=== PATIENT | female | born 1950 | race Caucasian/White ===

== ENCOUNTER 2017-12-08 15:33 | Inpatient (IN) | payer MEDICARE, OTHER ==
[~2017-12-08] VITALS: Ht 157.5 cm; Wt 90.0 kg
[~2017-12-08 15:33] MED LIST: ESTR1.25; FLUTI220I; SYNT25TA; TRAZ300T2; TRIA3AER
[2017-12-08 15:37] VITALS: BP 127/74; PULSE 73; RESP 18; TEMP 98.3; O2SAT 96
[2017-12-08] MEDS ORDERED: IVIG10P4 IMPLANT (16:13)
[2017-12-08] MEDS ORDERED: SYNT112T PO (16:13)
[2017-12-08] MEDS ORDERED: TRIA1SPR6 EACH NARE (16:13)
[2017-12-08] MEDS ORDERED: ACTO5TAB PO (16:13)
[2017-12-08] MEDS ORDERED: GUAI1TAB18 PO (16:13)
[2017-12-08] MEDS ORDERED: TRAZ100T10 PO (16:13)
[2017-12-08] MEDS ORDERED: ESTR0.5T PO (16:13)
[2017-12-08] MEDS ORDERED: CLAR10CA3 PO (16:13)
--- NOTE | 2017-12-08 16:27 | PD ---
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 She is actually in town from [place] visiting her grandson who was hospitalized. She states she called her regular physician in [place] who follows her for these immune compromise and told her to come to the emergency department to get checked out. She is also has several other complaints including a dry sore throat, some chest discomfort which is very vague as well as some suprapubic discomfort. The patient states she has a history of urinary tract infections and is just completed a course of antibiotics and is scheduled to have a cystoscopy in the near future. She states mild nausea no diarrhea. Also states she has a history of chronic colitis. She states this feels somewhat different however. States symptoms are moderate, left side of her abdomen, so she was some mild nausea, not relieved with prehospital Zofran, context as above. PFSH Past Medical History Asthma: Yes Autoimmune Disease: Yes (GENERALIZED IMMUNE DIFFICIENCY, leukemia) Anxiety: Yes Cardiovascular Problems: Yes (HTN) Diminished Hearing: No Thyroid Disease: Yes ?: Not Past Surgical History Abdominal Surgery: Yes (lypoma and cyst removed) Hysterectomy: Yes Social History Alcohol Use: No Tobacco Use: No Substance Use: No Allergies-Medications (Allergen,Severity, Reaction): Coded Allergies: morphine (Unverified Allergy, Mild, NAUSEA, 02/21/17) Uncoded Allergies: NOVACAINE (Allergy, Severe, 08/05/06) Reported Meds & Prescriptions Reported Meds & Active Scripts Active Reported Trazodone (Trazodone HCl) 100 Mg Tablet 100 Mg PO HS Actonel (Risedronate) 5 Mg Tab 25 Mg PO DAILY Mucinex (Guaifenesin) 1,200 Mg Tab.er.12h 1 Tab PO DAILY Nasacort Allergy 24Hr Nasal (Triamcinolone Nasal) 55 Mcg Spr 1 [place] EACH NARE DAILY Claritin (Loratadine) 10 Mg Cap 10 Mg PO DAILY Estradiol 0.5 Mg Tab 0.5 Mg PO DAILY Synthroid (Levothyroxine Sodium) 112 Mcg Tab 112 Mcg PO DAILY Privigen Inj (Immune Globulin) 10 % Inj 30 % IMPLANT DIRECTED Review of Systems Except as stated in HPI: all other systems reviewed are Neg Physical Exam Narrative GENERAL: Well-developed well-nourished nontoxic and appears in minimal discomfort. SKIN: Focused skin assessment warm/dry. HEAD: Atraumatic. Normocephalic. EYES: Pupils equal and round. No scleral icterus. No injection or drainage. ENT: No nasal bleeding or discharge. Mucous membranes pink and moist. Oropharynx clear moist, TMs clear bilaterally NECK: Trachea midline. No JVD. CARDIOVASCULAR: Regular rate and rhythm. No murmur appreciated. RESPIRATORY: No accessory muscle use. Clear to auscultation. Breath sounds equal bilaterally. GASTROINTESTINAL: Abdomen soft, trivially tender in all 4 quadrants, there is a left-sided well-healed abdominal scar which she states is from superficial lipoma removal. There is no CVA tenderness, no rebound no percussive tenderness , normal active bowel sounds, nondistended. Hepatic and splenic margins not palpable. MUSCULOSKELETAL: No obvious deformities. No clubbing. No cyanosis. No edema. NEUROLOGICAL: Awake and alert. No obvious cranial nerve deficits. Motor grossly within normal limits. Normal speech. PSYCHIATRIC: Appropriate mood and affect; insight and judgment normal. Data Data Last Documented VS Vital Signs Date Time Temp Pulse Resp B/P (MAP) Pulse Ox O2 Delivery O2 Flow Rate FiO2 12/08/17 19:51 70 20 126/70 (88) 94 Room Air 12/08/17 15:37 98.3 Orders Orders Electrocardiogram (12/08/17 16:21) Ckmb (Isoenzyme) Profile (12/08/17 16:21) Complete Blood Count With Diff (12/08/17 16:21) Comprehensive Metabolic Panel (12/08/17 16:21) Magnesium (Mg) (12/08/17 16:21) Troponin I (12/08/17 16:21) Lipase (12/08/17 16:21) Chest, Single Ap (12/08/17 16:21) Ecg Monitoring (12/08/17 16:21) Bilateral Bp Monitoring (12/08/17 16:21) Iv Access Insert/Monitor (12/08/17 16:21) Oximetry (12/08/17 16:21) Oxygen Administration (12/08/17 16:21) Sodium Chloride 0.9% Flush (Ns Flush) (12/08/17 16:30) Sodium Chlorid 0.9% 500 Ml Inj (Ns 500 M (12/08/17 16:30) Promethazine Inj (Phenergan Inj) (12/08/17 16:30) Ct Abd/Pel W Iv Contrast(Rout) (12/08/17 ) CKMB (12/08/17 16:50) CKMB% (12/08/17 16:50) Lorazepam Inj (Ativan Inj) (12/08/17 17:45) Iohexol 350 Inj (Omnipaque 350 Inj) (12/08/17 18:11) Ketorolac Inj (Toradol Inj) (12/08/17 19:45) Admit Order (Ed Use Only) (12/08/17 ) Consult General Surgery (12/08/17 ) Admit To Inpatient (12/08/17 ) Vital Signs (Adult) Q4H (12/08/17 20:12) Activity Oob Ad Sneha (12/08/17 20:12) Intake + Output SWEETIE.QSHIFT (12/08/17 20:12) Diet Npo (12/09/17 Breakfast) Sodium Chlor 0.9% 1000 Ml Inj (Ns 1000 M (12/08/17 20:12) Sodium Chloride 0.9% Flush (Ns Flush) (12/08/17 20:15) Sodium Chloride 0.9% Flush (Ns Flush) (12/08/17 21:00) Basic Metabolic Panel (Bmp) (12/09/17 06:00) Complete Blood Count With Diff (12/09/17 06:00) Case Management Consult (12/08/17 20:12) Scd Bilateral/Knee High SWEETIE.BID (12/08/17 20:12) Naloxone Inj (Narcan Inj) (12/08/17 20:15) Inpatient Certification (12/08/17 ) Metoclopramide Inj (Reglan Inj) (12/08/17 20:15) Patient Transfer (12/08/17 ) Labs Laboratory Tests Test 12/08/17 16:50 White Blood Count 11.5 TH/MM3 Red Blood Count 5.41 MIL/MM3 Hemoglobin 15.1 GM/DL Hematocrit 46.1 % Mean Corpuscular Volume 85.3 FL Mean Corpuscular Hemoglobin 28.0 PG Mean Corpuscular Hemoglobin Concent 32.8 % Red Cell Distribution Width 12.9 % Platelet Count 255 TH/MM3 Mean Platelet Volume 9.5 FL Neutrophils (%) (Auto) 63.8 % Lymphocytes (%) (Auto) 28.0 % Monocytes (%) (Auto) 6.3 % Eosinophils (%) (Auto) 0.3 % Basophils (%) (Auto) 1.6 % Neutrophils # (Auto) 7.4 TH/MM3 Lymphocytes # (Auto) 3.2 TH/MM3 Monocytes # (Auto) 0.7 TH/MM3 Eosinophils # (Auto) 0.0 TH/MM3 Basophils # (Auto) 0.2 TH/MM3 CBC Comment DIFF FINAL Differential Comment Blood Urea Nitrogen 15 MG/DL Creatinine 0.84 MG/DL Random Glucose 105 MG/DL Total Protein 7.5 GM/DL Albumin 3.8 GM/DL Calcium Level 8.6 MG/DL Magnesium Level 2.2 MG/DL Alkaline Phosphatase 79 U/L Aspartate Amino Transf (AST/SGOT) 25 U/L Alanine Aminotransferase (ALT/SGPT) 28 U/L Total Bilirubin 0.6 MG/DL Sodium Level 139 MEQ/L Potassium Level 4.2 MEQ/L Chloride Level 105 MEQ/L Carbon Dioxide Level 25.7 MEQ/L Anion Gap 8 MEQ/L Estimat Glomerular Filtration Rate 68 ML/MIN Total Creatine Kinase 165 U/L Creatine Kinase MB 1.4 NG/ML Lipase 116 U/L MDM Medical Decision Making Medical Screen Exam Complete: Yes Emergency Medical Condition: Yes Differential Diagnosis Gastritis, gastroenteritis, pancreatitis, colitis, acute abdomen seems unlikely , dehydration, ACS unlikely peer Narrative Course Patient room to the emergency department, has multiple complaints but her chief complaint is abdominal discomfort and nausea and vomiting. Also complains of neck pain as well as some chest discomfort which very vague and some dysuria. Patient's abdomen is fairly benign, has normoactive bowel sounds. On further history the patient states that she has had a small bowel obstruction in the past 2, she has had a hysterectomy in certainly could consider abdominal adhesions. CT of her abdomen was performed showing: Last 24 hours Impressions Chest X-Ray 6/1/18 1621 Signed Impressions: CONCLUSION: No acute cardiopulmonary disease. Abdomen/Pelvis CT 12/08/17 0000 Signed Impressions: CONCLUSION: 1. Abnormal bowel gas pattern with multiple loops of borderline dilated small bowel with air-fluid levels as well as a transition zone in the anterior lower abdomen. The small bowel past this point is decompressed as is the colon. This is of concern for early or partial small bowel obstruction. There is mild infla mmatory change and there is ascitic fluid in the pelvis. 2. 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 3. Hepatic steatosis with subtle low-attenuation lesion right lobe of the live r which is nonspecific. 4. Small hiatal hernia. I reviewed the images and certainly this appears that is more likely a closed loop segment small bowel obstruction. The patient was discussed through OR tech with Dr. Perez who recommends admission to the hospital n.p.o. status and transfer to [facility]. Patient was discussed with Livia FLAHERTY for Dr. Hartmann who is agreeable for admission. NG tube decompression was deferred to the stomach does not appear to have any significant gastric distention, the patient and vomiting. Diagnosis Primary Impression: Small bowel obstruction Admitting Information Admitting Physician Requests: Admit Condition: Stable [place]let Peng MD Dec 08, 2017 16:27
[2017-12-08] MEDS ORDERED: SODIUM CHLORID 0.9% 500 ML INJ 500 ML IV ONE (16:30)
[2017-12-08] MEDS ORDERED: PROMETHAZINE INJ 25 MG/ML VIAL IM ONE (16:30)
--- NOTE | 2017-12-08 16:58 | RADRPT ---
EXAM DATE: 12/08/2017 4:47 PM EDT AGE/SEX: 67 years / Female INDICATIONS: Chest pain. CLINICAL DATA: This is the patient's initial encounter. Patient reports that signs and symptoms have been present for 1 day and indicates a pain score of 7/10. MEDICAL/SURGICAL HISTORY: . Thyroid disease, Thyroid cyst, HTN, Asthma, Anxiety, Leukemia Hyst erectomy. Cyst removal, Infusaport COMPARISON: No prior [place] exams available for comparison. FINDINGS: A single AP view of the chest demonstrates the lungs to be symmetrically aerated without evidence of mass, infiltrate or effusion. The cardiomediastinal contours are unremarkable. Osseous structures a re intact. There is a right-sided implantable port catheter in place. There are overlying electrocar diogram leads. CONCLUSION: No acute cardiopulmonary disease. Electronically signed by: Ihsan Segal MD 12/08/2017 4:57 PM EDT
[2017-12-08 17:13] LABS: CHLORIDE 105 MEQ/L (98-107); SODIUM (NA) 139 MEQ/L (136-145)
[2017-12-08 17:15] LABS: AUTOMATED NEUTROPHIL # 7.4 TH/MM3 (1.8-7.7); BASOPHIL # 0.2 TH/MM3 (0-0.2); BASOPHIL % 1.6 % (0.0-2.0); EOSINOPHIL % 0.3 % (0.0-4.0); HEMATOCRIT 46.1 % (35.0-46.0); HEMOGLOBIN 15.1 GM/DL (11.6-15.3); LYMPHOCYTE # 3.2 TH/MM3 (1.0-4.8); MEAN CELL VOLUME 85.3 FL (80.0-100.0); MEAN CORPUSCULAR HGB CONC 32.8 % (32.0-36.0); MEAN PLATELET VOLUME 9.5 FL (7.0-11.0); MONO % 6.3 % (0.0-8.0); MONOCYTE # 0.7 TH/MM3 (0-0.9); NEUT % 63.8 % (16.0-70.0); PLATELET COUNT 255 TH/MM3 (150-450); RED BLOOD COUNT 5.41 MIL/MM3 (4.00-5.30); RED CELL DISTRIBUTION WIDTH 12.9 % (11.6-17.2); WHITE BLOOD COUNT 11.5 TH/MM3 (4.0-11.0)
[2017-12-08 17:17] LABS: ALBUMIN 3.8 GM/DL (3.4-5.0); BICARBONATE 25.7 MEQ/L (21.0-32.0); BLOOD UREA NITROGEN 15 MG/DL (7-18); CALCIUM 8.6 MG/DL (8.5-10.1); GLUCOSE,RANDOM 105 MG/DL (74-106); MAGNESIUM 2.2 MG/DL (1.5-2.5)
[2017-12-08 17:20] LABS: ALT (GPT) 28 U/L (10-53); AST (GOT) 25 U/L (15-37); CREATININE 0.84 MG/DL (0.50-1.00); GLOMERULAR FILTRATION RATE 68 ML/MIN (>89)
[2017-12-08 17:22] LABS: TOTAL BILIRUBIN ADULT 0.6 MG/DL (0.2-1.0); TOTAL PROTEIN 7.5 GM/DL (6.4-8.2)
[2017-12-08 17:23] LABS: ALKALINE PHOSPHATASE 79 U/L (45-117)
[2017-12-08 17:25] LABS: TROPONIN I LESS THAN 0.02 NG/ML (0.02-0.05)
[2017-12-08] MEDS ORDERED: LORazepam 2 MG/ML VIAL IV PUSH ONE (17:45)
[2017-12-08] MEDS: SODIUM CHLORIDE 0.9% FLUSH 10 ML FLUSH IVF PRN ×2 (17:50→19:48)
[2017-12-08] MEDS ORDERED: IOHEXOL 350 MG/ML 10 ML VIAL (for RAD DIAG) IVCONTRAST ONE (18:11)
[2017-12-08 18:23] VITALS: O2SAT 97
--- NOTE | 2017-12-08 18:39 | RADRPT ---
EXAM DATE: 12/08/2017 6:11 PM EDT AGE/SEX: 67 years / Female INDICATIONS: Left abdominal pain and nausea. CLINICAL DATA: This is the patient's initial encounter. Patient reports that signs and symptoms have been present for 1 day and indicates a pain score of 5/10. MEDICAL/SURGICAL HISTORY: Leukemia. Hypertension. Asthma. Colitis. Hysterectomy. ORAL CONTRAST: No oral contrast ingested. RADIATION DOSE: 18.72 CTDI (mGy) COMPARISON: No prior [place] exams available for comparison. TECHNIQUE: Multiple contiguous axial images were obtained through the abdomen and pelvis following b olus infusion of 90 ml Omnipaque 350 (iohexol) nonionic water-soluble contrast as a single exam dos e. No oral contrast ingested. Using automated exposure control and adjustment of the mA and/or kV ac cording to patient size, the radiation dose was kept as low as reasonably achievable to obtain optima l diagnostic quality images. FINDINGS: Lower Lungs: The visualized lower lungs are clear. Liver: The liver has a homogeneous density with a subtle low-attenuation area noted in the right lobe on axial image #18. There is no dilation of the biliary tree. There is mild hepatic steatosis. The g allbladder is unremarkable. Spleen: Homogeneous density without enlargement. Pancreas: Unremarkable without mass or calcification. Kidneys: Normal in size and shape. No evidence of mass or hydronephrosis. Adrenal Glands: The right adrenal gland is unremarkable. Left adrenal gland contains a low-attenuat ion mass measuring 1.9 x 1.4 cm and 24 Hounsfield units in density. Aorta: The aorta and proximal iliac vessels are grossly unremarkable without aneurysmal dilation. Bowel/Mesentery: No oral contrast was given limiting the sensitivity. There is a small hiatal hernia. There are several loops of borderline dilated small bowel in the midabdomen measuring up to 3 cm in diameter fluid and small air-fluid levels. There is mild surrounding inflammatory change. The distal small bowel is decompressed as is the colon. There is no focal mass. There is a transition zone in th e anterior lower abdomen. There is a [id number] amount of ascitic the pelvis. There are multip le calcified phleboliths. Abdominal Wall: Intact. Retroperitoneum: No evidence of adenopathy in the retrocrural, para-aortic, or deep pelvic regions. Bladder: Contours are smooth. Reproductive Organs: No abnormal masses or calcifications seen. Inguinal: The inguinal region is unremarkable without evidence of adenopathy. Bony Structures: Unremarkable. CONCLUSION: 1. Abnormal bowel gas pattern with multiple loops of borderline dilated small bowel with air-fluid l evels as well as a transition zone in the anterior lower abdomen. The small bowel past this point is decompressed as is the colon. This is of concern for early or partial small bowel obstruction. There is mild inflammatory change and there is ascitic fluid in the pelvis. 2. Low-attenuation lesion in the left adrenal gland most consistent with an adenoma. 3. Hepatic steatosis with subtle low-attenuation lesion right lobe of the liver which is nonspecific . 4. Small hiatal hernia. Electronically signed by: Ihsan Segal MD 12/08/2017 6:38 PM EDT
[2017-12-08] MEDS ORDERED: KETOROLAC TROMETHAMINE 30 MG/ML (IVP) VIAL IV PUSH ONE (19:45)
[2017-12-08 19:51] VITALS: BP 126/70; PULSE 70; RESP 20; O2SAT 94
[2017-12-08] MEDS ORDERED: SODIUM CHLORIDE 0.9% FLUSH 10 ML FLUSH IV FLUSH PRN (20:15)
[2017-12-08] MEDS ORDERED: NALOXONE HCL 0.4 MG/ML AMP IV PUSH PRN (20:15)
[2017-12-08 20:56] VITALS: BP 98/48; PULSE 66; RESP 16; O2SAT 93
[2017-12-08] MEDS: SODIUM CHLORIDE 0.9% FLUSH 10 ML FLUSH IV FLUSH SCH (21:06)
[2017-12-08] MEDS: SODIUM CHLOR 0.9% 1000 ML INJ 1,000 ML IV SCH (21:06)
[2017-12-08 22:38] VITALS: BP_SYST 111; BP_SYST 124; BP_DIAS 57; BP_DIAS 68; PULSE 63; RESP 16; O2SAT 96
[2017-12-08 22:47] VITALS: BP 124/63
[2017-12-09] VITALS: BP 130/73; PULSE 64; RESP 20; TEMP 97.3; O2SAT 96
--- NOTE | 2017-12-09 02:21 | HHI.HP ---
[facility] Service [facility] Primary Care Physician Unknown Admission Diagnosis Small Bowel Obstruction. 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 Patient states on she began to have sharp, abdominal pain, 9/10 throughout with no radiation and with nausea and vomiting. She did have a liquid BM this morning. Denies any chest pain or sob. 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 htn Hypothyroid Past Surgical History lypoma cyst removed Hysterectomy Reported Medications Reported Meds & Active Scripts Active Reported Trazodone (Trazodone HCl) 100 Mg Tablet 100 Mg PO HS Actonel (Risedronate) 5 Mg Tab 25 Mg PO DAILY Mucinex (Guaifenesin) 1,200 Mg Tab.er.12h 1 Tab PO DAILY Nasacort Allergy 24Hr Nasal (Triamcinolone Nasal) 55 Mcg Spr 1 [place] EACH NARE DAILY Claritin (Loratadine) 10 Mg Cap 10 Mg PO DAILY Estradiol 0.5 Mg Tab 0.5 Mg PO DAILY Synthroid (Levothyroxine Sodium) 112 Mcg Tab 112 Mcg PO DAILY Privigen Inj (Immune Globulin) 10 % Inj 30 % IMPLANT DIRECTED Allergies: Coded Allergies: morphine (Unverified Allergy, Mild, NAUSEA, 02/21/17) Uncoded Allergies: NOVACAINE (Allergy, Severe, 08/05/06) Active Ordered Medications Current Medications Medications (Trade) Dose Ordered Sig/Junito Route Start Time Stop Time Status Last Admin (NS Flush) 2 ml UNSCH PRN IVF 12/08/17 16:30 12/08/17 19:48 Sodium Chloride 1,000 ml @ 100 mls/hr Q10H IV 12/08/17 20:12 6/1/18 21:06 (NS Flush) 2 ml UNSCH PRN IV FLUSH 12/08/17 20:15 (NS Flush) 2 ml BID IV FLUSH 12/08/17 21:00 12/08/17 21:06 (Narcan Inj) 0.4 mg UNSCH PRN IV PUSH 12/08/17 20:15 (Reglan Inj) 5 mg Q8H PRN IV PUSH 12/08/17 20:15 (Estradiol) 0.5 mg DAILY PO 12/09/17 09:00 (Synthroid) 112 mcg DAILY@0600 PO 12/09/17 06:00 (Claritin) 10 mg DAILY PO 12/09/17 09:00 (Desyrel) 100 mg HS PO 12/09/17 21:00 Family History patient denies any family history Social History Patient denies any tobacco, alcohol or illicit drug use Physical Exam Vital Signs Vital Signs Date Time Temp Pulse Resp B/P (MAP) Pulse Ox O2 Delivery O2 Flow Rate FiO2 12/09/17 00:00 97.3 64 20 130/73 (92) 96 12/08/17 22:47 68 6 124/63 (83) 96 12/08/17 22:38 63 16 124/68 (86) 96 Room Air 111/57 (75) 12/08/17 20:56 66 16 98/48 (65) 93 Room Air 12/08/17 19:51 70 20 126/70 (88) 94 Room Air 12/08/17 18:23 97 12/08/17 18:23 97 12/08/17 16:06 18 12/08/17 15:37 98.3 73 18 127/74 (91) 96 Physical Exam GENERAL: This is a well-nourished, well-developed patient, in no apparent distress. SKIN: No rashes, ecchymoses or lesions. Cool and dry. HEAD: Atraumatic. Normocephalic. No temporal or scalp tenderness. EYES: Pupils equal round and reactive. Extraocular motions intact. No scleral icterus. No injection or drainage. ENT: Nose without bleeding, purulent drainage or septal hematoma. Throat without erythema, tonsillar hypertrophy or exudate. Uvula midline. Airway patent. NECK: Trachea midline. No JVD or lymphadenopathy. Supple, nontender, no meningeal signs. CARDIOVASCULAR: Regular rate and rhythm without murmurs, gallops, or rubs. RESPIRATORY: Clear to auscultation. Breath sounds equal bilaterally. No wheezes , rales, or rhonchi. GASTROINTESTINAL: Abdomen soft, non-tender, nondistended. No hepato-splenomegaly , or palpable masses. No guarding. MUSCULOSKELETAL: Extremities without clubbing, cyanosis, or edema. No joint tenderness, effusion, or edema noted. No calf tenderness. Negative Homans sign bilaterally. NEUROLOGICAL: Awake and alert. Cranial nerves II through XII intact. Motor and sensory grossly within normal limits. Five out of 5 muscle strength in all muscle groups. Normal speech. Laboratory Laboratory Tests Test 12/08/17 16:50 White Blood Count 11.5 Red Blood Count 5.41 Hemoglobin 15.1 Hematocrit 46.1 Mean Corpuscular Volume 85.3 Mean Corpuscular Hemoglobin 28.0 Mean Corpuscular Hemoglobin Concent 32.8 Red Cell Distribution Width 12.9 Platelet Count 255 Mean Platelet Volume 9.5 Neutrophils (%) (Auto) 63.8 Lymphocytes (%) (Auto) 28.0 Monocytes (%) (Auto) 6.3 Eosinophils (%) (Auto) 0.3 Basophils (%) (Auto) 1.6 Neutrophils # (Auto) 7.4 Lymphocytes # (Auto) 3.2 Monocytes # (Auto) 0.7 Eosinophils # (Auto) 0.0 Basophils # (Auto) 0.2 CBC Comment DIFF FINAL Differential Comment Blood Urea Nitrogen 15 Creatinine 0.84 Random Glucose 105 Total Protein 7.5 Albumin 3.8 Calcium Level 8.6 Magnesium Level 2.2 Alkaline Phosphatase 79 Aspartate Amino Transf (AST/SGOT) 25 Alanine Aminotransferase (ALT/SGPT) 28 Total Bilirubin 0.6 Sodium Level 139 Potassium Level 4.2 Chloride Level 105 Carbon Dioxide Level 25.7 Anion Gap 8 Estimat Glomerular Filtration Rate 68 Total Creatine Kinase 165 Creatine Kinase MB 1.4 Lipase 116 Result Diagram: 12/08/17 1650 12/08/17 1650 Imaging Last Impressions Chest X-Ray 12/08/17 1621 Signed Impressions: CONCLUSION: No acute cardiopulmonary disease. Abdomen/Pelvis CT 12/08/17 0000 Signed Impressions: CONCLUSION: 1. Abnormal bowel gas pattern with multiple loops of borderline dilated small bowel with air-fluid levels as well as a transition zone in the anterior lower abdomen. The small bowel past this point is decompressed as is the colon. This is of concern for early or partial small bowel obstruction. There is mild infla mmatory change and there is ascitic fluid in the pelvis. 2. 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 3. Hepatic steatosis with subtle low-attenuation lesion right lobe of the live r which is nonspecific. 4. Small hiatal hernia. Caprini VTE Risk Assessment Caprini VTE Risk Assessment: No/Low Risk (score <= 1) Caprini Risk Assessment Model Point Value = 1 Point Value = 2 Point Value = 3 Point Value = 5 Age 41-60 Minor surgery BMI > 25 kg/m2 Swollen legs Varicose veins or History of unexplained or recurrent spontaneous Oral contraceptives or hormone replacement Sepsis (< 1 month) Serious lung disease, including pneumonia (< 1 month) Abnormal pulmonary function Acute myocardial infarction Congestive heart failure (< 1 month) History of inflammatory bowel disease Medical patient at bed rest Age 61-74 Arthroscopic surgery Major open surgery (> 45 min) Laparoscopic surgery (> 45 min) Malignancy Confined to bed (> 72 hours) Immobilizing plaster cast Central venous access Age >= 75 History of VTE Family history of VTE Factor V Leiden Prothrombin [id number] Lupus anticoagulant Anticardiolipin antibodies Elevated serum homocysteine Heparin-induced thrombocytopenia Other congenital or acquired thrombophilia Stroke (< 1 month) Elective arthroplasty Hip, pelvis, or leg fracture Acute spinal cord injury (< 1 month) Prophylaxis Regimen Total Risk Factor Score Risk Level Prophylaxis Regimen 0-1 Low Early ambulation 2 Moderate Order ONE of the following: *Sequential Compression Device (SCD) *Heparin 5000 units SQ BID 3-4 Higher Order ONE of the following medications: *Heparin 5000 units SQ TID *Enoxaparin/Lovenox 40 mg SQ daily (WT < 150 kg, CrCl > 30 mL/min) *Enoxaparin/Lovenox 30 mg SQ daily (WT < 150 kg, CrCl > 10-29 mL/min) *Enoxaparin/Lovenox 30 mg SQ BID (WT < 150 kg, CrCl > 30 mL/min) AND/OR *Sequential Compression Device (SCD) 5 or more Highest Order ONE of the following medications: *Heparin 5000 units SQ TID (Preferred with Epidurals) *Enoxaparin/Lovenox 40 mg SQ daily (WT < 150 kg, CrCl > 30 mL/min) *Enoxaparin/Lovenox 30 mg SQ daily (WT < 150 kg, CrCl > 10-29 mL/min) *Enoxaparin/Lovenox 30 mg SQ BID (WT < 150 kg, CrCl > 30 mL/min) AND *Sequential Compression Device (SCD) Assessment and Plan Assessment and Plan 67 y/o female with a history of immunocompromise, 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 SBO Abdominal CT reviewed and shows Abnormal bowel gas pattern with multiple loops of borderline dilated small bowel with air-fluid levels as well as a transition zone in the anterior lower abdomen. The small bowel past this point is decompressed as is the colon. This is of concern for early or partial small bowel obstruction. There is mild inflammatory change and there is ascitic fluid in the pelvis. -Consult general surgery -IVF -Pain management with IV morphine -NPO Hypothyroid, chronic -Resume home medications DVT prophylaxis: SCDs Discussed Condition With Patient and RN Physician Certification 2 Midnight Certification Type: Admission for Inpatient Services Order for Inpatient Services The services are ordered in accordance with Medicare regulations or non- Medicare payer requirements, as applicable. In the case of services not specified as inpatient-only, they are appropriately provided as inpatient services in accordance with the 2-midnight benchmark. Estimated LOS (days): 2 days is the estimated time the patient will need to remain in the hospital, assuming treatment plan goals are met and no additional complications. Post-Hospital Plan: Home Livia Swartz Dec 09, 2017 02:21
[2017-12-09] MEDS: MORPHINE SULFATE 4 MG/ML INJ IV PRN ×2 (02:42→08:05)
[2017-12-09] MEDS: METOCLOPRAMIDE HCL 10 MG/2 ML VIAL IV PUSH PRN ×3 (02:42→19:34)
[2017-12-09] MEDS ORDERED: traZODone HCL 100 MG TAB PO ONE (03:00)
[2017-12-09] MEDS: LEVOTHYROXINE SODIUM 112 MCG TAB PO SCH (05:45)
[2017-12-09] MEDS: SODIUM CHLOR 0.9% 1000 ML INJ 1,000 ML IV SCH ×2 (05:48→15:47)
[2017-12-09 06:03] LABS: BICARBONATE 24.3 MEQ/L (21.0-32.0); CALCIUM 7.7 MG/DL (8.5-10.1); CREATININE 0.74 MG/DL (0.50-1.00)
[2017-12-09 08:00] VITALS: BP 123/63; PULSE 65; RESP 17; TEMP 98.4; O2SAT 93
[2017-12-09] MEDS: LORATADINE 10 MG TAB PO SCH (08:05)
[2017-12-09] MEDS: ESTRADIOL 1 MG TAB PO SCH (08:05)
[2017-12-09] MEDS: SODIUM CHLORIDE 0.9% FLUSH 10 ML FLUSH IV FLUSH SCH ×2 (08:06→19:36)
--- NOTE | 2017-12-09 08:57 | RADRPT ---
EXAM DATE: 12/09/2017 8:46 AM EDT AGE/SEX: 67 years / Female INDICATIONS: Abdominal pain and vomiting. CLINICAL DATA: This is the patient's initial encounter. Patient reports that signs and symptoms have been present for 3 days and indicates a pain score of 5/10. MEDICAL/SURGICAL HISTORY: . Leukemia. Hypertension. Asthma. Colitis. . Hysterectomy. COMPARISON: [facility], CT ABDOMEN & PELVIS W CONTRAST, 12/08/2017. . FINDINGS: Persistent abnormal prominence of a small bowel loop identified within the mid abdomen with the diam eter measuring 3.4 cm. There is air identified within the colon. IV contrast material identified with in the bladder. No free air is identified on this exam. CONCLUSION: Persistent appearance of incomplete small bowel obstruction. No evidence of free air. Electronically signed by: Latanya Diaz MD 12/09/2017 8:55 AM EDT
[2017-12-09] MEDS ORDERED: RISEDRONATE PO SCH (09:00)
[2017-12-09 09:10] LABS: AUTOMATED NEUTROPHIL # 7.3 TH/MM3 (1.8-7.7); BASOPHIL % 0.2 % (0.0-2.0); EOSINOPHIL # 0.1 TH/MM3 (0-0.4); EOSINOPHIL % 0.6 % (0.0-4.0); HEMATOCRIT 40.7 % (35.0-46.0); LYMPH % 25.9 % (9.0-44.0); LYMPHOCYTE # 2.9 TH/MM3 (1.0-4.8); MEAN CELL VOLUME 86.3 FL (80.0-100.0); MEAN CORPUSCULAR HEMOGLOBIN 29.8 PG (27.0-34.0); MEAN CORPUSCULAR HGB CONC 34.5 % (32.0-36.0); MEAN PLATELET VOLUME 9.5 FL (7.0-11.0); MONO % 8.3 % (0.0-8.0); MONOCYTE # 0.9 TH/MM3 (0-0.9); PLATELET COUNT 223 TH/MM3 (150-450); RED BLOOD COUNT 4.72 MIL/MM3 (4.00-5.30); RED CELL DISTRIBUTION WIDTH 13.9 % (11.6-17.2); WHITE BLOOD COUNT 11.2 TH/MM3 (4.0-11.0)
[2017-12-09] MEDS: HYDROmorphone HCL PF 0.5 MG/0.5 ML SYRINGE IV PRN ×4 (11:33→23:26)
[2017-12-09 12:00] VITALS: BP 103/54; PULSE 75; RESP 17; TEMP 98.2; O2SAT 90
[2017-12-09 16:00] VITALS: BP 137/61; PULSE 65; RESP 17; TEMP 97.8; O2SAT 93
--- NOTE | 2017-12-09 16:28 | MB ---
cc: Yuan Perez MD DATE: 12/09/2017 CHIEF COMPLAINT: Abdominal pain, small-bowel obstruction. HISTORY OF PRESENT ILLNESS: The patient is a 67-year-old female with several medical issues including B cell lymphoma, currently on immunotherapy. The patient has a history of previous bowel obstruction 2 years ago, presents with acute onset of abdominal pain. She states the pain started gradually, continued to get worse on night and increase in pain. She noted the pain was somewhat dull and intensity was 7/10 with episodes of 10/10 pain, radiation diffusely throughout the abdomen. She also had associated nausea and vomiting and 1 liquid bowel movement. She denied any shortness of breath or chest pain. She had further workup including CT scan showing small bowel obstruction. The patient is noted to have several surgeries including a large abdominal lipoma removed, hysterectomy. 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 She states a history of a bowel obstruction 2 years ago for which she was treated medically without surgery and resolved with conservative management. PAST MEDICAL HISTORY: B-cell lymphoma, leukemia, hypertension, hypothyroid, history of bowel obstruction. PAST SURGICAL HISTORY: Lymphoma removal, cyst removal, hysterectomy, teratoma excision. MEDICATIONS: See EMR. ALLERGIES: NOVOCAIN AND MORPHINE. SOCIAL HISTORY: Denies smoking, ETOH or IVDA. FAMILY HISTORY: Denies diabetes or hypertension. REVIEW OF SYSTEMS: GENERAL: Denies fevers or chills. HEENT: Denies eye pain or ear pain. NECK: Denies swelling or pain. LUNGS: Denies cough or wheeze. HEART: Denies palpitations or chest pain. ABDOMEN: Complains of nausea, vomiting, and abdominal pain. GENITOURINARY: Denies dysuria or hematuria. ENDOCRINE: Denies polyuria or polydipsia. INTEGUMENT: Denies new masses or lesions. PSYCHIATRIC: Denies change in mood or sensorium. NEUROLOGIC: Denies numbness or tingling. PHYSICAL EXAMINATION: GENERAL: The patient in no acute distress. VITAL SIGNS: Temperature 97.3, pulse 64, respirations 20, blood pressure 130/73, saturation 96%. HEENT: Pupils equal, round, and reactive. NECK: Supple. Trachea midline. LUNGS: Clear to auscultation, bilateral expansion. HEART: S1, S2. Regular rate and rhythm. ABDOMEN: Soft. Positive tenderness to palpation. No rebound, no guarding. Healed surgical incisions. Mildly obese abdomen. EXTREMITIES: Warm and well perfused. NEUROLOGIC: GCS of 15. A 5/5 motor in all extremities. INTEGUMENT: No obvious masses or lesions. NEUROLOGIC: Appropriate insight, appropriate mood and judgment. LABORATORY AND DIAGNOSTIC DATA: WBC 11.5, hemoglobin 15.1, hematocrit 46.1, platelets 255. Sodium 139, potassium 4.2, chloride 105, BUN 15, creatinine 0.8, AST 25, ALT 28, bilirubin 0.6, protein is 7.5, lipase 116. CT reviewed by myself showing dilated small bowel loops, decompressed distal small bowel loops, concern for bowel obstruction. No evidence of free air, no other masses or lesions noted. ASSESSMENT: Patient with a history of small-bowel obstruction treated conservatively, now presents with a recurrence of her bowel obstruction. Immunocompromise, hx of sbo, Hx of previous abdominal surgery. PLAN: After full workup, the patient with the above noted issues, at this point, the patient will attempt initial conservative management including IV fluids, pain control, bowel rest. The patient can have ice chips only. Discussed with the patient, there is a possibility of operative intervention given the findings on the CT scan, possible transition point and patient's continued persistent pain. We will initially check an abdominal x-ray and follow the patient very closely. Discussed with the patient in detail. MD LESLIE Ken/JESÚS , 01:00 PM , 04:27 PM [facility] CENTERDolly
--- NOTE | 2017-12-09 19:06 | HHI.PR ---
Subjective Subjective Notes Still painful in lower abdomen; retching but no further emesis. No real change, according to patient. Objective Vitals/I&O Vital Signs Date Time Temp Pulse Resp B/P (MAP) Pulse Ox O2 Delivery O2 Flow Rate FiO2 12/09/17 16:00 97.8 65 17 137/61 (86) 93 12/08/17 22:38 Room Air Labs Laboratory Tests Test 12/09/17 05:10 White Blood Count 11.2 Red Blood Count 4.72 Hemoglobin 14.0 Hematocrit 40.7 Mean Corpuscular Volume 86.3 Mean Corpuscular Hemoglobin 29.8 Mean Corpuscular Hemoglobin Concent 34.5 Red Cell Distribution Width 13.9 Platelet Count 223 Mean Platelet Volume 9.5 Neutrophils (%) (Auto) 65.0 Lymphocytes (%) (Auto) 25.9 Monocytes (%) (Auto) 8.3 Eosinophils (%) (Auto) 0.6 Basophils (%) (Auto) 0.2 Neutrophils # (Auto) 7.3 Lymphocytes # (Auto) 2.9 Monocytes # (Auto) 0.9 Eosinophils # (Auto) 0.1 Basophils # (Auto) 0.0 CBC Comment DIFF FINAL Differential Comment Blood Urea Nitrogen 14 Creatinine 0.74 Random Glucose 97 Calcium Level 7.7 Sodium Level 143 Potassium Level 3.6 Chloride Level 108 Carbon Dioxide Level 24.3 Anion Gap 11 Estimat Glomerular Filtration Rate 78 Abdomen: Other (Minimally distended; tender to palpation in lower abdomen; no peritoneal signs; some guarding.) A/P Assessment and Plan SBO, unchanged Patient reports no flatus or BM yet. Will recheck labs and KUB in AM, if no change, then anticipate laparoscopy/ laparotomy. Patient is agreeable to proceed. Discussed with patient and medical team - nurse and [facility] doctor (Gregory). Ihsan Talbot MD Dec 09, 2017 19:06
[2017-12-09 20:00] VITALS: BP 105/62; PULSE 78; RESP 17; TEMP 97.9; O2SAT 92
[2017-12-09] MEDS: traZODone HCL 100 MG TAB PO SCH (23:27)
[2017-12-10] VITALS: BP 158/82; PULSE 75; RESP 17; TEMP 97.7; O2SAT 92
[2017-12-10] MEDS ORDERED: SODIUM CHLORID 0.9% 500 ML IV PRN (00:15)
[2017-12-10] MEDS: SODIUM CHLOR 0.9% 1000 ML INJ 1,000 ML IV SCH ×3 (02:05→21:30)
[2017-12-10] MEDS: LEVOTHYROXINE SODIUM 112 MCG TAB PO SCH (05:28)
[2017-12-10 06:10] LABS: AUTOMATED NEUTROPHIL # 6.1 TH/MM3 (1.8-7.7); BASOPHIL # 0.1 TH/MM3 (0-0.2); BASOPHIL % 0.6 % (0.0-2.0); EOSINOPHIL % 0.1 % (0.0-4.0); HEMATOCRIT 39.5 % (35.0-46.0); HEMOGLOBIN 13.1 GM/DL (11.6-15.3); LYMPH % 23.3 % (9.0-44.0); MEAN CELL VOLUME 87.2 FL (80.0-100.0); MEAN CORPUSCULAR HGB CONC 33.2 % (32.0-36.0); MEAN PLATELET VOLUME 9.4 FL (7.0-11.0); MONO % 5.4 % (0.0-8.0); MONOCYTE # 0.5 TH/MM3 (0-0.9); NEUT % 70.6 % (16.0-70.0); PLATELET COUNT 217 TH/MM3 (150-450); RED BLOOD COUNT 4.53 MIL/MM3 (4.00-5.30); WHITE BLOOD COUNT 8.7 TH/MM3 (4.0-11.0)
[2017-12-10 06:34] LABS: BICARBONATE 26.1 MEQ/L (21.0-32.0); CALCIUM 7.7 MG/DL (8.5-10.1); CREATININE 0.71 MG/DL (0.50-1.00)
--- NOTE | 2017-12-10 06:47 | RADRPT ---
EXAM DATE: 12/10/2017 6:40 AM EDT AGE/SEX: 67 years / Female INDICATIONS: Abdominal pain. CLINICAL DATA: This is the patient's subsequent encounter. Patient reports that signs and symptoms h ave been present for 3 days and indicates a pain score of 4/10. MEDICAL/SURGICAL HISTORY: . Leukemia. Hypertension. Asthma. Colitis . Hysterectomy COMPARISON: [facility], CT ABDOMEN & PELVIS W CONTRAST, 12/08/2017. . FINDINGS: There is persistently distended small bowel in the right abdomen. The segments measure up to 3.7 cm. (Bowel dilatation on the left side of the abdomen is not seen. There is air within a nondistended co vasile. Free air is not seen. CONCLUSION: Persistently dilated small bowel in the right abdomen. Electronically signed by: Bert Khalil MD 12/10/2017 6:46 AM EDT
[2017-12-10] MEDS: METOCLOPRAMIDE HCL 10 MG/2 ML VIAL IV PUSH PRN (06:54)
[2017-12-10 08:00] VITALS: BP 126/58; PULSE 71; RESP 18; TEMP 99.5; O2SAT 92
[2017-12-10] MEDS: LORATADINE 10 MG TAB PO SCH (08:29)
[2017-12-10] MEDS: SODIUM CHLORIDE 0.9% FLUSH 10 ML FLUSH IV FLUSH SCH ×2 (08:30→23:22)
[2017-12-10] MEDS: ESTRADIOL 1 MG TAB PO SCH (08:30)
[2017-12-10] MEDS: HYDROmorphone HCL PF 0.5 MG/0.5 ML SYRINGE IV PRN (08:31)
--- NOTE | 2017-12-10 08:45 | EKG ---
Date Performed: 12/08/2017 Time Performed: 16:36:03 PTAGE: 67 years EKG: Sinus rhythm LOW QRS VOLTAGE IN PRECORDIAL LEADS NONSPECIFIC T-WAVE ABNORMALITY BORDERLINE ECG PREVIOUS TRACING : 11/02/1999 23.42 Since previous tracing, PVC(s) are no longer present. Nonsp ecific T-wave changes are new. QRS voltage is somewhat less in the precordial leads. DOCTOR: Yobani Nascimento Interpretating Date/Time 12/10/2017 08:44:34
--- NOTE | 2017-12-10 11:46 | HHI.PR ---
Subjective Subjective Notes persistent pain, wbc normal, nausea, no bm Objective Vitals/I&O Vital Signs Date Time Temp Pulse Resp B/P (MAP) Pulse Ox O2 Delivery O2 Flow Rate FiO2 12/10/17 08:00 99.5 71 18 126/58 (80) 92 12/08/17 22:38 Room Air Labs Laboratory Tests Test 12/10/17 04:00 White Blood Count 8.7 Red Blood Count 4.53 Hemoglobin 13.1 Hematocrit 39.5 Mean Corpuscular Volume 87.2 Mean Corpuscular Hemoglobin 29.0 Mean Corpuscular Hemoglobin Concent 33.2 Red Cell Distribution Width 14.0 Platelet Count 217 Mean Platelet Volume 9.4 Neutrophils (%) (Auto) 70.6 Lymphocytes (%) (Auto) 23.3 Monocytes (%) (Auto) 5.4 Eosinophils (%) (Auto) 0.1 Basophils (%) (Auto) 0.6 Neutrophils # (Auto) 6.1 Lymphocytes # (Auto) 2.0 Monocytes # (Auto) 0.5 Eosinophils # (Auto) 0.0 Basophils # (Auto) 0.1 CBC Comment DIFF FINAL Differential Comment Blood Urea Nitrogen 15 Creatinine 0.71 Random Glucose 92 Calcium Level 7.7 Sodium Level 144 Potassium Level 3.7 Chloride Level 110 Carbon Dioxide Level 26.1 Anion Gap 8 Estimat Glomerular Filtration Rate 82 Lungs: Clear Abdomen: Other (soft, +ttp mid abdomen) A/P Assessment and Plan sbo persistent PLAN npo pain control or today for dx lap possible ex lap possible bowel resection Yuan Perez MD Dec 10, 2017 11:45
[2017-12-10] MEDS ORDERED: NEOSTIGMINE 5 MG/5 ML SYRINGE IV PUSH ONE (12:00)
[2017-12-10] MEDS ORDERED: ONDANSETRON ODT 4 MG TAB PO ONE (12:00)
[2017-12-10] MEDS ORDERED: ONDANSETRON HCL 4 MG/2 ML VIAL IV PUSH ONE (12:00)
[2017-12-10] MEDS ORDERED: DEXAMETHASONE SOD PHOS 4 MG/ML VIAL IV ONE (12:00)
[2017-12-10] MEDS ORDERED: GLYCOPYRROLATE 1 MG/5 ML SYRINGE IV PUSH ONE (12:00)
[2017-12-10] MEDS ORDERED: ePHEDrine/NS 25 MG/5 ML SYRINGE IV ONE (12:00)
[2017-12-10] MEDS ORDERED: LIDOCAINE HCL 1% PF 5 ML SYRINGE OTHER ONE (12:00)
[2017-12-10] MEDS ORDERED: ROCURONIUM INJ 50 MG/5 ML SYRINGE IV PUSH ONE (12:00)
[2017-12-10] MEDS ORDERED: PROPOFOL 200 MG/20 ML AMP IV ONE (12:00)
[2017-12-10 12:15] VITALS: BP 124/60; PULSE 64; RESP 18; TEMP 98.4; O2SAT 93
[2017-12-10] MEDS ORDERED: BUPIVACAINE/EPINEPHRINE 0.5% PF 10 ML VIAL ONE (15:04)
[2017-12-10 16:00] VITALS: BP 133/63; PULSE 66; RESP 18; TEMP 99.1; O2SAT 94
[2017-12-10] MEDS ORDERED: ACETAMINOPHEN 1000 MG/100 ML 100 ML IV ONE (16:02)
[2017-12-10] MEDS ORDERED: metroNIDAZOLE 500 MG INJ 100 ML IV ONE (16:17)
[2017-12-10] MEDS ORDERED: ceFAZolin 2 GM PREMIX 50 ML ONE (16:17)
--- NOTE | 2017-12-10 19:34 | HHI.PR ---
Immediate Post Op Note Procedure Date: Dec 10, 2017 Pre Op Diagnosis: small bowel obstruction Post Op Diagnosis: same, adhesions, small bowel stricture Surgeon: Yuan Perez MD Insurance Investigator(s): see or sheet Procedure: dx lap, lap converted to open lysis of adhesion >60 min, sb resection x 2 Findings: extensive adhesions, stricturing of small bowel Complications: none Specimen(s) removed: small bowel x2 Anesthesia: General Drains: None Patient to: PACU Patient Condition: Good Yuan Perez MD Dec 10, 2017 19:34
[2017-12-10] MEDS ORDERED: SUGAMMADEX SODIUM 200 MG/2 ML VIAL IV PUSH ONE (19:40)
[2017-12-10] MEDS ORDERED: MIDAZOLAM HCL 2 MG/2 ML VIAL ONE (19:59)
[2017-12-10] MEDS ORDERED: *MEPERIDINE 25 MG INJ VIAL PERIprocedural Use ONLY ONE (20:01)
[2017-12-10] MEDS ORDERED: *HYDROmorphone PF 0.5 MG/0.5 ML PERIprocedure ONLY ONE ×5 (20:12→21:01)
[2017-12-10] MEDS ORDERED: DO NOT ADM ANY ANTICOAGULANT DRUGS PRN (20:15)
[2017-12-10] MEDS ORDERED: HYDROmorphone HCL PF 0.5 MG/0.5 ML SYRINGE IV ONE ×2 (21:30→21:45)
--- NOTE | 2017-12-10 22:46 | HHI.PR ---
Subjective Remarks Deferred entry - patient seen at 1:15 pm. Patient still with abdominal pain and nausea. Denies passing flatus. Afebrile. Objective Vitals Vital Signs Date Time Temp Pulse Resp B/P (MAP) Pulse Ox O2 Delivery O2 Flow Rate FiO2 12/10/17 21:15 98.0 84 12 107/53 (71) 95 Nasal Cannula 3 12/10/17 21:00 85 16 112/54 (73) 95 Nasal Cannula 3 12/10/17 20:45 83 16 124/69 (87) 96 Nasal Cannula 3 12/10/17 20:30 82 13 134/64 (87) 94 Nasal Cannula 3 12/10/17 20:15 82 11 122/58 (79) 95 Nasal Cannula 3 12/10/17 20:00 83 17 148/66 (93) 93 Nasal Cannula 4 12/10/17 19:52 98.6 90 16 125/77 (93) 92 T-Piece 10 12/10/17 16:00 99.1 66 18 133/63 (86) 94 12/10/17 12:15 98.4 64 18 124/60 (81) 93 12/10/17 08:00 99.5 71 18 126/58 (80) 92 12/10/17 00:00 97.7 75 17 158/82 (107) 92 I/O 12/09/17 12/09/17 12/09/17 12/10/17 12/10/17 12/10/17 07:00 15:00 23:00 07:00 15:00 23:00 Intake Total 0 ml 0 ml 1000 ml 1800 ml Output Total 685 ml Balance 0 ml 0 ml 1000 ml 1115 ml Intake Oral 0 ml 0 ml 0 ml 0 ml IV Total 1000 ml 400 ml Other 1400 ml Output Urine Total 655 ml Estimated Blood Loss 30 ml # Voids 1 4 2 # Bowel Movements 0 Result Diagram: 12/10/17 0400 12/10/17 0400 Imaging Last Impressions Abdomen X-Ray 12/10/17 0600 Signed Impressions: CONCLUSION: Persistently dilated small bowel in the right abdomen. Chest X-Ray 12/08/17 1621 Signed Impressions: CONCLUSION: No acute cardiopulmonary disease. Abdomen/Pelvis CT 12/08/17 0000 Signed Impressions: CONCLUSION: 1. Abnormal bowel gas pattern with multiple loops of borderline dilated small bowel with air-fluid levels as well as a transition zone in the anterior lower abdomen. The small bowel past this point is decompressed as is the colon. This is of concern for early or partial small bowel obstruction. There is mild infla mmatory change and there is ascitic fluid in the pelvis. 2. 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 3. Hepatic steatosis with subtle low-attenuation lesion right lobe of the live r which is nonspecific. 4. Small hiatal hernia. Objective Remarks AAOx3 Clear lungs BL S1S2 RRR, no MRG abd soft, diffusely tender to palpation, hypoactive bowel sounds No edma in lower extremities. 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 SBO Abdominal CT reviewed and shows Abnormal bowel gas pattern with multiple loops of borderline dilated small bowel with air-fluid levels as well as a transition zone in the anterior lower abdomen. The small bowel past this point is decompressed as is the colon. This is of concern for early or partial small bowel obstruction. There is mild inflammatory change and there is ascitic fluid in the pelvis. -IVF -Pain management with IV morphine -NPO -Appreciate general surgery assistance. Patient fo rOR later today. Hypothyroid, chronic -Continue Levothyroxine.. DVT prophylaxis: SCDs Discharge Planning Continue to monitor in the medical floor. Gilbert Cotter MD Dec 10, 2017 22:46
[2017-12-10] MEDS: metroNIDAZOLE 500 MG INJ 100 ML IV SCH (23:22)
[2017-12-10] MEDS: traZODone HCL 100 MG TAB PO SCH (23:22)
[2017-12-10] MEDS: ceFAZolin 2 GM PREMIX 50 ML IV SCH (23:22)
[2017-12-11] VITALS (10 sets, daily range): BP systolic 120–164; BP diastolic 61–77; PULSE 70–87; RESP 12–18; TEMP 97.1–100.3; O2SAT 90–98
[2017-12-11] MEDS: HYDROmorphone HCL PF 0.5 MG/0.5 ML SYRINGE IV PRN ×5 (01:03→23:47)
[2017-12-11] MEDS: METOCLOPRAMIDE HCL 10 MG/2 ML VIAL IV PUSH PRN ×2 (04:09→14:20)
[2017-12-11] MEDS: RESP: ALBUTEROL 2.5 MG/IPRATROPIUM 0.5 MG NEB (PRN) NEB (04:13)
[2017-12-11] MEDS: LEVOTHYROXINE SODIUM 112 MCG TAB PO SCH (05:26)
--- NOTE | 2017-12-11 06:04 | RADRPT ---
EXAM DATE: 12/11/2017 6:01 AM EDT AGE/SEX: 67 years / Female INDICATIONS: Altered mental status. CLINICAL DATA: This is the patient's initial encounter. Patient reports that signs and symptoms have been present for 1 day and indicates a pain score of 0/10. MEDICAL/SURGICAL HISTORY: Cardiovascular disease. Hypertension. Renal calculi. Hysterectomy. RADIATION DOSE: 66.34 CTDI (mGy) COMPARISON: No prior [facility] exams available for comparison. TECHNIQUE: CT of the head without contrast. Using automated exposure control and adjustment of the mA and/or kV according to patient size, radiation dose was kept as low as reasonably achievable to ob tain optimal diagnostic quality images. FINDINGS: Cerebrum: The ventricles are normal for age. No evidence of midline shift, mass lesion, hemorrhage or acute infarction. There is chronic white matter changes bilaterally. No extraaxial fluid collecti ons are seen. Posterior Fossa: The cerebellum and brainstem are intact. The 4th ventricle is midline. The cerebe llopontine angle is unremarkable. Extracranial: The visualized portion of the orbits is intact. Skull: The calvaria is intact. No evidence of skull fracture. CONCLUSION: 1. No acute intracranial hemorrhage. 2. Chronic bilateral white matter changes. Electronically signed by: Joaquin Puckett MD 12/11/2017 6:03 AM EDT
[2017-12-11] MEDS: SODIUM CHLORIDE 0.9% FLUSH 10 ML FLUSH IV FLUSH SCH ×2 (07:38→20:17)
[2017-12-11] MEDS: LORATADINE 10 MG TAB PO SCH (07:41)
[2017-12-11] MEDS: ESTRADIOL 1 MG TAB PO SCH (07:41)
[2017-12-11] MEDS: ceFAZolin 2 GM PREMIX 50 ML IV SCH ×3 (07:51→23:47)
[2017-12-11] MEDS: SODIUM CHLOR 0.9% 1000 ML INJ 1,000 ML IV SCH ×2 (07:51→17:03)
--- NOTE | 2017-12-11 08:15 | MP ---
cc: Yuan Perez MD DATE OF OPERATION: 12/10/2017 PREOPERATIVE DIAGNOSIS: Small bowel obstruction, adhesions. 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 SURGEON: Yuan Perez MD PUBLIC RELATIONS ACCOUNT SUPERVISOR: Kobi PROCEDURE PERFORMED: 1. Diagnostic laparoscopy. 2. Laparoscopic converted to open abdominal, lysis of adhesions, greater than 60 minutes. 3. Small bowel resection x 2. ANESTHESIA: GETA. IV FLUIDS: See anesthesia sheet. ESTIMATED BLOOD LOSS: 30 mL DRAINS: None. COMPLICATIONS: None. WOUND CLASSIFICATION: Clean/contaminated. SPECIMENS: Small bowel x 2. FINDINGS: Stricturing with adhesion of small bowel, multiple intra-abdominal adhesions intimately adhered to the anterior abdominal wall. INDICATIONS FOR PROCEDURE: The patient is a 67-year-old female who presents with a history of several surgeries, including hysterectomy and removal of a lipoma. The patient had a history of small-bowel obstruction treated medically 2 years ago. She developed a recurrence of nausea, vomiting, abdominal pain and obstruction. Therefore, decision was made, due to failure to progress, for abdominal exploration with lysis of adhesions. DETAILS OF PROCEDURE: The patient was taken to the operating suite, placed in supine position. She was prepped and draped in usual sterile fashion after induction of general endotracheal anesthesia. Brief timeout,was done stating correct patient, correct procedure, surgical site. We were all in agreement with this. Attention was directed to the left upper quadrant, where local anesthetic injected. Small stab, carl incision was made. A 5 mm Visiport Optiview was done to enter the abdomen safely. Abdomen insufflated to 15 mm of pneumoperitoneum. On inspection, no evidence of injury. There is noted to be significant amount of adhesions attached to the anterior abdominal wall of both small bowel and omentum containing. Three other ports placed, one left lower quadrant, right upper quadrant and right lower quadrant. Attempt to mobilize the adhesions was done. This was done with some difficulty and given the fact that the adhesions were so significant and failure to progress steadily, decision was made for conversion to open exploratory laparotomy. The pneumoperitoneum was removed. The camera was removed and a lower midline incision was done just superior to the umbilicus vertical. This was done with a 15 blade. Further dissection with Bovie electrocautery. A point clear of adhesions was identified superiorly and the peritoneum was entered at this point. Further dissection was done to incise inferiorly, however, again noted to be multiple adhesions to the abdominal wall with bowel. Metzenbaum scissors was used and Kittner's in order to gently dissect the bowel down off the anterior abdominal wall. The bowel was completely mobilized, however, there was some tenuous friable sections and the point of obstruction and transition zone was identified. Given the transition zone was somewhat strictured and kinked, decision made for resection of this. Further proximal, approximately 2 feet, was another area again with some tenuous bowel involved with adhesions. Decision for small bowel resection of this well. The bowel was transected with a 55 Endo GI stapler, stay stitches were placed on either side. Small enterotomies were made. The TATI was made to create [id number] layer. Allis was used to grasp the combined enterotomy and a TA stapler was used to fashion a completion of closure. The Lembert sutures were done with 2-0 silk ties. Steps also were done to suture the crotch stitch and close the little mesentery defect. The bowel removed was cut between 2 hemostats and silk ties were used to ligate this as well. Again, this was done x 2. Repeat steps were done for the second very small bowel resection. Bowel noted to be clean, viable. We changed our gloves. We irrigated the abdomen, lysed further adhesions down deep in the pelvis and mobilized and ran the small bowel. No evidence of kinking or other abnormality noted. The bowel was then placed back anatomically and positioned in the abdomen. After irrigation, the fascia was closed with #1 looped Prolene x 2. Alexander were used to close the skin. RENEE dressing in place. The ports were removed and alexander placed at all port sites. The patient tolerated the procedure well with no intraoperative complications. All lap and instrument counts were correct at the end of the procedure. The patient was extubated and taken stable to PACU. MD LESLIE Ken/SKYLAR , 09:22 PM , 09:57 PM RACH[facility]
[2017-12-11] MEDS: metroNIDAZOLE 500 MG INJ 100 ML IV SCH ×3 (09:07→23:46)
--- NOTE | 2017-12-11 09:48 | HHI.PR ---
Subjective Subjective Notes altered ms last night with meds, aaox3 today, c/o pain, mild nausea Objective Vitals/I&O Vital Signs Date Time Temp Pulse Resp B/P (MAP) Pulse Ox O2 Delivery O2 Flow Rate FiO2 12/11/17 08:00 98.4 84 17 143/63 (89) 90 12/11/17 04:15 Nasal Cannula 3.00 Cardiovascular: Regular Lungs: Clear Abdomen: Other (soft romulo in place scant dry drainage ) A/P Assessment and Plan sbo persistent s/p dx lap converted to ex lap NETTIE, sb resection POD 1, CT head negative PLAN Add ofirmev/tordol clear liq diet encourage oob keep rankin for Is and Os dvt ppx Yuan Perez MD Dec 11, 2017 09:48
[2017-12-11] MEDS: ACETAMINOPHEN 1000 MG/100 ML 100 ML IV SCH ×3 (10:11→20:18)
[2017-12-11 10:47] LABS: AUTOMATED NEUTROPHIL # 11.5 TH/MM3 (1.8-7.7); BASOPHIL % 0.1 % (0.0-2.0); HEMOGLOBIN 13.3 GM/DL (11.6-15.3); LYMPH % 11.7 % (9.0-44.0); LYMPHOCYTE # 1.7 TH/MM3 (1.0-4.8); MEAN CELL VOLUME 88.2 FL (80.0-100.0); MEAN CORPUSCULAR HEMOGLOBIN 29.3 PG (27.0-34.0); MEAN CORPUSCULAR HGB CONC 33.2 % (32.0-36.0); MEAN PLATELET VOLUME 9.2 FL (7.0-11.0); MONO % 7.7 % (0.0-8.0); MONOCYTE # 1.1 TH/MM3 (0-0.9); NEUT % 80.5 % (16.0-70.0); PLATELET COUNT 198 TH/MM3 (150-450); RED BLOOD COUNT 4.54 MIL/MM3 (4.00-5.30); WHITE BLOOD COUNT 14.2 TH/MM3 (4.0-11.0)
[2017-12-11 11:09] LABS: BICARBONATE 24.4 MEQ/L (21.0-32.0); CALCIUM 7.3 MG/DL (8.5-10.1); CREATININE 0.83 MG/DL (0.50-1.00)
[2017-12-11] MEDS ORDERED: POTASSIUM CHLORIDE 10 MEQ CONTROLLED RELEASE TAB PO ONE (11:30)
[2017-12-11 11:44] LABS: CALCIUM-PROTEIN CORRECTED 8.1 MG/DL (8.5-10.1); TOTAL PROTEIN 5.6 GM/DL (6.4-8.2)
[2017-12-11] MEDS: KETOROLAC TROMETHAMINE 30 MG/ML (IVP) VIAL IV PUSH SCH ×3 (11:48→23:46)
--- NOTE | 2017-12-11 15:10 | HHI.PR ---
Subjective Remarks The patient complains of abdominal pain, denies passing flatus. States she was not nauseous earlier but she is starting to feel nauseous after she ate. Denies any vomiting and she has been tolerating diet. As per RN report the patient had altered mental status last night with medications. AAO 3 today. Objective Vitals Vital Signs Date Time Temp Pulse Resp B/P (MAP) Pulse Ox O2 Delivery O2 Flow Rate FiO2 12/11/17 12:00 97.1 77 17 131/62 (85) 90 12/11/17 09:50 93 21 12/11/17 08:00 98.4 84 17 143/63 (89) 90 12/11/17 04:29 98.1 82 16 164/77 (106) 96 12/11/17 04:15 98 Nasal Cannula 3.00 12/11/17 04:00 100.3 12/11/17 03:42 84 12 156/76 (102) 96 12/11/17 00:00 97.9 87 16 131/65 (87) 95 12/10/17 21:15 98.0 84 12 107/53 (71) 95 Nasal Cannula 3 12/10/17 21:00 85 16 112/54 (73) 95 Nasal Cannula 3 12/10/17 20:45 83 16 124/69 (87) 96 Nasal Cannula 3 12/10/17 20:30 82 13 134/64 (87) 94 Nasal Cannula 3 12/10/17 20:15 82 11 122/58 (79) 95 Nasal Cannula 3 12/10/17 20:00 83 17 148/66 (93) 93 Nasal Cannula 4 12/10/17 19:52 98.6 90 16 125/77 (93) 92 T-Piece 10 12/10/17 16:00 99.1 66 18 133/63 (86) 94 I/O 12/10/17 12/10/17 12/10/17 12/11/17 12/11/17 12/11/17 07:00 15:00 23:00 07:00 15:00 23:00 Intake Total 1000 ml 1800 ml 150 ml Output Total 685 ml 300 ml Balance 1000 ml 1115 ml -150 ml Intake Oral 0 ml 0 ml IV Total 1000 ml 400 ml 150 ml Other 1400 ml Output Urine Total 655 ml 300 ml Estimated Blood Loss 30 ml # Voids 2 Result Diagram: 12/11/17 0953 12/11/17 0953 Imaging Last [address] 12/11/17 0000 Signed Impressions: CONCLUSION: 1. No acute intracranial hemorrhage. 2. Chronic bilateral white matter changes. Abdomen X-Ray 12/10/17 0600 Signed Impressions: CONCLUSION: Persistently dilated small bowel in the right abdomen. Abdomen X-Ray 12/09/17 0000 Signed Impressions: CONCLUSION: Persistent appearance of incomplete small bowel obstruction. No evidence of raman e air. Chest X-Ray 12/08/17 1621 Signed Impressions: CONCLUSION: No acute cardiopulmonary disease. Objective Remarks AAOx3 Clear lungs BL S1S2 RRR, no MRG abd soft, diffusely tender to palpation, hypoactive bowel sounds No edma in lower extremities. 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 SBO Abdominal CT reviewed and shows Abnormal bowel gas pattern with multiple loops of borderline dilated small bowel with air-fluid levels as well as a transition zone in the anterior lower abdomen. The small bowel past this point is decompressed as is the colon. This is of concern for early or partial small bowel obstruction. There is mild inflammatory change and there is ascitic fluid in the pelvis. -IVF -Pain management with IV morphine -NPO 12/11 persistent small bowel obstruction status post diagnostic lap reported to expiratory laparotomy with lysis of adhesions, small bowel resection. -Started on Ofirmev Toradol added by general surgery. Agree with management. -Start on clear liquid diet Hypothyroid, chronic -Continue Levothyroxine.. DVT prophylaxis: SCDs Discharge Planning Continue to monitor in the medical floor. Gilbert Cotter MD Dec 11, 2017 15:10
[2017-12-11] MEDS: traZODone HCL 100 MG TAB PO SCH (20:08)
[2017-12-12] VITALS (9 sets, daily range): BP systolic 129–155; BP diastolic 63–75; PULSE 69–80; RESP 16–18; TEMP 97.7–98.9; O2SAT 91–97
[2017-12-12] MEDS: METOCLOPRAMIDE HCL 10 MG/2 ML VIAL IV PUSH PRN (01:30)
[2017-12-12] MEDS: ONDANSETRON ODT 4 MG TAB SL PRN ×3 (03:00→15:46)
[2017-12-12] MEDS: ACETAMINOPHEN 1000 MG/100 ML 100 ML IV SCH ×4 (03:14→20:44)
[2017-12-12] MEDS: SODIUM CHLOR 0.9% 1000 ML INJ 1,000 ML IV SCH ×2 (03:15→14:12)
[2017-12-12] MEDS: HYDROmorphone HCL PF 0.5 MG/0.5 ML SYRINGE IV PRN ×3 (03:15→18:43)
[2017-12-12] MEDS: KETOROLAC TROMETHAMINE 30 MG/ML (IVP) VIAL IV PUSH SCH ×3 (06:00→18:40)
[2017-12-12] MEDS: LEVOTHYROXINE SODIUM 112 MCG TAB PO SCH (06:00)
[2017-12-12] MEDS: LORATADINE 10 MG TAB PO SCH (08:10)
[2017-12-12] MEDS: ESTRADIOL 1 MG TAB PO SCH (08:10)
[2017-12-12] MEDS: SODIUM CHLORIDE 0.9% FLUSH 10 ML FLUSH IV FLUSH SCH ×2 (08:11→20:43)
[2017-12-12] MEDS: metroNIDAZOLE 500 MG INJ 100 ML IV SCH ×2 (08:11→15:48)
[2017-12-12] MEDS: ceFAZolin 2 GM PREMIX 50 ML IV SCH ×2 (08:11→15:48)
--- NOTE | 2017-12-12 08:55 | HHI.PR ---
Subjective Subjective Notes some nausea, pain a bit better, no flatus Objective Vitals/I&O Vital Signs Date Time Temp Pulse Resp B/P (MAP) Pulse Ox O2 Delivery O2 Flow Rate FiO2 12/12/17 08:00 97.9 69 17 132/65 (87) 97 12/11/17 09:50 21 12/11/17 04:15 Nasal Cannula 3.00 Labs Laboratory Tests Test 12/11/17 09:53 White Blood Count 14.2 Red Blood Count 4.54 Hemoglobin 13.3 Hematocrit 40.0 Mean Corpuscular Volume 88.2 Mean Corpuscular Hemoglobin 29.3 Mean Corpuscular Hemoglobin Concent 33.2 Red Cell Distribution Width 14.0 Platelet Count 198 Mean Platelet Volume 9.2 Neutrophils (%) (Auto) 80.5 Lymphocytes (%) (Auto) 11.7 Monocytes (%) (Auto) 7.7 Eosinophils (%) (Auto) 0.0 Basophils (%) (Auto) 0.1 Neutrophils # (Auto) 11.5 Lymphocytes # (Auto) 1.7 Monocytes # (Auto) 1.1 Eosinophils # (Auto) 0.0 Basophils # (Auto) 0.0 CBC Comment DIFF FINAL Differential Comment Blood Urea Nitrogen 9 Creatinine 0.83 Random Glucose 154 Total Protein 5.6 Calcium Level 7.3 Sodium Level 142 Potassium Level 3.4 Chloride Level 109 Carbon Dioxide Level 24.4 Anion Gap 9 Estimat Glomerular Filtration Rate 69 Protein Corrected Calcium 8.1 Cardiovascular: Regular Lungs: Clear Abdomen: Other (incisional tenderness, romulo good seal) A/P Assessment and Plan sbo persistent s/p dx lap converted to ex lap NETTIE, sb resection POD 2, CT head negative PLAN pain control clear liq diet encourage oob dc rankin dvt ppx - lovenox IS and ambulation Yuan Perez MD Dec 12, 2017 08:55
[2017-12-12] MEDS: ENOXAPARIN SODIUM 40 MG/0.4 ML SYRINGE SQ SCH (09:59)
[2017-12-12 12:03] LABS: HEMATOCRIT 38.3 % (35.0-46.0); HEMOGLOBIN 12.5 GM/DL (11.6-15.3); MEAN CELL VOLUME 88.2 FL (80.0-100.0); MEAN CORPUSCULAR HEMOGLOBIN 28.7 PG (27.0-34.0); MEAN CORPUSCULAR HGB CONC 32.6 % (32.0-36.0); MEAN PLATELET VOLUME 9.3 FL (7.0-11.0); PLATELET COUNT 190 TH/MM3 (150-450); RED BLOOD COUNT 4.34 MIL/MM3 (4.00-5.30); RED CELL DISTRIBUTION WIDTH 14.2 % (11.6-17.2); WHITE BLOOD COUNT 13.3 TH/MM3 (4.0-11.0)
[2017-12-12 12:25] LABS: INTERNATIONAL NORMALIZED RATIO 1.3 RATIO; PROTHROMBIN TIME - PATIENT 13.5 SEC (9.8-11.6)
[2017-12-12 12:34] LABS: CALCIUM 7.5 MG/DL (8.5-10.1); CREATININE 0.69 MG/DL (0.50-1.00)
--- NOTE | 2017-12-12 16:22 | HHI.PR ---
Subjective Remarks Patient states that she had nausea all night. Still complains of abdominal pain however slightly better. Denies vomiting. Denies fevers or chills. Denies chest pain or shortness of breath. Denies passing gas. Objective Vitals Vital Signs Date Time Temp Pulse Resp B/P (MAP) Pulse Ox O2 Delivery O2 Flow Rate FiO2 12/12/17 12:00 98.1 73 18 129/63 (85) 91 12/12/17 10:50 92 Nasal Cannula 21 12/12/17 08:00 97.9 69 17 132/65 (87) 97 12/12/17 04:28 97.7 72 16 144/75 (98) 97 12/12/17 00:16 97.9 72 16 135/63 (87) 94 12/11/17 20:00 98.9 72 18 120/61 (80) 92 I/O 12/11/17 12/11/17 12/11/17 12/12/17 12/12/17 12/12/17 06:59 14:59 22:59 06:59 14:59 22:59 Intake Total 150 ml 250 ml 1060 ml 1730 ml 350 ml Output Total 300 ml 400 ml 1000 ml Balance -150 ml 250 ml 660 ml 730 ml 350 ml Intake Oral 960 ml 480 ml IV Total 150 ml 250 ml 100 ml 1250 ml 350 ml Output Urine Total 300 ml 400 ml 1000 ml # Bowel Movements 0 Result Diagram: 12/12/17 1126 12/12/17 1126 Imaging Last Impressions Head CT 12/11/17 0000 Signed Impressions: CONCLUSION: 1. No acute intracranial hemorrhage. 2. Chronic bilateral white matter changes. Abdomen X-Ray 12/10/17 0600 Signed Impressions: CONCLUSION: Persistently dilated small bowel in the right abdomen. Chest X-Ray 12/08/17 1621 Signed Impressions: CONCLUSION: No acute cardiopulmonary disease. Abdomen/Pelvis CT 12/08/17 0000 Signed Impressions: CONCLUSION: 1. Abnormal bowel gas pattern with multiple loops of borderline dilated small bowel with air-fluid levels as well as a transition zone in the anterior lower abdomen. The small bowel past this point is decompressed as is the colon. This is of concern for early or partial small bowel obstruction. There is mild infla mmatory change and there is ascitic fluid in the pelvis. 2. 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 3. Hepatic steatosis with subtle low-attenuation lesion right lobe of the live r which is nonspecific. 4. Small hiatal hernia. Objective Remarks AAOx3 Clear lungs BL S1S2 RRR, no MRG abd soft, diffusely tender to palpation, hypoactive bowel sounds No edma in lower extremities. 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 SBO Abdominal CT reviewed and shows Abnormal bowel gas pattern with multiple loops of borderline dilated small bowel with air-fluid levels as well as a transition zone in the anterior lower abdomen. The small bowel past this point is decompressed as is the colon. This is of concern for early or partial small bowel obstruction. There is mild inflammatory change and there is ascitic fluid in the pelvis. -IVF -Pain management with IV morphine 6/4 persistent small bowel obstruction status post diagnostic lap reported to expiratory laparotomy with lysis of adhesions, small bowel resection. -Started on Ofirmev Toradol added by general surgery. Agree with management. -Start on clear liquid diet 6/5 management as per general surgery. Continue clear liquid diet, encourage out of bed, Hope discontinued. Encourage out of bed. I S and ambulation. Hypothyroid, chronic -Continue Levothyroxine.. DVT prophylaxis: SCDs, Lovenox started as per general surgery recommendations. Discharge Planning Continue to monitor in the medical floor. Gilbert Cotter MD Dec 12, 2017 16:22
[2017-12-12] MEDS: traZODone HCL 100 MG TAB PO SCH (20:43)
[2017-12-13] MEDS: ONDANSETRON ODT 4 MG TAB SL PRN (00:21)
[2017-12-13] MEDS: ceFAZolin 2 GM PREMIX 50 ML IV SCH ×3 (00:21→16:00)
[2017-12-13] MEDS: HYDROmorphone HCL PF 0.5 MG/0.5 ML SYRINGE IV PRN ×3 (00:24→13:38)
[2017-12-13] MEDS: KETOROLAC TROMETHAMINE 30 MG/ML (IVP) VIAL IV PUSH SCH ×4 (00:25→17:05)
[2017-12-13 00:28] VITALS: BP 151/73; PULSE 77; RESP 17; TEMP 97.9; O2SAT 95
[2017-12-13] MEDS: SODIUM CHLOR 0.9% 1000 ML INJ 1,000 ML IV SCH ×3 (00:28→20:12)
[2017-12-13] MEDS: metroNIDAZOLE 500 MG INJ 100 ML IV SCH ×3 (00:28→17:05)
[2017-12-13] MEDS: ACETAMINOPHEN 1000 MG/100 ML 100 ML IV SCH ×4 (04:00→20:36)
[2017-12-13] MEDS: LEVOTHYROXINE SODIUM 112 MCG TAB PO SCH (06:09)
[2017-12-13 07:13] LABS: HEMATOCRIT 37.2 % (35.0-46.0); HEMOGLOBIN 12.4 GM/DL (11.6-15.3); MEAN CORPUSCULAR HEMOGLOBIN 28.9 PG (27.0-34.0); MEAN CORPUSCULAR HGB CONC 33.3 % (32.0-36.0); MEAN PLATELET VOLUME 9.6 FL (7.0-11.0); PLATELET COUNT 210 TH/MM3 (150-450); RED BLOOD COUNT 4.27 MIL/MM3 (4.00-5.30); WHITE BLOOD COUNT 11.6 TH/MM3 (4.0-11.0)
[2017-12-13] MEDS: SODIUM CHLORIDE 0.9% FLUSH 10 ML FLUSH IV FLUSH SCH ×2 (07:37→20:40)
[2017-12-13] MEDS: ESTRADIOL 1 MG TAB PO SCH (07:39)
[2017-12-13] MEDS: LORATADINE 10 MG TAB PO SCH (07:39)
[2017-12-13] MEDS: ENOXAPARIN SODIUM 40 MG/0.4 ML SYRINGE SQ SCH (07:43)
[2017-12-13 07:48] LABS: BICARBONATE 22.8 MEQ/L (21.0-32.0); CALCIUM 7.3 MG/DL (8.5-10.1); CREATININE 0.54 MG/DL (0.50-1.00); PHOSPHORUS 0.9 MG/DL (2.5-4.9)
[2017-12-13 08:00] VITALS: BP 123/72; PULSE 71; RESP 17; TEMP 98; O2SAT 97
[2017-12-13 08:08] LABS: CALCIUM-PROTEIN CORRECTED 8.2 MG/DL (8.5-10.1); TOTAL PROTEIN 5.5 GM/DL (6.4-8.2)
[2017-12-13 08:22] LABS: BACTERIA, URINE RARE /hpf; BILIRUBIN, URINE NEG (NEG); BLOOD, URINE NEG (NEG); GLUCOSE,URINE NEG (NEG); HYALINE CAST, URINE 5 /lpf (RARE); KETONE, URINE 150 mg/dL (NEG); MUCUS URINE FEW /lpf (OCC); NITRITE,URINE NEG (NEG); SQUAMOUS EPITHELIAL CELL URINE <1 /hpf (0-5); URINE COLOR YELLOW (YELLW/STRAW); URINE LEUKOCYTE ESTERASE TRACE (NEG)
--- NOTE | 2017-12-13 09:57 | HHI.PR ---
Subjective Subjective Notes still with some nausea, no flatus Objective Vitals/I&O Vital Signs Date Time Temp Pulse Resp B/P (MAP) Pulse Ox O2 Delivery O2 Flow Rate FiO2 12/13/17 08:00 98.0 71 17 123/72 (89) 97 12/12/17 20:10 Nasal Cannula 2.00 12/12/17 10:50 21 Labs Laboratory Tests Test 12/12/17 11:26 12/13/17 06:10 12/13/17 07:15 White Blood Count 13.3 11.6 Red Blood Count 4.34 4.27 Hemoglobin 12.5 12.4 Hematocrit 38.3 37.2 Mean Corpuscular Volume 88.2 87.0 Mean Corpuscular Hemoglobin 28.7 28.9 Mean Corpuscular Hemoglobin Concent 32.6 33.3 Red Cell Distribution Width 14.2 14.0 Platelet Count 190 210 Mean Platelet Volume 9.3 9.6 Prothrombin Time 13.5 Prothromb Time International Ratio 1.3 Blood Urea Nitrogen 10 8 Creatinine 0.69 0.54 Random Glucose 118 87 Calcium Level 7.5 7.3 Magnesium Level 2.0 2.0 Sodium Level 142 142 Potassium Level 3.5 3.1 Chloride Level 107 109 Carbon Dioxide Level 25.0 22.8 Anion Gap 10 10 Estimat Glomerular Filtration Rate 85 113 Total Protein 5.5 Phosphorus Level 0.9 Protein Corrected Calcium 8.2 Urine Color YELLOW Urine Turbidity CLEAR Urine pH 6.0 Urine Specific [place] 1.033 Urine Protein 30 Urine Glucose (UA) NEG Urine Ketones 150 Urine Occult Blood NEG Urine Nitrite NEG Urine Bilirubin NEG Urine Urobilinogen LESS THAN 2.0 Urine Leukocyte Esterase TRACE Urine RBC 2 Urine WBC 5 Urine Squamous Epithelial Cells <1 Urine Bacteria RARE Urine Hyaline Casts 5 Urine Mucus FEW Microscopic Urinalysis Comment CULT NOT INDICATED Cardiovascular: Regular Lungs: Clear Abdomen: Other (soft romulo good sxn) A/P Assessment and Plan sbo persistent s/p dx lap 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
[2017-12-13] MEDS: METOCLOPRAMIDE HCL 10 MG/2 ML VIAL IV PUSH PRN ×2 (10:10→20:34)
--- NOTE | 2017-12-13 11:20 | RADRPT ---
EXAM DATE: 12/13/2017 11:04 AM EDT AGE/SEX: 67 years / Female INDICATIONS: Distention, abdomen pain, post op bowel obstruction surgery 3 days. CLINICAL DATA: This is the patient's subsequent encounter. Patient reports that signs and symptoms h ave been present for 4 - 6 days and indicates a pain score of 5/10. MEDICAL/SURGICAL HISTORY: . bowel obstruction, asthma Hysterectomy. 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 . FINDINGS: The cecum is distended measures 8.3 cm in transverse diameter. The small bowel loops are slightly pr ominent not significantly changed and there is gas throughout the colon down to the rectum. There is no evidence for free intraperitoneal air. CONCLUSION: Probable mild postop ileus. Electronically signed by: Lin Hernandez MD 12/13/2017 11:19 AM EDT
[2017-12-13 12:00] VITALS: BP 124/56; PULSE 67; RESP 16; TEMP 97.9; O2SAT 93
[2017-12-13] MEDS: LORazepam 2 MG/ML VIAL IV PUSH PRN (14:23)
--- NOTE | 2017-12-13 14:48 | HHI.PR ---
Subjective Remarks Poor oral intake still not eating much Physical therapy and Occupational Therapy A.m. labs Objective Vitals Vital Signs Date Time Temp Pulse Resp B/P (MAP) Pulse Ox O2 Delivery O2 Flow Rate FiO2 12/13/17 12:00 97.9 67 16 124/56 (78) 93 12/13/17 08:00 98.0 71 17 123/72 (89) 97 12/13/17 00:28 97.9 77 17 151/73 (99) 95 12/12/17 20:27 98.9 71 18 155/69 (97) 97 12/12/17 20:10 93 Nasal Cannula 2.00 12/12/17 17:33 93 12/12/17 16:00 98.4 80 17 151/68 (95) 92 I/O 12/12/17 12/12/17 12/12/17 12/13/17 12/13/17 12/13/17 07:00 15:00 23:00 07:00 15:00 23:00 Intake Total 1730 ml 350 ml 1310 ml 480 ml 250 ml Output Total 1000 ml 550 ml Balance 730 ml 350 ml 760 ml 480 ml 250 ml Intake Oral 480 ml 220 ml 480 ml IV Total 1250 ml 350 ml 1090 ml 250 ml Output Urine Total 1000 ml 550 ml Bladder Scan Volume Amount 346 ml 150 ml # Voids 1 # Bowel Movements 0 Result Diagram: 12/13/17 0610 12/13/17 0610 Other Results Laboratory Tests Test 12/11/17 09:53 12/12/17 11:26 12/13/17 06:10 12/13/17 07:15 White Blood Count 14.2 TH/MM3 13.3 TH/MM3 11.6 TH/MM3 Red Blood Count 4.54 MIL/MM3 4.34 MIL/MM3 4.27 MIL/MM3 Hemoglobin 13.3 GM/DL 12.5 GM/DL 12.4 GM/DL Hematocrit 40.0 % 38.3 % 37.2 % Mean Corpuscular Volume 88.2 FL 88.2 FL 87.0 FL Mean Corpuscular Hemoglobin 29.3 PG 28.7 PG 28.9 PG Mean Corpuscular Hemoglobin Concent 33.2 % 32.6 % 33.3 % Red Cell Distribution Width 14.0 % 14.2 % 14.0 % Platelet Count 198 TH/MM3 190 TH/MM3 210 TH/MM3 Mean Platelet Volume 9.2 FL 9.3 FL 9.6 FL Neutrophils (%) (Auto) 80.5 % Lymphocytes (%) (Auto) 11.7 % Monocytes (%) (Auto) 7.7 % Eosinophils (%) (Auto) 0.0 % Basophils (%) (Auto) 0.1 % Neutrophils # (Auto) 11.5 TH/MM3 Lymphocytes # (Auto) 1.7 TH/MM3 Monocytes # (Auto) 1.1 TH/MM3 Eosinophils # (Auto) 0.0 TH/MM3 Basophils # (Auto) 0.0 TH/MM3 CBC Comment DIFF FINAL Differential Comment Blood Urea Nitrogen 9 MG/DL 10 MG/DL 8 MG/DL Creatinine 0.83 MG/DL 0.69 MG/DL 0.54 MG/DL Random Glucose 154 MG/DL 118 MG/DL 87 MG/DL Total Protein 5.6 GM/DL 5.5 GM/DL Calcium Level 7.3 MG/DL 7.5 MG/DL 7.3 MG/DL Sodium Level 142 MEQ/L 142 MEQ/L 142 MEQ/L Potassium Level 3.4 MEQ/L 3.5 MEQ/L 3.1 MEQ/L Chloride Level 109 MEQ/L 107 MEQ/L 109 MEQ/L Carbon Dioxide Level 24.4 MEQ/L 25.0 MEQ/L 22.8 MEQ/L Anion Gap 9 MEQ/L 10 MEQ/L 10 MEQ/L Estimat Glomerular Filtration Rate 69 ML/MIN 85 ML/MIN 113 ML/MIN Protein Corrected Calcium 8.1 MG/DL 8.2 MG/DL Prothrombin Time 13.5 SEC Prothromb Time International Ratio 1.3 RATIO Magnesium Level 2.0 MG/DL 2.0 MG/DL Phosphorus Level 0.9 MG/DL Urine Color YELLOW Urine Turbidity CLEAR Urine pH 6.0 Urine Specific [place] 1.033 Urine Protein 30 mg/dL Urine Glucose (UA) NEG mg/dL Urine Ketones 150 mg/dL Urine Occult Blood NEG Urine Nitrite NEG Urine Bilirubin NEG Urine Urobilinogen LESS THAN 2.0 MG/DL Urine Leukocyte Esterase TRACE Urine RBC 2 /hpf Urine WBC 5 /hpf Urine Squamous Epithelial Cells <1 /hpf Urine Bacteria RARE /hpf Urine Hyaline Casts 5 /lpf Urine Mucus FEW /lpf Microscopic Urinalysis Comment CULT NOT INDICATED Imaging Last Impressions Abdomen X-Ray 12/13/17 1000 Signed Impressions: CONCLUSION: Probable mild postop ileus. Head CT 12/11/17 0000 Signed Impressions: CONCLUSION: 1. No acute intracranial hemorrhage. 2. Chronic bilateral white matter changes. Chest X-Ray 12/08/17 1621 Signed Impressions: CONCLUSION: No acute cardiopulmonary disease. Abdomen/Pelvis CT 12/08/17 0000 Signed Impressions: CONCLUSION: 1. Abnormal bowel gas pattern with multiple loops of borderline dilated small bowel with air-fluid levels as well as a transition zone in the anterior lower abdomen. The small bowel past this point is decompressed as is the colon. This is of concern for early or partial small bowel obstruction. There is mild infla mmatory change and there is ascitic fluid in the pelvis. 2. 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 3. Hepatic steatosis with subtle low-attenuation lesion right lobe of the live r which is nonspecific. 4. Small hiatal hernia. Objective Remarks GENERAL: Awake alert and oriented 3 distended talkative and cooperative SKIN: Warm and dry. HEAD: Atraumatic. Normocephalic. EYES: Pupils equal and round. No scleral icterus. No injection or drainage. ENT: No nasal bleeding or discharge. Mucous membranes pink and moist. NECK: Trachea midline. No JVD. CARDIOVASCULAR: Regular rate and rhythm. RESPIRATORY: No accessory muscle use. Clear to auscultation. Breath sounds equal bilaterally. GASTROINTESTINAL: Abdomen soft, non-tender, nondistended. Hepatic and splenic margins not palpable. Obese distended MUSCULOSKELETAL: Extremities without clubbing, cyanosis, or edema. No obvious deformities. NEUROLOGICAL: Awake and alert. No obvious cranial nerve deficits. Motor grossly within normal limits. Five out of 5 muscle strength in the arms and legs. Normal speech. PSYCHIATRIC: Appropriate mood and affect; insight and judgment normal. Procedures 12/10/2017 PREOPERATIVE DIAGNOSIS: Small bowel obstruction, adhesions. 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 SURGEON: Yuan Perez MD [place] ATTENDANT: LUIS PROCEDURE PERFORMED: 1. Diagnostic laparoscopy. 2. Laparoscopic converted to open abdominal, lysis of adhesions, greater than 60 minutes. 3. Small bowel resection x 2. Medications and IVs Current Medications Sodium Chloride (NS Flush) 2 ml UNSCH PRN IVF FLUSH AFTER USING IV ACCESS Last administered on 12/08/17at 19:48; Start 12/08/17 at 16:30; Stop 12/09/17 at 03:03; Status DC Sodium Chloride 500 ml @ 500 mls/hr ONCE ONCE IV Last administered on 16:52; Start 12/08/17 at 16:30; Stop 12/08/17 at 17:29; Status DC Promethazine HCl (Phenergan Inj) 25 mg ONCE ONCE IM Last administered on at 16:52; Start 12/08/17 at 16:30; Stop 12/08/17 at 16:31; Status DC Lorazepam (Ativan Inj) 1 mg ONCE ONCE IV PUSH Last administered on 12/08/17 17 :49; Start 12/08/17 at 17:45; Stop 12/08/17 at 17:46; Status DC Iohexol (Omnipaque 350 Inj) 90 ml STK-MED ONCE IVCONTRAST Last administered on 12/08/17at 18:11; Start 12/08/17 at 18:11; Stop 12/08/17 at 18:12; Status DC Ketorolac Tromethamine (Toradol Inj) 30 mg ONCE ONCE IV PUSH Last administered on 12/08/17at 19:48; Start 12/08/17 at 19:45; Stop 12/08/17 at 19:46; Status DC Sodium Chloride 1,000 ml @ 100 mls/hr Q10H IV Last administered on 12/13/17at 10 :12; Start 12/08/17 at 20:12 Sodium Chloride (NS Flush) 2 ml UNSCH PRN IV FLUSH FLUSH AFTER USING IV ACCESS ; Start 12/08/17 at 20:15 Sodium Chloride (NS Flush) 2 ml BID IV FLUSH Last administered on 12/11/17at 20: 17; Start 12/08/17 at 21:00 Naloxone HCl (Narcan Inj) 0.4 mg UNSCH PRN IV PUSH SEE LABEL COMMENTS Last administered on 12/11/17 04:04; Start 12/08/17 at 20:15 Metoclopramide HCl (Reglan Inj) 5 mg Q8H PRN IV PUSH nausea Last administered on 12/13/17 10:10; Start 12/08/17 at 20:15 Estradiol (Estradiol) 0.5 mg DAILY PO Last administered on 12/13/17at 07:39; Start 12/09/17 at 09:00 Levothyroxine Sodium (Synthroid) 112 mcg DAILY@0600 PO Last administered on 12/13at 06:09; Start 12/09/17 at 06:00 Loratadine (Claritin) 10 mg DAILY PO Last administered on 12/13/17at 07:39; Start 12/09/17 at 09:00 Non-Formulary Medication 25 mg DAILY PO ; Start 12/09/17 at 09:00; Status UNV Trazodone HCl (Desyrel) 100 mg HS PO Last administered on 12/12/17at 20:43; Start 12/09/17 at 21:00 Morphine Sulfate (Morphine Inj) 2 mg Q3H PRN IV pain>5 Last administered on 12/09at 08:05; Start 12/09/17 at 02:30; Stop 12/09/17 at 10:33; Status DC Trazodone HCl (Desyrel) 100 mg ONCE ONCE PO Last administered on 12/09/17at 03: 11; Start 12/09/17 at 03:00; Stop 12/09/17 at 03:02; Status DC Hydromorphone HCl (Dilaudid Pf Inj) 1 mg Q3H PRN IV PAIN SCALE 6 TO 10 Last administered on 12/11/17at 01:03; Start 12/09/17 at 11:00; Stop 12/11/17 at 06:53; Status DC Sodium Chloride 500 ml @ 30 mls/hr [id number] PRN IV SEE LABEL COMMENTS; Start 12/10/17 at 00:15; Stop 12/10/17 at 20:05; Status DC Bupivacaine HCl/ Epinephrine Bitart (Sensorcaine-Epinephrine Pf 0.5% Inj) 30 ml STK-MED ONCE .ROUTE ; Start 12/10/17 at 15:04; Stop 12/10/17 at 15:05; Status DC Acetaminophen 100 ml @ As Directed STK-MED ONCE IV ; Start 12/10/17 at 16:02; Stop 12/10/17 at 16:03; Status DC Metronidazole 100 ml @ As Directed STK-MED ONCE IV Last administered on at 16:34; Start 12/10/17 at 16:17; Stop 12/10/17 at 16:18; Status DC Cefazolin Sodium/ Dextrose 50 ml @ As Directed STK-MED ONCE .ROUTE Last administered on 12/10/17at 16:28; Start 12/10/17 at 16:17; Stop 12/10/17 at 16:18; Status DC Fentanyl Citrate (fentaNYL INJ) 100 mcg STK-MED ONCE .ROUTE ; Start 12/10/17 at 18:50; Stop 12/10/17 at 18:51; Status DC Cefazolin Sodium/ Dextrose 50 ml @ 100 mls/hr Q8H IV Last administered on at 07:39; Start 12/11/17 at 00:00 Metronidazole 100 ml @ 100 mls/hr Q8H IV Last administered on 12/13/17at 08:11; Start 12/11/17 at 00:00 Sugammadex Sodium (Bridion Inj) 200 mg STK-MED ONCE IV PUSH ; Start 12/10/17 at 19:40; Stop 12/10/17 at 19:41; Status DC Midazolam HCl (Versed Inj) 2 mg STK-MED ONCE .ROUTE ; Start 12/10/17 at 19:59; Stop 12/10/17 at 20:00; Status DC Fentanyl Citrate (fentaNYL INJ) 300 mcg STK-MED ONCE .ROUTE ; Start 12/10/17 at 20:00; Stop 12/10/17 at 20:01; Status DC Meperidine HCl (*DEMEROL INJ PERIprocedural ONLY) 25 mg STK-MED ONCE .ROUTE Last administered on 12/10/17at 20:04; Start 12/10/17 at 20:01; Stop 12/10/17 at 20: 02; Status DC Miscellaneous Information ([facility] ALL NURSING DEPARTME... UNSCH PRN .XX SEE LABEL COMMENTS; Start 12/10/17 at 20:15; Stop 12/11/17 at 20:14 ; Status DC Hydromorphone HCl (*DILAUDID PF INJ PERIprocedure ONLY) 0.5 mg STK-MED ONCE .ROUTE Last administered on 12/10/17at 20:13; Start 12/10/17 at 20:12; Stop at 20:13; Status DC Hydromorphone HCl (*DILAUDID PF INJ PERIprocedure ONLY) 0.5 mg STK-MED ONCE .ROUTE Last administered on 12/10/17 20:23; Start 12/10/17 at 20:21; Stop at 20:22; Status DC Hydromorphone HCl (*DILAUDID PF INJ PERIprocedure ONLY) 0.5 mg STK-MED ONCE .ROUTE Last administered on 12/10/17 20:33; Start 12/10/17 at 20:31; Stop at 20:32; Status DC Hydromorphone HCl (*DILAUDID PF INJ PERIprocedure ONLY) 0.5 mg STK-MED ONCE .ROUTE Last administered on 12/10/17 20:53; Start 12/10/17 at 20:51; Stop at 20:52; Status DC Hydromorphone HCl (*DILAUDID PF INJ PERIprocedure ONLY) 1 mg STK-MED ONCE .ROUTE ; Start 12/10/17 at 21:01; Stop 12/10/17 at 21:02; Status DC Hydromorphone HCl (Dilaudid Pf Inj) 1 mg NOW ONCE IV Last administered on at 21:05; Start 12/10/17 at 21:30; Stop 12/10/17 at 21:31; Status DC Hydromorphone HCl (Dilaudid Pf Inj) 1 mg ONCE ONCE IV ; Start 12/10/17 at 21:45 ; Stop 12/10/17 at 21:46; Status DC Albuterol/ Ipratropium (Duoneb Neb) 1 ampule Q4HR NEB PRN NEB SHORTNESS OF BREATH Last administered on 12/11/17 04:13; Start 12/11/17 at 04:00 Hydromorphone HCl (Dilaudid Pf Inj) 0.5 mg Q3H PRN IV PAIN SCALE 6 TO 10 Last administered on 12/13/17 13:38; Start 12/11/17 at 08:00 Acetaminophen 100 ml @ 400 mls/hr Q6H IV Last administered on 12/13/17 09:26; Start 12/11/17 at 10:00 Ketorolac Tromethamine (Toradol Inj) 30 mg Q6HR IV PUSH Last administered on 11:22; Start 12/11/17 at 12:00; Stop 12/16/17 at 11:59 Potassium Chloride (KCl) 30 meq ONCE ONCE PO Last administered on 12/11/17at 11: 47; Start 12/11/17 at 11:30; Stop 12/11/17 at 11:31; Status DC Ondansetron HCl (Zofran Odt) 4 mg Q6H PRN SL nausea Last administered on at 00:21; Start 12/12/17 at 01:15 Enoxaparin Sodium (Lovenox Inj) 40 mg Q24H SQ Last administered on 12/13/17at 07: 43; Start 12/12/17 at 10:00 Lidocaine HCl (Xylocaine-Mpf 1% Inj) 5 ml STK-MED ONCE OTHER ; Start 12/10/17 at 12:00; Stop 12/12/17 at 14:35; Status DC Rocuronium [place] (Zemuron Inj) 100 mg STK-MED ONCE IV PUSH ; Start 12/10/17 at 12:00; Stop 12/12/17 at 14:35; Status DC Neostigmine Methylsulfate (Prostigmine Inj) 5 mg STK-MED ONCE IV PUSH ; Start at 12:00; Stop 12/12/17 at 14:35; Status DC Glycopyrrolate (Robinul Inj) 1 mg STK-MED ONCE IV PUSH ; Start 12/10/17 at 12:00 ; Stop 12/12/17 at 14:35; Status DC Ephedrine Sulfate (ePHEDrine/NS 25 MG/5 ML SYR) 25 mg STK-MED ONCE IV ; Start at 12:00; Stop 12/12/17 at 14:35; Status DC Dexamethasone Sodium Phosphate (Decadron Inj) 4 mg STK-MED ONCE IV ; Start at 12:00; Stop 12/12/17 at 14:35; Status DC Ondansetron HCl (Zofran Inj) 4 mg STK-MED ONCE IV PUSH ; Start 12/10/17 at 12:00 ; Stop 12/12/17 at 14:35; Status DC Propofol (Diprivan 200 Mg/20 ml Inj) 400 mg STK-MED ONCE IV ; Start 12/10/17 at 12:00; Stop 12/12/17 at 14:35; Status DC Ondansetron HCl (Zofran Odt) 4 mg STK-MED ONCE PO ; Start 12/10/17 at 12:00; Stop 12/12/17 at 14:35; Status DC Lorazepam (Ativan Inj) 1 mg Q6H PRN IV PUSH ANXIETY Last administered on at 14:23; Start 12/13/17 at 10:00 A/P Problem List: (1) Small bowel obstruction ICD Code: K56.609 - Unspecified intestinal obstruction, unspecified as to partial versus complete obstruction (2) Hypothyroidism ICD Code: E03.9 - Hypothyroidism, unspecified Assessment and Plan 67 y/o female with a history of immunocompromise, 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 SBO Abdominal CT reviewed and shows Abnormal bowel gas pattern with multiple loops of borderline dilated small bowel with air-fluid levels as well as a transition zone in the anterior lower abdomen. The small bowel past this point is decompressed as is the colon. This is of concern for early or partial small bowel obstruction. There is mild inflammatory change and there is ascitic fluid in the pelvis. -IVF -Pain management with IV morphine 6/ persistent small bowel obstruction status post diagnostic lap reported to expiratory laparotomy with lysis of adhesions, small bowel resection. -Started on Ofirmev Toradol added by general surgery. Agree with management. -Start on clear liquid diet 6/ management as per general surgery. Continue clear liquid diet, encourage out of bed, Hope discontinued. Encourage out of bed. I S and ambulation. Hypothyroid, chronic -Continue Levothyroxine.. DVT prophylaxis: SCDs, Lovenox started as per general surgery recommendations. Discharge Planning Continue to monitor in the medical floor. Discharge Planning Pending clearance by surgery still not ready for discharge Marc Navarro DO Dec 13, 2017 14:48
[2017-12-13] MEDS ORDERED: POTASSIUM CHLOR 20 MEQ PREMIX 100 ML IV SCH (15:00)
[2017-12-13] MEDS ORDERED: POTASSIUM CHLORIDE 20 MEQ CONTROLLED RELEASE TAB PO ONE (15:15)
[2017-12-13 16:00] VITALS: BP 127/74; PULSE 72; RESP 18; TEMP 98.2; O2SAT 92
[2017-12-13 20:00] VITALS: BP 159/81; PULSE 75; RESP 16; TEMP 98; O2SAT 95
[2017-12-13] MEDS: traZODone HCL 100 MG TAB PO SCH (20:34)
[2017-12-13 21:08] VITALS: O2SAT 95
[2017-12-14] VITALS (7 sets, daily range): BP systolic 122–176; BP diastolic 59–85; PULSE 65–76; RESP 18; TEMP 97.8–98.7; O2SAT 92–99
[2017-12-14] MEDS: metroNIDAZOLE 500 MG INJ 100 ML IV SCH ×3 (00:07→16:17)
[2017-12-14] MEDS: ceFAZolin 2 GM PREMIX 50 ML IV SCH ×3 (00:07→17:31)
[2017-12-14] MEDS: KETOROLAC TROMETHAMINE 30 MG/ML (IVP) VIAL IV PUSH SCH ×4 (00:08→17:31)
[2017-12-14] MEDS: ONDANSETRON ODT 4 MG TAB SL PRN ×2 (01:24→16:13)
[2017-12-14] MEDS: RESP: ALBUTEROL 2.5 MG/IPRATROPIUM 0.5 MG NEB (PRN) NEB ×2 (03:31→09:07)
[2017-12-14] MEDS: LEVOTHYROXINE SODIUM 112 MCG TAB PO SCH (05:06)
[2017-12-14] MEDS: ACETAMINOPHEN 1000 MG/100 ML 100 ML IV SCH ×4 (05:08→20:22)
[2017-12-14] MEDS: SODIUM CHLOR 0.9% 1000 ML INJ 1,000 ML IV SCH ×3 (05:12→20:25)
[2017-12-14] MEDS: ESTRADIOL 1 MG TAB PO SCH (08:06)
[2017-12-14] MEDS: LORATADINE 10 MG TAB PO SCH (08:07)
[2017-12-14] MEDS: SODIUM CHLORIDE 0.9% FLUSH 10 ML FLUSH IV FLUSH SCH ×2 (08:16→20:25)
[2017-12-14 08:47] LABS: AUTOMATED NEUTROPHIL # 5.2 TH/MM3 (1.8-7.7); BASOPHIL % 0.2 % (0.0-2.0); EOSINOPHIL # 0.1 TH/MM3 (0-0.4); EOSINOPHIL % 0.8 % (0.0-4.0); HEMATOCRIT 34.3 % (35.0-46.0); HEMOGLOBIN 11.5 GM/DL (11.6-15.3); LYMPH % 27.1 % (9.0-44.0); LYMPHOCYTE # 2.2 TH/MM3 (1.0-4.8); MEAN CELL VOLUME 87.5 FL (80.0-100.0); MEAN CORPUSCULAR HEMOGLOBIN 29.3 PG (27.0-34.0); MEAN CORPUSCULAR HGB CONC 33.5 % (32.0-36.0); MEAN PLATELET VOLUME 9.5 FL (7.0-11.0); MONO % 7.8 % (0.0-8.0); MONOCYTE # 0.6 TH/MM3 (0-0.9); NEUT % 64.1 % (16.0-70.0); PLATELET COUNT 236 TH/MM3 (150-450); RED BLOOD COUNT 3.92 MIL/MM3 (4.00-5.30); RED CELL DISTRIBUTION WIDTH 13.9 % (11.6-17.2); WHITE BLOOD COUNT 8.2 TH/MM3 (4.0-11.0)
[2017-12-14 09:19] LABS: ALBUMIN 2.1 GM/DL (3.4-5.0); ALKALINE PHOSPHATASE 53 U/L (45-117); ALT (GPT) 11 U/L (10-53); AST (GOT) 13 U/L (15-37); BICARBONATE 21.3 MEQ/L (21.0-32.0); BLOOD UREA NITROGEN 7 MG/DL (7-18); CHLORIDE 110 MEQ/L (98-107); CREATININE 0.48 MG/DL (0.50-1.00); FREE T4 1.29 NG/DL (0.76-1.46); GLOMERULAR FILTRATION RATE 129 ML/MIN (>89); GLUCOSE,RANDOM 80 MG/DL (74-106); PHOSPHORUS 1.1 MG/DL (2.5-4.9); SODIUM (NA) 143 MEQ/L (136-145); TOTAL BILIRUBIN ADULT 0.3 MG/DL (0.2-1.0); TOTAL PROTEIN 5.2 GM/DL (6.4-8.2)
[2017-12-14] MEDS: ENOXAPARIN SODIUM 40 MG/0.4 ML SYRINGE SQ SCH (10:12)
[2017-12-14] MEDS: LORazepam 2 MG/ML VIAL IV PUSH PRN (10:20)
--- NOTE | 2017-12-14 11:37 | HHI.PR ---
Subjective Subjective Notes Resting in bed "I cannot have anything with MSG in it. It causes me to be nauseous." Objective Vitals/I&O Vital Signs Date Time Temp Pulse Resp B/P (MAP) Pulse Ox O2 Delivery O2 Flow Rate FiO2 12/14/17 09:10 99 Nasal Cannula 2.00 12/14/17 08:00 97.8 76 18 176/76 (109) 12/12/17 10:50 21 Labs Laboratory Tests Test 12/14/17 07:00 White Blood Count 8.2 Red Blood Count 3.92 Hemoglobin 11.5 Hematocrit 34.3 Mean Corpuscular Volume 87.5 Mean Corpuscular Hemoglobin 29.3 Mean Corpuscular Hemoglobin Concent 33.5 Red Cell Distribution Width 13.9 Platelet Count 236 Mean Platelet Volume 9.5 Neutrophils (%) (Auto) 64.1 Lymphocytes (%) (Auto) 27.1 Monocytes (%) (Auto) 7.8 Eosinophils (%) (Auto) 0.8 Basophils (%) (Auto) 0.2 Neutrophils # (Auto) 5.2 Lymphocytes # (Auto) 2.2 Monocytes # (Auto) 0.6 Eosinophils # (Auto) 0.1 Basophils # (Auto) 0.0 CBC Comment DIFF FINAL Differential Comment Blood Urea Nitrogen 7 Creatinine 0.48 Random Glucose 80 Total Protein 5.2 Albumin 2.1 Calcium Level 7.0 Phosphorus Level 1.1 Magnesium Level 2.0 Alkaline Phosphatase 53 Aspartate Amino Transf (AST/SGOT) 13 Alanine Aminotransferase (ALT/SGPT) 11 Total Bilirubin 0.3 Sodium Level 143 Potassium Level 3.5 Chloride Level 110 Carbon Dioxide Level 21.3 Anion Gap 12 Estimat Glomerular Filtration Rate 129 Protein Corrected Calcium 8.0 Free Thyroxine 1.29 Thyroid Stimulating Hormone 3rd Gen 0.340 Cardiovascular: Regular Lungs: Clear Abdomen: Other (RENEE in place; lap sites c/d/i; soft; mildly distended ) Extremities: Other (mild peripheral edema ) A/P Assessment and Plan 67 year old female POD3 dx lap converted to ex lap for SBO -Continue clear liquids -OOB as tolerated -Lovenox -IS -KUB from yesterday shows mild post op ileus Attending Statement kub mild ileus patient seen at bedside consider CT if no improvement in a few days continue liquids Attestation The exam, history, and the medical decision-making described in the above note were completed with the assistance of the mid-level provider. I reviewed and agree with the findings presented. I attest that I had a [id number] encounter with the patient on the same day, and personally performed and documented my assessment and findings in the medical record. Radha Childers. PELON/[employer] ARNP Dec 14, 2017 11:37 Yuan Perez MD Dec 18, 2017 22:55
--- NOTE | 2017-12-14 11:48 | HHI.PR ---
Subjective Remarks 6-6Poor oral intake still not eating much Physical therapy and Occupational Therapy A.m. labs 6-7 STILL NOT EATING MUCH OUT OF CONCERN OF PRESERVATIVES AND MSG IN FOODS DW RN AND PT AND CM ACCESS PORT PT AND OT AM LABS INCREASE DIET Objective Vitals Vital Signs Date Time Temp Pulse Resp B/P (MAP) Pulse Ox O2 Delivery O2 Flow Rate FiO2 12/14/17 09:10 99 Nasal Cannula 2.00 12/14/17 08:00 97.8 76 18 176/76 (109) 93 12/14/17 03:34 94 12/14/17 00:00 98.0 69 18 164/74 (104) 96 12/13/17 21:08 95 Nasal Cannula 2.00 12/13/17 20:00 98.0 75 16 159/81 (107) 95 12/13/17 16:00 98.2 72 18 127/74 (91) 92 12/13/17 12:00 97.9 67 16 124/56 (78) 93 I/O 12/13/17 12/13/17 12/13/17 12/14/17 12/14/17 12/14/17 07:00 15:00 23:00 07:00 15:00 23:00 Intake Total 480 ml 250 ml 240 ml 1470 ml Balance 480 ml 250 ml 240 ml 1470 ml Intake Oral 480 ml 240 ml 120 ml IV Total 250 ml 1350 ml Bladder Scan Volume Amount 150 ml # Voids 1 2 # Bowel Movements 5 4 Result Diagram: 12/14/17 0700 12/14/17 0700 Other Results Laboratory Tests Test 12/12/17 11:26 12/13/17 06:10 12/13/17 07:15 12/14/17 07:00 White Blood Count 13.3 TH/MM3 11.6 TH/MM3 8.2 TH/MM3 Red Blood Count 4.34 MIL/MM3 4.27 MIL/MM3 3.92 MIL/MM3 Hemoglobin 12.5 GM/DL 12.4 GM/DL 11.5 GM/DL Hematocrit 38.3 % 37.2 % 34.3 % Mean Corpuscular Volume 88.2 FL 87.0 FL 87.5 FL Mean Corpuscular Hemoglobin 28.7 PG 28.9 PG 29.3 PG Mean Corpuscular Hemoglobin Concent 32.6 % 33.3 % 33.5 % Red Cell Distribution Width 14.2 % 14.0 % 13.9 % Platelet Count 190 TH/MM3 210 TH/MM3 236 TH/MM3 Mean Platelet Volume 9.3 FL 9.6 FL 9.5 FL Prothrombin Time 13.5 SEC Prothromb Time International Ratio 1.3 RATIO Blood Urea Nitrogen 10 MG/DL 8 MG/DL 7 MG/DL Creatinine 0.69 MG/DL 0.54 MG/DL 0.48 MG/DL Random Glucose 118 MG/DL 87 MG/DL 80 MG/DL Calcium Level 7.5 MG/DL 7.3 MG/DL 7.0 MG/DL Magnesium Level 2.0 MG/DL 2.0 MG/DL 2.0 MG/DL Sodium Level 142 MEQ/L 142 MEQ/L 143 MEQ/L Potassium Level 3.5 MEQ/L 3.1 MEQ/L 3.5 MEQ/L Chloride Level 107 MEQ/L 109 MEQ/L 110 MEQ/L Carbon Dioxide Level 25.0 MEQ/L 22.8 MEQ/L 21.3 MEQ/L Anion Gap 10 MEQ/L 10 MEQ/L 12 MEQ/L Estimat Glomerular Filtration Rate 85 ML/MIN 113 ML/MIN 129 ML/MIN Total Protein 5.5 GM/DL 5.2 GM/DL Phosphorus Level 0.9 MG/DL 1.1 MG/DL Protein Corrected Calcium 8.2 MG/DL 8.0 MG/DL Urine Color YELLOW Urine Turbidity CLEAR Urine pH 6.0 Urine Specific [place] 1.033 Urine Protein 30 mg/dL Urine Glucose (UA) NEG mg/dL Urine Ketones 150 mg/dL Urine Occult Blood NEG Urine Nitrite NEG Urine Bilirubin NEG Urine Urobilinogen LESS THAN 2.0 MG/DL Urine Leukocyte Esterase TRACE Urine RBC 2 /hpf Urine WBC 5 /hpf Urine Squamous Epithelial Cells <1 /hpf Urine Bacteria RARE /hpf Urine Hyaline Casts 5 /lpf Urine Mucus FEW /lpf Microscopic Urinalysis Comment CULT NOT INDICATED Neutrophils (%) (Auto) 64.1 % Lymphocytes (%) (Auto) 27.1 % Monocytes (%) (Auto) 7.8 % Eosinophils (%) (Auto) 0.8 % Basophils (%) (Auto) 0.2 % Neutrophils # (Auto) 5.2 TH/MM3 Lymphocytes # (Auto) 2.2 TH/MM3 Monocytes # (Auto) 0.6 TH/MM3 Eosinophils # (Auto) 0.1 TH/MM3 Basophils # (Auto) 0.0 TH/MM3 CBC Comment DIFF FINAL Differential Comment Albumin 2.1 GM/DL Alkaline Phosphatase 53 U/L Aspartate Amino Transf (AST/SGOT) 13 U/L Alanine Aminotransferase (ALT/SGPT) 11 U/L Total Bilirubin 0.3 MG/DL Free Thyroxine 1.29 NG/DL Thyroid Stimulating Hormone 3rd Gen 0.340 uIU/ML Imaging Last Impressions Abdomen X-Ray 12/13/17 1000 Signed Impressions: CONCLUSION: Probable mild postop ileus. Head CT 12/11/17 0000 Signed Impressions: CONCLUSION: 1. No acute intracranial hemorrhage. 2. Chronic bilateral white matter changes. Chest X-Ray 12/08/17 1621 Signed Impressions: CONCLUSION: No acute cardiopulmonary disease. Abdomen/Pelvis CT 12/08/17 0000 Signed Impressions: CONCLUSION: 1. Abnormal bowel gas pattern with multiple loops of borderline dilated small bowel with air-fluid levels as well as a transition zone in the anterior lower abdomen. The small bowel past this point is decompressed as is the colon. This is of concern for early or partial small bowel obstruction. There is mild infla mmatory change and there is ascitic fluid in the pelvis. 2. 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 3. Hepatic steatosis with subtle low-attenuation lesion right lobe of the live r which is nonspecific. 4. Small hiatal hernia. Objective Remarks GENERAL: Awake alert and oriented 3 distended talkative and cooperative SKIN: Warm and dry. HEAD: Atraumatic. Normocephalic. EYES: Pupils equal and round. No scleral icterus. No injection or drainage. ENT: No nasal bleeding or discharge. Mucous membranes pink and moist. NECK: Trachea midline. No JVD. CARDIOVASCULAR: Regular rate and rhythm. RESPIRATORY: No accessory muscle use. Clear to auscultation. Breath sounds equal bilaterally. GASTROINTESTINAL: Abdomen soft, non-tender, nondistended. Hepatic and splenic margins not palpable. Obese distended MUSCULOSKELETAL: Extremities without clubbing, cyanosis, or edema. No obvious deformities. NEUROLOGICAL: Awake and alert. No obvious cranial nerve deficits. Motor grossly within normal limits. Five out of 5 muscle strength in the arms and legs. Normal speech. PSYCHIATRIC: Appropriate mood and affect; insight and judgment normal. Procedures 12/10/2017 PREOPERATIVE DIAGNOSIS: Small bowel obstruction, adhesions. 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 SURGEON: Yuan Perez MD DIRECTOR OF HOUSING AND ENERGY SERVICES: [facility] PROCEDURE PERFORMED: 1. Diagnostic laparoscopy. 2. Laparoscopic converted to open abdominal, lysis of adhesions, greater than 60 minutes. 3. Small bowel resection x 2. Medications and IVs Current Medications Sodium Chloride (NS Flush) 2 ml UNSCH PRN IVF FLUSH AFTER USING IV ACCESS Last administered on 12/08/17at 19:48; Start 12/08/17 at 16:30; Stop 12/09/17 at 03:03; Status DC Sodium Chloride 500 ml @ 500 mls/hr ONCE ONCE IV Last administered on at 16:52; Start 12/08/17 at 16:30; Stop 12/08/17 at 17:29; Status DC Promethazine HCl (Phenergan Inj) 25 mg ONCE ONCE IM Last administered on at 16:52; Start 12/08/17 at 16:30; Stop 12/08/17 at 16:31; Status DC Lorazepam (Ativan Inj) 1 mg ONCE ONCE IV PUSH Last administered on 12/08/17at 17 :49; Start 12/08/17 at 17:45; Stop 12/08/17 at 17:46; Status DC Iohexol (Omnipaque 350 Inj) 90 ml STK-MED ONCE IVCONTRAST Last administered on 12/08/17at 18:11; Start 12/08/17 at 18:11; Stop 12/08/17 at 18:12; Status DC Ketorolac Tromethamine (Toradol Inj) 30 mg ONCE ONCE IV PUSH Last administered on 12/08/17at 19:48; Start 12/08/17 at 19:45; Stop 12/08/17 at 19:46; Status DC Sodium Chloride 1,000 ml @ 100 mls/hr Q10H IV Last administered on 12/14/17at 05 :12; Start 12/08/17 at 20:12 Sodium Chloride (NS Flush) 2 ml UNSCH PRN IV FLUSH FLUSH AFTER USING IV ACCESS ; Start 12/08/17 at 20:15 Sodium Chloride (NS Flush) 2 ml BID IV FLUSH Last administered on 12/13/17at 20: 40; Start 12/08/17 at 21:00 Naloxone HCl (Narcan Inj) 0.4 mg UNSCH PRN IV PUSH SEE LABEL COMMENTS Last administered on 12/11/17at 04:04; Start 12/08/17 at 20:15 Metoclopramide HCl (Reglan Inj) 5 mg Q8H PRN IV PUSH nausea Last administered on 12/13/17at 20:34; Start 12/08/17 at 20:15 Estradiol (Estradiol) 0.5 mg DAILY PO Last administered on 12/14/17at 08:06; Start 12/09/17 at 09:00 Levothyroxine Sodium (Synthroid) 112 mcg DAILY@0600 PO Last administered on 12/14 05:06; Start 12/09/17 at 06:00 Loratadine (Claritin) 10 mg DAILY PO Last administered on 12/14/17at 08:07; Start 12/09/17 at 09:00 Non-Formulary Medication 25 mg DAILY PO ; Start 12/09/17 at 09:00; Status UNV Trazodone HCl (Desyrel) 100 mg HS PO Last administered on 12/13/17at 20:34; Start 12/09/17 at 21:00 Morphine Sulfate (Morphine Inj) 2 mg Q3H PRN IV pain>5 Last administered on 12/09at 08:05; Start 12/09/17 at 02:30; Stop 12/09/17 at 10:33; Status DC Trazodone HCl (Desyrel) 100 mg ONCE ONCE PO Last administered on 12/09/17at 03: 11; Start 12/09/17 at 03:00; Stop 12/09/17 at 03:02; Status DC Hydromorphone HCl (Dilaudid Pf Inj) 1 mg Q3H PRN IV PAIN SCALE 6 TO 10 Last administered on 12/11/17at 01:03; Start 12/09/17 at 11:00; Stop 12/11/17 at 06:53; Status DC Sodium Chloride 500 ml @ 30 mls/hr [id number] PRN IV SEE LABEL COMMENTS; Start 12/10/17 at 00:15; Stop 12/10/17 at 20:05; Status DC Bupivacaine HCl/ Epinephrine Bitart (Sensorcaine-Epinephrine Pf 0.5% Inj) 30 ml STK-MED ONCE .ROUTE ; Start 12/10/17 at 15:04; Stop 12/10/17 at 15:05; Status DC Acetaminophen 100 ml @ As Directed STK-MED ONCE IV ; Start 12/10/17 at 16:02; Stop 12/10/17 at 16:03; Status DC Metronidazole 100 ml @ As Directed STK-MED ONCE IV Last administered on at 16:34; Start 12/10/17 at 16:17; Stop 12/10/17 at 16:18; Status DC Cefazolin Sodium/ Dextrose 50 ml @ As Directed STK-MED ONCE .ROUTE Last administered on 12/10/17at 16:28; Start 12/10/17 at 16:17; Stop 12/10/17 at 16:18; Status DC Fentanyl Citrate (fentaNYL INJ) 100 mcg STK-MED ONCE .ROUTE ; Start 12/10/17 at 18:50; Stop 12/10/17 at 18:51; Status DC Cefazolin Sodium/ Dextrose 50 ml @ 100 mls/hr Q8H IV Last administered on at 09:14; Start 12/11/17 at 00:00 Metronidazole 100 ml @ 100 mls/hr Q8H IV Last administered on 12/14/17at 08:07; Start 12/11/17 at 00:00 Sugammadex Sodium (Bridion Inj) 200 mg STK-MED ONCE IV PUSH ; Start 12/10/17 at 19:40; Stop 12/10/17 at 19:41; Status DC Midazolam HCl (Versed Inj) 2 mg STK-MED ONCE .ROUTE ; Start 12/10/17 at 19:59; Stop 12/10/17 at 20:00; Status DC Fentanyl Citrate (fentaNYL INJ) 300 mcg STK-MED ONCE .ROUTE ; Start 12/10/17 at 20:00; Stop 12/10/17 at 20:01; Status DC Meperidine HCl (*DEMEROL INJ PERIprocedural ONLY) 25 mg STK-MED ONCE .ROUTE Last administered on 12/10/17at 20:04; Start 12/10/17 at 20:01; Stop 12/10/17 at 20: 02; Status DC Miscellaneous Information ([facility] Information) ALL NURSING DEPARTME... UNSCH PRN .XX SEE LABEL COMMENTS; Start 12/10/17 at 20:15; Stop 12/11/17 at 20:14 ; Status DC Hydromorphone HCl (*DILAUDID PF INJ PERIprocedure ONLY) 0.5 mg STK-MED ONCE .ROUTE Last administered on 12/10/17at 20:13; Start 12/10/17 at 20:12; Stop at 20:13; Status DC Hydromorphone HCl (*DILAUDID PF INJ PERIprocedure ONLY) 0.5 mg STK-MED ONCE .ROUTE Last administered on 12/10/17 20:23; Start 12/10/17 at 20:21; Stop at 20:22; Status DC Hydromorphone HCl (*DILAUDID PF INJ PERIprocedure ONLY) 0.5 mg STK-MED ONCE .ROUTE Last administered on 12/10/17at 20:33; Start 12/10/17 at 20:31; Stop at 20:32; Status DC Hydromorphone HCl (*DILAUDID PF INJ PERIprocedure ONLY) 0.5 mg STK-MED ONCE .ROUTE Last administered on 12/10/17at 20:53; Start 12/10/17 at 20:51; Stop at 20:52; Status DC Hydromorphone HCl (*DILAUDID PF INJ PERIprocedure ONLY) 1 mg STK-MED ONCE .ROUTE ; Start 12/10/17 at 21:01; Stop 12/10/17 at 21:02; Status DC Hydromorphone HCl (Dilaudid Pf Inj) 1 mg NOW ONCE IV Last administered on at 21:05; Start 12/10/17 at 21:30; Stop 12/10/17 at 21:31; Status DC Hydromorphone HCl (Dilaudid Pf Inj) 1 mg ONCE ONCE IV ; Start 12/10/17 at 21:45 ; Stop 12/10/17 at 21:46; Status DC Albuterol/ Ipratropium (Duoneb Neb) 1 ampule Q4HR NEB PRN NEB SHORTNESS OF BREATH Last administered on 12/14/17at 09:07; Start 12/11/17 at 04:00 Hydromorphone HCl (Dilaudid Pf Inj) 0.5 mg Q3H PRN IV PAIN SCALE 6 TO 10 Last administered on 12/13/17at 13:38; Start 12/11/17 at 08:00 Acetaminophen 100 ml @ 400 mls/hr Q6H IV Last administered on 12/14/17at 10:11; Start 12/11/17 at 10:00 Ketorolac Tromethamine (Toradol Inj) 30 mg Q6HR IV PUSH Last administered on 12/14/17at 05:08; Start 12/11/17 at 12:00; Stop 12/16/17 at 11:59 Potassium Chloride (KCl) 30 meq ONCE ONCE PO Last administered on 12/11/17at 11: 47; Start 12/11/17 at 11:30; Stop 12/11/17 at 11:31; Status DC Ondansetron HCl (Zofran Odt) 4 mg Q6H PRN SL nausea Last administered on at 01:24; Start 12/12/17 at 01:15 Enoxaparin Sodium (Lovenox Inj) 40 mg Q24H SQ Last administered on 12/14/17at 10: 12; Start 12/12/17 at 10:00 Lidocaine HCl (Xylocaine-Mpf 1% Inj) 5 ml STK-MED ONCE OTHER ; Start 12/10/17 at 12:00; Stop 12/12/17 at 14:35; Status DC Rocuronium [place] (Zemuron Inj) 100 mg STK-MED ONCE IV PUSH ; Start 12/10/17 at 12:00; Stop 12/12/17 at 14:35; Status DC Neostigmine Methylsulfate (Prostigmine Inj) 5 mg STK-MED ONCE IV PUSH ; Start at 12:00; Stop 12/12/17 at 14:35; Status DC Glycopyrrolate (Robinul Inj) 1 mg STK-MED ONCE IV PUSH ; Start 12/10/17 at 12:00 ; Stop 12/12/17 at 14:35; Status DC Ephedrine Sulfate (ePHEDrine/NS 25 MG/5 ML SYR) 25 mg STK-MED ONCE IV ; Start at 12:00; Stop 12/12/17 at 14:35; Status DC Dexamethasone Sodium Phosphate (Decadron Inj) 4 mg STK-MED ONCE IV ; Start at 12:00; Stop 12/12/17 at 14:35; Status DC Ondansetron HCl (Zofran Inj) 4 mg STK-MED ONCE IV PUSH ; Start 12/10/17 at 12:00 ; Stop 12/12/17 at 14:35; Status DC Propofol (Diprivan 200 Mg/20 ml Inj) 400 mg STK-MED ONCE IV ; Start 12/10/17 at 12:00; Stop 12/12/17 at 14:35; Status DC Ondansetron HCl (Zofran Odt) 4 mg STK-MED ONCE PO ; Start 12/10/17 at 12:00; Stop 12/12/17 at 14:35; Status DC Lorazepam (Ativan Inj) 1 mg Q6H PRN IV PUSH ANXIETY Last administered on at 10:20; Start 12/13/17 at 10:00 Potassium Chloride 100 ml @ 50 mls/hr Q2H IV ; Start 12/13/17 at 15:00; Stop 12/13/17 at 15:04; Status DC Potassium Chloride (KCl) 80 meq ONCE ONCE PO Last administered on 12/13/17at 15: 27; Start 12/13/17 at 15:15; Stop 12/13/17 at 15:16; Status DC A/P Problem List: (1) Small bowel obstruction ICD Code: K56.609 - Unspecified intestinal obstruction, unspecified as to partial versus complete obstruction (2) Hypothyroidism ICD Code: E03.9 - Hypothyroidism, unspecified Assessment and Plan 67 y/o female with a history of immunocompromise, 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 SBO Abdominal CT reviewed and shows Abnormal bowel gas pattern with multiple loops of borderline dilated small bowel with air-fluid levels as well as a transition zone in the anterior lower abdomen. The small bowel past this point is decompressed as is the colon. This is of concern for early or partial small bowel obstruction. There is mild inflammatory change and there is ascitic fluid in the pelvis. -IVF -Pain management with IV morphine 12/11 persistent small bowel obstruction status post diagnostic lap reported to expiratory laparotomy with lysis of adhesions, small bowel resection. -Started on Ofirmev Toradol added by general surgery. Agree with management. -Start on clear liquid diet 6/5 management as per general surgery. Continue clear liquid diet, encourage out of bed, Hope discontinued. Encourage out of bed. I S and ambulation. MULTIPLE FOOD TYPE ALLERGIES Hypothyroid, chronic -Continue Levothyroxine.. DVT prophylaxis: SCDs, Lovenox started as per general surgery recommendations. Discharge Planning Continue to monitor in the medical floor. Discharge Planning Pending clearance by surgery still not ready for discharge Marc Navarro DO Dec 14, 2017 11:48
[2017-12-14 17:15] LABS: HEMOGLOBIN A1C 5.6 % (4.3-6.0)
[2017-12-14] MEDS: traZODone HCL 100 MG TAB PO SCH (20:20)
[2017-12-14] MEDS: METOCLOPRAMIDE HCL 10 MG/2 ML VIAL IV PUSH PRN (20:20)
[2017-12-15] VITALS (8 sets, daily range): BP systolic 132–185; BP diastolic 69–87; PULSE 59–82; RESP 18–20; TEMP 86–98.6; O2SAT 95–98
[2017-12-15] MEDS: ONDANSETRON ODT 4 MG TAB SL PRN ×4 (00:12→23:21)
[2017-12-15] MEDS: KETOROLAC TROMETHAMINE 30 MG/ML (IVP) VIAL IV PUSH SCH ×5 (00:15→23:14)
[2017-12-15] MEDS: ceFAZolin 2 GM PREMIX 50 ML IV SCH ×4 (00:16→23:15)
[2017-12-15] MEDS: metroNIDAZOLE 500 MG INJ 100 ML IV SCH ×4 (00:16→23:14)
[2017-12-15] MEDS: LORazepam 2 MG/ML VIAL IV PUSH PRN ×2 (00:22→23:19)
[2017-12-15] MEDS: LEVOTHYROXINE SODIUM 112 MCG TAB PO SCH (04:41)
[2017-12-15] MEDS: ACETAMINOPHEN 1000 MG/100 ML 100 ML IV SCH ×4 (04:42→21:04)
[2017-12-15] MEDS: ESTRADIOL 1 MG TAB PO SCH (08:51)
[2017-12-15] MEDS: LORATADINE 10 MG TAB PO SCH (08:51)
[2017-12-15] MEDS: SODIUM CHLORIDE 0.9% FLUSH 10 ML FLUSH IV FLUSH SCH ×2 (08:52→21:14)
[2017-12-15] MEDS ORDERED: DIATRIZOATE MEGLUM/DIATRIZOATE SOD 9 ML CUP PO ONE (09:15)
[2017-12-15] MEDS: RESP: ALBUTEROL 2.5 MG/IPRATROPIUM 0.5 MG NEB (PRN) NEB ×2 (09:16→22:06)
[2017-12-15] MEDS: ENOXAPARIN SODIUM 40 MG/0.4 ML SYRINGE SQ SCH (11:03)
[2017-12-15 11:16] LABS: AUTOMATED NEUTROPHIL # 6.5 TH/MM3 (1.8-7.7); BASOPHIL % 0.4 % (0.0-2.0); EOSINOPHIL # 0.1 TH/MM3 (0-0.4); HEMATOCRIT 36.7 % (35.0-46.0); HEMOGLOBIN 12.4 GM/DL (11.6-15.3); LYMPH % 23.4 % (9.0-44.0); LYMPHOCYTE # 2.3 TH/MM3 (1.0-4.8); MEAN CELL VOLUME 85.5 FL (80.0-100.0); MEAN CORPUSCULAR HEMOGLOBIN 28.8 PG (27.0-34.0); MEAN CORPUSCULAR HGB CONC 33.7 % (32.0-36.0); MEAN PLATELET VOLUME 9.3 FL (7.0-11.0); MONO % 8.4 % (0.0-8.0); MONOCYTE # 0.8 TH/MM3 (0-0.9); NEUT % 66.8 % (16.0-70.0); PLATELET COUNT 275 TH/MM3 (150-450); RED BLOOD COUNT 4.29 MIL/MM3 (4.00-5.30); RED CELL DISTRIBUTION WIDTH 13.9 % (11.6-17.2); WHITE BLOOD COUNT 9.8 TH/MM3 (4.0-11.0)
[2017-12-15] MEDS ORDERED: ONDANSETRON ODT 4 MG TAB PO ONE (11:30)
[2017-12-15 11:40] LABS: ALBUMIN 2.6 GM/DL (3.4-5.0); ALKALINE PHOSPHATASE 67 U/L (45-117); ALT (GPT) 21 U/L (10-53); AST (GOT) 57 U/L (15-37); BICARBONATE 22.6 MEQ/L (21.0-32.0); BLOOD UREA NITROGEN 4 MG/DL (7-18); CHLORIDE 105 MEQ/L (98-107); CREATININE 0.52 MG/DL (0.50-1.00); GLOMERULAR FILTRATION RATE 118 ML/MIN (>89); GLUCOSE,RANDOM 100 MG/DL (74-106); MAGNESIUM 1.9 MG/DL (1.5-2.5); PHOSPHORUS 0.9 MG/DL (2.5-4.9); SODIUM (NA) 142 MEQ/L (136-145); TOTAL BILIRUBIN ADULT 0.3 MG/DL (0.2-1.0); TOTAL PROTEIN 6.1 GM/DL (6.4-8.2)
[2017-12-15] MEDS: POTASSIUM CHLOR 20 MEQ PREMIX 100 ML IV SCH ×4 (12:31→23:15)
[2017-12-15] MEDS: SODIUM CHLOR 0.9% 1000 ML INJ 1,000 ML IV SCH ×2 (12:31→21:14)
--- NOTE | 2017-12-15 13:51 | HHI.PR ---
Subjective Remarks 6-6Poor oral intake still not eating much Physical therapy and Occupational Therapy A.m. labs 6-7 STILL NOT EATING MUCH OUT OF CONCERN OF PRESERVATIVES AND MSG IN FOODS DW RN AND PT AND CM ACCESS PORT PT AND OT AM LABS INCREASE DIET 6-8 TO HAVE CAT SCAN OF ABDOMEN TODAY REPLACE POTASSIUM THAT IS LOW NOT CLEARED BY SURGERY FOR DISCHARGE AM LABS NOT TRYING TO DO ADLS Objective Vitals Vital Signs Date Time Temp Pulse Resp B/P (MAP) Pulse Ox O2 Delivery O2 Flow Rate FiO2 12/15/17 12:00 98.0 82 19 157/69 (98) 96 12/15/17 09:18 98 Nasal Cannula 2.00 12/15/17 08:00 98.0 59 18 132/73 (92) 97 12/15/17 08:00 98.0 59 18 132/73 (92) 97 12/15/17 04:00 98.2 68 18 185/87 (119) 95 12/15/17 00:00 98.6 69 18 181/77 (111) 95 12/14/17 20:00 98.1 68 18 153/70 (97) 92 12/14/17 16:00 98.7 69 18 156/85 (108) 96 I/O 12/14/17 12/14/17 12/14/17 12/15/17 12/15/17 12/15/17 07:00 15:00 23:00 07:00 15:00 23:00 Intake Total 1470 ml 480 ml Output Total 350 ml Balance 1470 ml 130 ml Intake Oral 120 ml 480 ml IV Total 1350 ml Output Urine Total 350 ml # Voids 2 # Bowel Movements 4 9 Result Diagram: 12/15/17 1045 12/15/17 1045 Other Results Laboratory Tests Test 12/13/17 06:10 12/13/17 07:15 12/14/17 07:00 12/15/17 10:45 White Blood Count 11.6 TH/MM3 8.2 TH/MM3 9.8 TH/MM3 Red Blood Count 4.27 MIL/MM3 3.92 MIL/MM3 4.29 MIL/MM3 Hemoglobin 12.4 GM/DL 11.5 GM/DL 12.4 GM/DL Hematocrit 37.2 % 34.3 % 36.7 % Mean Corpuscular Volume 87.0 FL 87.5 FL 85.5 FL Mean Corpuscular Hemoglobin 28.9 PG 29.3 PG 28.8 PG Mean Corpuscular Hemoglobin Concent 33.3 % 33.5 % 33.7 % Red Cell Distribution Width 14.0 % 13.9 % 13.9 % Platelet Count 210 TH/MM3 236 TH/MM3 275 TH/MM3 Mean Platelet Volume 9.6 FL 9.5 FL 9.3 FL Blood Urea Nitrogen 8 MG/DL 7 MG/DL 4 MG/DL Creatinine 0.54 MG/DL 0.48 MG/DL 0.52 MG/DL Random Glucose 87 MG/DL 80 MG/DL 100 MG/DL Total Protein 5.5 GM/DL 5.2 GM/DL 6.1 GM/DL Calcium Level 7.3 MG/DL 7.0 MG/DL 8.0 MG/DL Phosphorus Level 0.9 MG/DL 1.1 MG/DL 0.9 MG/DL Magnesium Level 2.0 MG/DL 2.0 MG/DL 1.9 MG/DL Sodium Level 142 MEQ/L 143 MEQ/L 142 MEQ/L Potassium Level 3.1 MEQ/L 3.5 MEQ/L 2.7 MEQ/L Chloride Level 109 MEQ/L 110 MEQ/L 105 MEQ/L Carbon Dioxide Level 22.8 MEQ/L 21.3 MEQ/L 22.6 MEQ/L Anion Gap 10 MEQ/L 12 MEQ/L 14 MEQ/L Estimat Glomerular Filtration Rate 113 ML/MIN 129 ML/MIN 118 ML/MIN Protein Corrected Calcium 8.2 MG/DL 8.0 MG/DL Urine Color YELLOW Urine Turbidity CLEAR Urine pH 6.0 Urine Specific [place] 1.033 Urine Protein 30 mg/dL Urine Glucose (UA) NEG mg/dL Urine Ketones 150 mg/dL Urine Occult Blood NEG Urine Nitrite NEG Urine Bilirubin NEG Urine Urobilinogen LESS THAN 2.0 MG/DL Urine Leukocyte Esterase TRACE Urine RBC 2 /hpf Urine WBC 5 /hpf Urine Squamous Epithelial Cells <1 /hpf Urine Bacteria RARE /hpf Urine Hyaline Casts 5 /lpf Urine Mucus FEW /lpf Microscopic Urinalysis Comment CULT NOT INDICATED Neutrophils (%) (Auto) 64.1 % 66.8 % Lymphocytes (%) (Auto) 27.1 % 23.4 % Monocytes (%) (Auto) 7.8 % 8.4 % Eosinophils (%) (Auto) 0.8 % 1.0 % Basophils (%) (Auto) 0.2 % 0.4 % Neutrophils # (Auto) 5.2 TH/MM3 6.5 TH/MM3 Lymphocytes # (Auto) 2.2 TH/MM3 2.3 TH/MM3 Monocytes # (Auto) 0.6 TH/MM3 0.8 TH/MM3 Eosinophils # (Auto) 0.1 TH/MM3 0.1 TH/MM3 Basophils # (Auto) 0.0 TH/MM3 0.0 TH/MM3 CBC Comment DIFF FINAL DIFF FINAL Differential Comment Albumin 2.1 GM/DL 2.6 GM/DL Alkaline Phosphatase 53 U/L 67 U/L Aspartate Amino Transf (AST/SGOT) 13 U/L 57 U/L Alanine Aminotransferase (ALT/SGPT) 11 U/L 21 U/L Total Bilirubin 0.3 MG/DL 0.3 MG/DL Hemoglobin A1c 5.6 % Free Thyroxine 1.29 NG/DL Thyroid Stimulating Hormone 3rd Gen 0.340 uIU/ML Imaging Last Impressions Abdomen X-Ray 12/13/17 1000 Signed Impressions: CONCLUSION: Probable mild postop ileus. Head CT 12/11/17 0000 Signed Impressions: CONCLUSION: 1. No acute intracranial hemorrhage. 2. Chronic bilateral white matter changes. Chest X-Ray 12/08/17 1621 Signed Impressions: CONCLUSION: No acute cardiopulmonary disease. Abdomen/Pelvis CT 12/08/17 0000 Signed Impressions: CONCLUSION: 1. Abnormal bowel gas pattern with multiple loops of borderline dilated small bowel with air-fluid levels as well as a transition zone in the anterior lower abdomen. The small bowel past this point is decompressed as is the colon. This is of concern for early or partial small bowel obstruction. There is mild infla mmatory change and there is ascitic fluid in the pelvis. 2. 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 3. Hepatic steatosis with subtle low-attenuation lesion right lobe of the live r which is nonspecific. 4. Small hiatal hernia. Objective Remarks GENERAL: Awake alert and oriented 3 distended talkative and cooperative SKIN: Warm and dry. HEAD: Atraumatic. Normocephalic. EYES: Pupils equal and round. No scleral icterus. No injection or drainage. ENT: No nasal bleeding or discharge. Mucous membranes pink and moist. NECK: Trachea midline. No JVD. CARDIOVASCULAR: Regular rate and rhythm. RESPIRATORY: No accessory muscle use. Clear to auscultation. Breath sounds equal bilaterally. GASTROINTESTINAL: Abdomen soft, non-tender, nondistended. Hepatic and splenic margins not palpable. Obese distended MUSCULOSKELETAL: Extremities without clubbing, cyanosis, or edema. No obvious deformities. NEUROLOGICAL: Awake and alert. No obvious cranial nerve deficits. Motor grossly within normal limits. Five out of 5 muscle strength in the arms and legs. Normal speech. PSYCHIATRIC: Appropriate mood and affect; insight and judgment normal. Procedures 12/10/2017 PREOPERATIVE DIAGNOSIS: Small bowel obstruction, adhesions. 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 SURGEON: Yuan Perez MD ASSISTANT DEPARTMENT MANAGER: CRC PROCEDURE PERFORMED: 1. Diagnostic laparoscopy. 2. Laparoscopic converted to open abdominal, lysis of adhesions, greater than 60 minutes. 3. Small bowel resection x 2. Medications and IVs Current Medications Sodium Chloride (NS Flush) 2 ml UNSCH PRN IVF FLUSH AFTER USING IV ACCESS Last administered on 12/08/17 19:48; Start 12/08/17 at 16:30; Stop 12/09/17 at 03:03; Status DC Sodium Chloride 500 ml @ 500 mls/hr ONCE ONCE IV Last administered on at 16:52; Start 12/08/17 at 16:30; Stop 12/08/17 at 17:29; Status DC Promethazine HCl (Phenergan Inj) 25 mg ONCE ONCE IM Last administered on 16:52; Start 12/08/17 at 16:30; Stop 12/08/17 at 16:31; Status DC Lorazepam (Ativan Inj) 1 mg ONCE ONCE IV PUSH Last administered on 12/08/17at 17 :49; Start 12/08/17 at 17:45; Stop 12/08/17 at 17:46; Status DC Iohexol (Omnipaque 350 Inj) 90 ml STK-MED ONCE IVCONTRAST Last administered on 12/08/17at 18:11; Start 12/08/17 at 18:11; Stop 12/08/17 at 18:12; Status DC Ketorolac Tromethamine (Toradol Inj) 30 mg ONCE ONCE IV PUSH Last administered on 12/08/17at 19:48; Start 12/08/17 at 19:45; Stop 12/08/17 at 19:46; Status DC Sodium Chloride 1,000 ml @ 100 mls/hr Q10H IV Last administered on 12/15/17 12 :31; Start 12/08/17 at 20:12 Sodium Chloride (NS Flush) 2 ml UNSCH PRN IV FLUSH FLUSH AFTER USING IV ACCESS ; Start 12/08/17 at 20:15 Sodium Chloride (NS Flush) 2 ml BID IV FLUSH Last administered on 12/14/17 20: 25; Start 12/08/17 at 21:00 Naloxone HCl (Narcan Inj) 0.4 mg UNSCH PRN IV PUSH SEE LABEL COMMENTS Last administered on 12/11/17 04:04; Start 12/08/17 at 20:15 Metoclopramide HCl (Reglan Inj) 5 mg Q8H PRN IV PUSH nausea Last administered on 12/14/17 20:20; Start 12/08/17 at 20:15 Estradiol (Estradiol) 0.5 mg DAILY PO Last administered on 12/15/17 08:51; Start 12/09/17 at 09:00 Levothyroxine Sodium (Synthroid) 112 mcg DAILY@0600 PO Last administered on 12/15 04:41; Start 12/09/17 at 06:00 Loratadine (Claritin) 10 mg DAILY PO Last administered on 12/15/17 08:51; Start 12/09/17 at 09:00 Non-Formulary Medication 25 mg DAILY PO ; Start 12/09/17 at 09:00; Status UNV Trazodone HCl (Desyrel) 100 mg HS PO Last administered on 12/14/17 20:20; Start 12/09/17 at 21:00 Morphine Sulfate (Morphine Inj) 2 mg Q3H PRN IV pain>5 Last administered on 12/09 08:05; Start 12/09/17 at 02:30; Stop 12/09/17 at 10:33; Status DC Trazodone HCl (Desyrel) 100 mg ONCE ONCE PO Last administered on 12/09/17 03: 11; Start 12/09/17 at 03:00; Stop 12/09/17 at 03:02; Status DC Hydromorphone HCl (Dilaudid Pf Inj) 1 mg Q3H PRN IV PAIN SCALE 6 TO 10 Last administered on 6/4/18at 01:03; Start 12/09/17 at 11:00; Stop 12/11/17 at 06:53; Status DC Sodium Chloride 500 ml @ 30 mls/hr [id number] PRN IV SEE LABEL COMMENTS; Start 12/10/17 at 00:15; Stop 12/10/17 at 20:05; Status DC Bupivacaine HCl/ Epinephrine Bitart (Sensorcaine-Epinephrine Pf 0.5% Inj) 30 ml STK-MED ONCE .ROUTE ; Start 12/10/17 at 15:04; Stop 12/10/17 at 15:05; Status DC Acetaminophen 100 ml @ As Directed STK-MED ONCE IV ; Start 12/10/17 at 16:02; Stop 12/10/17 at 16:03; Status DC Metronidazole 100 ml @ As Directed STK-MED ONCE IV Last administered on at 16:34; Start 12/10/17 at 16:17; Stop 12/10/17 at 16:18; Status DC Cefazolin Sodium/ Dextrose 50 ml @ As Directed STK-MED ONCE .ROUTE Last administered on 12/10/17at 16:28; Start 12/10/17 at 16:17; Stop 12/10/17 at 16:18; Status DC Fentanyl Citrate (fentaNYL INJ) 100 mcg STK-MED ONCE .ROUTE ; Start 12/10/17 at 18:50; Stop 12/10/17 at 18:51; Status DC Cefazolin Sodium/ Dextrose 50 ml @ 100 mls/hr Q8H IV Last administered on at 08:52; Start 12/11/17 at 00:00 Metronidazole 100 ml @ 100 mls/hr Q8H IV Last administered on 12/15/17at 09:41; Start 12/11/17 at 00:00 Sugammadex Sodium (Bridion Inj) 200 mg STK-MED ONCE IV PUSH ; Start 12/10/17 at 19:40; Stop 12/10/17 at 19:41; Status DC Midazolam HCl (Versed Inj) 2 mg STK-MED ONCE .ROUTE ; Start 12/10/17 at 19:59; Stop 12/10/17 at 20:00; Status DC Fentanyl Citrate (fentaNYL INJ) 300 mcg STK-MED ONCE .ROUTE ; Start 12/10/17 at 20:00; Stop 12/10/17 at 20:01; Status DC Meperidine HCl (*DEMEROL INJ PERIprocedural ONLY) 25 mg STK-MED ONCE .ROUTE Last administered on 12/10/17at 20:04; Start 12/10/17 at 20:01; Stop 12/10/17 at 20: 02; Status DC Miscellaneous Information ([facility] [place] [facility] Information) ALL NURSING DEPARTME... UNSCH PRN .XX SEE LABEL COMMENTS; Start 12/10/17 at 20:15; Stop 12/11/17 at 20:14 ; Status DC Hydromorphone HCl (*DILAUDID PF INJ PERIprocedure ONLY) 0.5 mg STK-MED ONCE .ROUTE Last administered on 12/10/17at 20:13; Start 12/10/17 at 20:12; Stop at 20:13; Status DC Hydromorphone HCl (*DILAUDID PF INJ PERIprocedure ONLY) 0.5 mg STK-MED ONCE .ROUTE Last administered on 12/10/17at 20:23; Start 12/10/17 at 20:21; Stop at 20:22; Status DC Hydromorphone HCl (*DILAUDID PF INJ PERIprocedure ONLY) 0.5 mg STK-MED ONCE .ROUTE Last administered on 12/10/17at 20:33; Start 12/10/17 at 20:31; Stop at 20:32; Status DC Hydromorphone HCl (*DILAUDID PF INJ PERIprocedure ONLY) 0.5 mg STK-MED ONCE .ROUTE Last administered on 12/10/17at 20:53; Start 12/10/17 at 20:51; Stop at 20:52; Status DC Hydromorphone HCl (*DILAUDID PF INJ PERIprocedure ONLY) 1 mg STK-MED ONCE .ROUTE ; Start 12/10/17 at 21:01; Stop 12/10/17 at 21:02; Status DC Hydromorphone HCl (Dilaudid Pf Inj) 1 mg NOW ONCE IV Last administered on at 21:05; Start 12/10/17 at 21:30; Stop 12/10/17 at 21:31; Status DC Hydromorphone HCl (Dilaudid Pf Inj) 1 mg ONCE ONCE IV ; Start 12/10/17 at 21:45 ; Stop 12/10/17 at 21:46; Status DC Albuterol/ Ipratropium (Duoneb Neb) 1 ampule Q4HR NEB PRN NEB SHORTNESS OF BREATH Last administered on 12/15/17at 09:16; Start 12/11/17 at 04:00 Hydromorphone HCl (Dilaudid Pf Inj) 0.5 mg Q3H PRN IV PAIN SCALE 6 TO 10 Last administered on 12/13/17at 13:38; Start 12/11/17 at 08:00 Acetaminophen 100 ml @ 400 mls/hr Q6H IV Last administered on 12/15/17 11:03; Start 12/11/17 at 10:00 Ketorolac Tromethamine (Toradol Inj) 30 mg Q6HR IV PUSH Last administered on 12/15/17at 12:31; Start 12/11/17 at 12:00; Stop 12/16/17 at 11:59 Potassium Chloride (KCl) 30 meq ONCE ONCE PO Last administered on 12/11/17at 11: 47; Start 12/11/17 at 11:30; Stop 12/11/17 at 11:31; Status DC Ondansetron HCl (Zofran Odt) 4 mg Q6H PRN SL nausea Last administered on at 06:10; Start 12/12/17 at 01:15 Enoxaparin Sodium (Lovenox Inj) 40 mg Q24H SQ Last administered on 12/15/17at 11: 03; Start 12/12/17 at 10:00 Lidocaine HCl (Xylocaine-Mpf 1% Inj) 5 ml STK-MED ONCE OTHER ; Start 12/10/17 at 12:00; Stop 12/12/17 at 14:35; Status DC Rocuronium [place] (Zemuron Inj) 100 mg STK-MED ONCE IV PUSH ; Start 12/10/17 at 12:00; Stop 12/12/17 at 14:35; Status DC Neostigmine Methylsulfate (Prostigmine Inj) 5 mg STK-MED ONCE IV PUSH ; Start at 12:00; Stop 12/12/17 at 14:35; Status DC Glycopyrrolate (Robinul Inj) 1 mg STK-MED ONCE IV PUSH ; Start 12/10/17 at 12:00 ; Stop 12/12/17 at 14:35; Status DC Ephedrine Sulfate (ePHEDrine/NS 25 MG/5 ML SYR) 25 mg STK-MED ONCE IV ; Start at 12:00; Stop 12/12/17 at 14:35; Status DC Dexamethasone Sodium Phosphate (Decadron Inj) 4 mg STK-MED ONCE IV ; Start at 12:00; Stop 12/12/17 at 14:35; Status DC Ondansetron HCl (Zofran Inj) 4 mg STK-MED ONCE IV PUSH ; Start 12/10/17 at 12:00 ; Stop 12/12/17 at 14:35; Status DC Propofol (Diprivan 200 Mg/20 ml Inj) 400 mg STK-MED ONCE IV ; Start 12/10/17 at 12:00; Stop 12/12/17 at 14:35; Status DC Ondansetron HCl (Zofran Odt) 4 mg STK-MED ONCE PO ; Start 12/10/17 at 12:00; Stop 12/12/17 at 14:35; Status DC Lorazepam (Ativan Inj) 1 mg Q6H PRN IV PUSH ANXIETY Last administered on at 00:22; Start 12/13/17 at 10:00 Potassium Chloride 100 ml @ 50 mls/hr Q2H IV ; Start 12/13/17 at 15:00; Stop 12/13/17 at 15:04; Status DC Potassium Chloride (KCl) 80 meq ONCE ONCE PO Last administered on 12/13/17at 15: 27; Start 12/13/17 at 15:15; Stop 12/13/17 at 15:16; Status DC Diatrizoate Meglum/ Diatrizoate Sod ( Gastroview Liq) 18 ml ONCE ONCE PO Last administered on 12/15/17at 09:41; Start 12/15/17 at 09:15; Stop 12/15/17 at 09: 16; Status DC Ondansetron HCl (Zofran Odt) 4 mg NOW ONCE PO Last administered on 12/15/17at 11:23; Start 12/15/17 at 11:30; Stop 12/15/17 at 11:31; Status DC Potassium Chloride 100 ml @ 50 mls/hr Q2H IV Last administered on 12/15/17at 12: 31; Start 12/15/17 at 12:15; Stop 12/15/17 at 20:14 A/P Problem List: (1) Small bowel obstruction ICD Code: K56.609 - Unspecified intestinal obstruction, unspecified as to partial versus complete obstruction (2) Hypothyroidism ICD Code: E03.9 - Hypothyroidism, unspecified Assessment and Plan 67 y/o female with a history of immunocompromise, 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 SBO Abdominal CT reviewed and shows Abnormal bowel gas pattern with multiple loops of borderline dilated small bowel with air-fluid levels as well as a transition zone in the anterior lower abdomen. The small bowel past this point is decompressed as is the colon. This is of concern for early or partial small bowel obstruction. There is mild inflammatory change and there is ascitic fluid in the pelvis. -IVF -Pain management with IV morphine 6/4 persistent small bowel obstruction status post diagnostic lap reported to expiratory laparotomy with lysis of adhesions, small bowel resection. -Started on Ofirmev Toradol added by general surgery. Agree with management. -Start on clear liquid diet 6/5 management as per general surgery. Continue clear liquid diet, encourage out of bed, Hope discontinued. Encourage out of bed. I S and ambulation. TO HAVE CT OF ABDOMEN TODAY 6-8 HYPOKALEMIA- WILL REPLACE WITH IV SINCE NOT TOLERATING A PO DIET TODAY AM LABS MULTIPLE FOOD TYPE ALLERGIES Hypothyroid, chronic -Continue Levothyroxine.. DVT prophylaxis: SCDs, Lovenox started as per general surgery recommendations. Discharge Planning Continue to monitor in the medical floor. Discharge Planning Pending clearance by surgery still not ready for discharge Marc Navarro DO Dec 15, 2017 13:51
--- NOTE | 2017-12-15 14:44 | HHI.PR ---
Subjective Subjective Notes RENEE saturated Nauseous Objective Vitals/I&O Vital Signs Date Time Temp Pulse Resp B/P (MAP) Pulse Ox O2 Delivery O2 Flow Rate FiO2 12/15/17 12:00 98.0 82 19 157/69 (98) 96 12/15/17 09:18 Nasal Cannula 2.00 12/12/17 10:50 21 Labs Laboratory Tests Test 12/15/17 10:45 White Blood Count 9.8 Red Blood Count 4.29 Hemoglobin 12.4 Hematocrit 36.7 Mean Corpuscular Volume 85.5 Mean Corpuscular Hemoglobin 28.8 Mean Corpuscular Hemoglobin Concent 33.7 Red Cell Distribution Width 13.9 Platelet Count 275 Mean Platelet Volume 9.3 Neutrophils (%) (Auto) 66.8 Lymphocytes (%) (Auto) 23.4 Monocytes (%) (Auto) 8.4 Eosinophils (%) (Auto) 1.0 Basophils (%) (Auto) 0.4 Neutrophils # (Auto) 6.5 Lymphocytes # (Auto) 2.3 Monocytes # (Auto) 0.8 Eosinophils # (Auto) 0.1 Basophils # (Auto) 0.0 CBC Comment DIFF FINAL Differential Comment Blood Urea Nitrogen 4 Creatinine 0.52 Random Glucose 100 Total Protein 6.1 Albumin 2.6 Calcium Level 8.0 Phosphorus Level 0.9 Magnesium Level 1.9 Alkaline Phosphatase 67 Aspartate Amino Transf (AST/SGOT) 57 Alanine Aminotransferase (ALT/SGPT) 21 Total Bilirubin 0.3 Sodium Level 142 Potassium Level 2.7 Chloride Level 105 Carbon Dioxide Level 22.6 Anion Gap 14 Estimat Glomerular Filtration Rate 118 Cardiovascular: Regular Lungs: Clear Abdomen: Other (RENEE removed; SS drainage from incision), Post-op tenderness Extremities: No edema A/P Assessment and Plan 67 year old female POD4 dx lap converted to ex lap for SBO -CT abd/pelvis today ---will follow up on results -Keep RENEE off due to drainage -Full liquids -OOB as tolerated -Lovenox -IS Attending Statement patient seen at bedside doing better bowel fxn slowly advance diet if tolerating Attestation The exam, history, and the medical decision-making described in the above note were completed with the assistance of the mid-level provider. I reviewed and agree with the findings presented. I attest that I had a [id number] encounter with the patient on the same day, and personally performed and documented my assessment and findings in the medical record. Radha Childers/[employer] BIRD Dec 15, 2017 14:44 Yuan Perez MD Dec 20, 2017 22:06
[2017-12-15] MEDS ORDERED: IOHEXOL 350 MG/ML 10 ML VIAL (for RAD DIAG) IVCONTRAST ONE (18:06)
[2017-12-15] MEDS ORDERED: PROMETHAZINE HCL 12.5 MG SUPP RECTAL PRN (18:30)
--- NOTE | 2017-12-15 18:31 | RADRPT ---
EXAM DATE: 12/15/2017 6:10 PM EDT AGE/SEX: 67 years / Female INDICATIONS: Post operative exploratory laparotomy. CLINICAL DATA: This is the patient's initial encounter. Patient reports that signs and symptoms have been present for 1 day and indicates a pain score of 0/10. MEDICAL/SURGICAL HISTORY: Cardiovascular disease. Hypertension. Thyroid disease. Hysterectomy . ORAL CONTRAST: Prescribed oral contrast ingested. RADIATION DOSE: 16.49 CTDI (mGy) COMPARISON: [facility], CT ABDOMEN & PELVIS W CONTRAST, 12/08/2017. . TECHNIQUE: Multiple contiguous axial images were obtained through the abdomen and pelvis following b olus infusion of 92 ml Omnipaque 350 (iohexol) nonionic water-soluble contrast as a single exam dos e. Prescribed oral contrast ingested. Using automated exposure control and adjustment of the mA and/ or kV according to patient size, the radiation dose was kept as low as reasonably achievable to obtai n optimal diagnostic quality images. FINDINGS: Lower Lungs: There are bilateral pleural effusions being mild to moderate on the right and mild on th e left. There is accompanying atelectasis at the lung bases. Liver: The liver demonstrates mild decreased attenuation. There are calcified granulomas. There is a 9 mm hypodensity seen in the right lobe of the liver. This is unchanged. Spleen: Calcified granulomas are seen. Pancreas: Unremarkable without mass or calcification. Kidneys: Normal in size and shape. No evidence of mass or hydronephrosis. Adrenal Glands: There is a 2.4 cm left adrenal gland mass. Aorta: The aorta and proximal iliac vessels are grossly unremarkable without aneurysmal dilation. Bowel/Mesentery: The patient is status post surgery. Bowel anastomosis sutures are seen in the right mid abdomen and the right lower quadrant. There is some mild induration of the mesentery around thes e anastomotic sutures likely related to postsurgical change. There is a small amount of fluid seen in the mesentery adjacent to the inferior anastomotic suture. This is an elongated configuration measur ing approximately 4.9 cm in length measuring up to 1.7 cm in diameter. This does not have a wall. It appears to represent fluid in the mesentery without capsule. There is some dilatation of the proximal small bowel dilatation is clearly less prominent than seen previously.The small bowel measures up to 3 cm. The mildly dilated small bowel is on the left upper quadrant and mid abdomen. More distal smal l bowel is decompressed. There clearly is oral contrast within the rectum. Abdominal Wall: There is some induration in the anterior abdominal wall subcutaneous fat likely from the prior surgery. A focal abscess is not seen. There are small foci of air seen within the subcutan eous fat. Skin lakes[place]ia are seen in the midline.. Retroperitoneum: No evidence of adenopathy in the retrocrural, para-aortic, or deep pelvic regions. Bladder: Contours are smooth. Reproductive Organs: The patient is status post hysterectomy. Inguinal: The inguinal region is unremarkable without evidence of adenopathy. Bony Structures: Unremarkable. CONCLUSION: 1. Status post abdominal surgery with 2 anastomosis suture seen in the right mid and lower abdomen. 2. Mildly dilated proximal small bowel with distal small bowel being decompressed. Some focal ileus versus partial obstruction could've this appearance. Oral contrast is clearly seen within the rectum ruling out a complete obstruction. 3. Suspected postoperative induration in the mesentery around the anastomotic suture regions and a s mall amount of free fluid in the mesentery. No abscess is seen. 4. Bilateral pleural effusions being greater on the right. 5. Mild hepatic steatosis. 6. 2.4 cm Left adrenal gland mass. Electronically signed by: Bert Khalil MD 12/15/2017 6:29 PM EDT
[2017-12-15] MEDS: REMOVE OLD SCOPOLAMINE PATCH T-DERMAL SCH (20:00)
[2017-12-15] MEDS: traZODone HCL 100 MG TAB PO SCH (21:02)
[2017-12-15] MEDS: SCOPOLAMINE 1.5 MG PATCH T-DERMAL SCH (21:05)
[2017-12-16] VITALS: BP 138/66; PULSE 74; RESP 20; TEMP 98.2; O2SAT 94
[2017-12-16] MEDS: KETOROLAC TROMETHAMINE 30 MG/ML (IVP) VIAL IV PUSH SCH (05:06)
[2017-12-16] MEDS: ACETAMINOPHEN 1000 MG/100 ML 100 ML IV SCH ×4 (05:06→21:42)
[2017-12-16] MEDS: SODIUM CHLOR 0.9% 1000 ML INJ 1,000 ML IV SCH ×2 (05:16→17:55)
[2017-12-16] MEDS: LEVOTHYROXINE SODIUM 112 MCG TAB PO SCH (05:57)
[2017-12-16 05:59] LABS: AUTOMATED NEUTROPHIL # 5.5 TH/MM3 (1.8-7.7); BASOPHIL # 0.1 TH/MM3 (0-0.2); EOSINOPHIL # 0.1 TH/MM3 (0-0.4); EOSINOPHIL % 1.4 % (0.0-4.0); HEMATOCRIT 32.9 % (35.0-46.0); HEMOGLOBIN 11.3 GM/DL (11.6-15.3); LYMPH % 29.7 % (9.0-44.0); LYMPHOCYTE # 2.8 TH/MM3 (1.0-4.8); MEAN CELL VOLUME 86.1 FL (80.0-100.0); MEAN CORPUSCULAR HEMOGLOBIN 29.7 PG (27.0-34.0); MEAN CORPUSCULAR HGB CONC 34.5 % (32.0-36.0); MEAN PLATELET VOLUME 9.2 FL (7.0-11.0); MONO % 9.6 % (0.0-8.0); MONOCYTE # 0.9 TH/MM3 (0-0.9); NEUT % 58.3 % (16.0-70.0); PLATELET COUNT 272 TH/MM3 (150-450); RED BLOOD COUNT 3.83 MIL/MM3 (4.00-5.30); WHITE BLOOD COUNT 9.5 TH/MM3 (4.0-11.0)
[2017-12-16 06:36] LABS: ALBUMIN 2.4 GM/DL (3.4-5.0); BICARBONATE 24.1 MEQ/L (21.0-32.0); CALCIUM 7.2 MG/DL (8.5-10.1); CALCIUM-PROTEIN CORRECTED 8.1 MG/DL (8.5-10.1); CREATININE 0.52 MG/DL (0.50-1.00); MAGNESIUM 1.8 MG/DL (1.5-2.5); PHOSPHORUS 1.2 MG/DL (2.5-4.9); TOTAL BILIRUBIN ADULT 0.3 MG/DL (0.2-1.0); TOTAL PROTEIN 5.4 GM/DL (6.4-8.2)
[2017-12-16] MEDS ORDERED: POTASSIUM CHLOR 20 MEQ PREMIX 100 ML IV SCH (07:30)
[2017-12-16 08:00] VITALS: BP 147/67; PULSE 64; RESP 18; TEMP 98; O2SAT 96
[2017-12-16] MEDS: ceFAZolin 2 GM PREMIX 50 ML IV SCH ×3 (08:00→21:59)
[2017-12-16] MEDS: LORATADINE 10 MG TAB PO SCH (09:00)
[2017-12-16] MEDS: ESTRADIOL 1 MG TAB PO SCH (09:00)
[2017-12-16] MEDS: POTASSIUM CHLOR 20 MEQ PREMIX 100 ML IV SCH ×5 (09:18→19:01)
[2017-12-16] MEDS: SODIUM CHLORIDE 0.9% FLUSH 10 ML FLUSH IV FLUSH SCH ×2 (09:21→21:00)
[2017-12-16] MEDS: ENOXAPARIN SODIUM 40 MG/0.4 ML SYRINGE SQ SCH (09:22)
[2017-12-16] MEDS: ONDANSETRON ODT 4 MG TAB SL PRN (10:08)
[2017-12-16] MEDS: LORazepam 2 MG/ML VIAL IV PUSH PRN ×2 (10:09→21:59)
[2017-12-16] MEDS: metroNIDAZOLE 500 MG INJ 100 ML IV SCH ×2 (10:09→16:51)
[2017-12-16] MEDS ORDERED: LIDOCAINE VISCOUS 2% SOLN 15 ML UDC SWISH-SWAL PRN (11:00)
--- NOTE | 2017-12-16 11:05 | HHI.PR ---
Subjective Remarks 6-6Poor oral intake still not eating much Physical therapy and Occupational Therapy A.m. labs 6-7 STILL NOT EATING MUCH OUT OF CONCERN OF PRESERVATIVES AND MSG IN FOODS DW RN AND PT AND CM ACCESS PORT PT AND OT AM LABS INCREASE DIET 6-8 TO HAVE CAT SCAN OF ABDOMEN TODAY REPLACE POTASSIUM THAT IS LOW NOT CLEARED BY SURGERY FOR DISCHARGE AM LABS NOT TRYING TO DO ADLS 6-9 CAT SCAN SHOWED PARTIAL SBO WANTS SOMETHING FOR SORE THROAT - WILL TRY LIDOCAINE DW RN AND PT AND CM AM LABS WILL NEED SNF ONCE CLEARED BY SURGERY REPLACE POTASSIUM VIA IV Objective Vitals Vital Signs Date Time Temp Pulse Resp B/P (MAP) Pulse Ox O2 Delivery O2 Flow Rate FiO2 12/16/17 08:00 98.0 64 18 147/67 (93) 96 12/16/17 00:00 98.2 74 20 138/66 (90) 94 12/15/17 20:00 98.0 61 20 158/72 (100) 97 12/15/17 18:07 95 Nasal Cannula 2.00 12/15/17 16:00 98.3 64 19 179/83 (115) 95 12/15/17 12:00 98.0 82 19 157/69 (98) 96 I/O 12/15/17 12/15/17 12/15/17 12/16/17 12/16/17 12/16/17 07:00 15:00 23:00 07:00 15:00 23:00 Intake Total 480 ml 350 ml 580 ml Output Total 350 ml 6 ml Balance 130 ml 350 ml 574 ml Intake Oral 480 ml 480 ml IV Total 350 ml 100 ml Output Urine Total 350 ml 6 ml # Voids 1 # Bowel Movements 9 6 1 Result Diagram: 12/16/17 0525 12/16/17 0525 Other Results Laboratory Tests Test 12/14/17 07:00 12/15/17 10:45 12/16/17 05:25 White Blood Count 8.2 TH/MM3 9.8 TH/MM3 9.5 TH/MM3 Red Blood Count 3.92 MIL/MM3 4.29 MIL/MM3 3.83 MIL/MM3 Hemoglobin 11.5 GM/DL 12.4 GM/DL 11.3 GM/DL Hematocrit 34.3 % 36.7 % 32.9 % Mean Corpuscular Volume 87.5 FL 85.5 FL 86.1 FL Mean Corpuscular Hemoglobin 29.3 PG 28.8 PG 29.7 PG Mean Corpuscular Hemoglobin Concent 33.5 % 33.7 % 34.5 % Red Cell Distribution Width 13.9 % 13.9 % 14.0 % Platelet Count 236 TH/MM3 275 TH/MM3 272 TH/MM3 Mean Platelet Volume 9.5 FL 9.3 FL 9.2 FL Neutrophils (%) (Auto) 64.1 % 66.8 % 58.3 % Lymphocytes (%) (Auto) 27.1 % 23.4 % 29.7 % Monocytes (%) (Auto) 7.8 % 8.4 % 9.6 % Eosinophils (%) (Auto) 0.8 % 1.0 % 1.4 % Basophils (%) (Auto) 0.2 % 0.4 % 1.0 % Neutrophils # (Auto) 5.2 TH/MM3 6.5 TH/MM3 5.5 TH/MM3 Lymphocytes # (Auto) 2.2 TH/MM3 2.3 TH/MM3 2.8 TH/MM3 Monocytes # (Auto) 0.6 TH/MM3 0.8 TH/MM3 0.9 TH/MM3 Eosinophils # (Auto) 0.1 TH/MM3 0.1 TH/MM3 0.1 TH/MM3 Basophils # (Auto) 0.0 TH/MM3 0.0 TH/MM3 0.1 TH/MM3 CBC Comment DIFF FINAL DIFF FINAL DIFF FINAL Differential Comment Blood Urea Nitrogen 7 MG/DL 4 MG/DL 4 MG/DL Creatinine 0.48 MG/DL 0.52 MG/DL 0.52 MG/DL Random Glucose 80 MG/DL 100 MG/DL 86 MG/DL Total Protein 5.2 GM/DL 6.1 GM/DL 5.4 GM/DL Albumin 2.1 GM/DL 2.6 GM/DL 2.4 GM/DL Calcium Level 7.0 MG/DL 8.0 MG/DL 7.2 MG/DL Phosphorus Level 1.1 MG/DL 0.9 MG/DL 1.2 MG/DL Magnesium Level 2.0 MG/DL 1.9 MG/DL 1.8 MG/DL Alkaline Phosphatase 53 U/L 67 U/L 63 U/L Aspartate Amino Transf (AST/SGOT) 13 U/L 57 U/L 80 U/L Alanine Aminotransferase (ALT/SGPT) 11 U/L 21 U/L 30 U/L Total Bilirubin 0.3 MG/DL 0.3 MG/DL 0.3 MG/DL Sodium Level 143 MEQ/L 142 MEQ/L 141 MEQ/L Potassium Level 3.5 MEQ/L 2.7 MEQ/L 2.9 MEQ/L Chloride Level 110 MEQ/L 105 MEQ/L 105 MEQ/L Carbon Dioxide Level 21.3 MEQ/L 22.6 MEQ/L 24.1 MEQ/L Anion Gap 12 MEQ/L 14 MEQ/L 12 MEQ/L Estimat Glomerular Filtration Rate 129 ML/MIN 118 ML/MIN 118 ML/MIN Hemoglobin A1c 5.6 % Protein Corrected Calcium 8.0 MG/DL 8.1 MG/DL Free Thyroxine 1.29 NG/DL Thyroid Stimulating Hormone 3rd Gen 0.340 uIU/ML Imaging Last Impressions Abdomen/Pelvis CT 12/15/17 0000 Signed Impressions: CONCLUSION: 1. Status post abdominal surgery with 2 anastomosis suture seen in the right m id and lower abdomen. 2. Mildly dilated proximal small bowel with distal small bowel being decompres sed. Some focal ileus versus partial obstruction could've this appearance. Oral contrast is clearly seen within the rectum ruling out a complete obstruction. 3. Suspected postoperative induration in the mesentery around the anastomotic suture regions and a small amount of free fluid in the mesentery. No abscess is seen. 4. Bilateral pleural effusions being greater on the right. 5. Mild hepatic steatosis. 6. 2.4 cm Left adrenal gland mass. Abdomen X-Ray 12/13/17 1000 Signed Impressions: CONCLUSION: Probable mild postop ileus. Head CT 12/11/17 0000 Signed Impressions: CONCLUSION: 1. No acute intracranial hemorrhage. 2. Chronic bilateral white matter changes. Chest X-Ray 12/08/17 1621 Signed Impressions: CONCLUSION: No acute cardiopulmonary disease. Objective Remarks GENERAL: Awake alert and oriented 3 distended talkative and cooperative SKIN: Warm and dry. HEAD: Atraumatic. Normocephalic. EYES: Pupils equal and round. No scleral icterus. No injection or drainage. ENT: No nasal bleeding or discharge. Mucous membranes pink and moist. NECK: Trachea midline. No JVD. CARDIOVASCULAR: Regular rate and rhythm. RESPIRATORY: No accessory muscle use. Clear to auscultation. Breath sounds equal bilaterally. GASTROINTESTINAL: Abdomen soft, non-tender, nondistended. Hepatic and splenic margins not palpable. Obese distended MUSCULOSKELETAL: Extremities without clubbing, cyanosis, or edema. No obvious deformities. NEUROLOGICAL: Awake and alert. No obvious cranial nerve deficits. Motor grossly within normal limits. Five out of 5 muscle strength in the arms and legs. Normal speech. PSYCHIATRIC: Appropriate mood and affect; insight and judgment normal. Procedures 12/10/2017 PREOPERATIVE DIAGNOSIS: Small bowel obstruction, adhesions. 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 SURGEON: Yuan Perez MD PHOTOGRAMMETRIST: CRC PROCEDURE PERFORMED: 1. Diagnostic laparoscopy. 2. Laparoscopic converted to open abdominal, lysis of adhesions, greater than 60 minutes. 3. Small bowel resection x 2. Medications and IVs Current Medications Sodium Chloride (NS Flush) 2 ml UNSCH PRN IVF FLUSH AFTER USING IV ACCESS Last administered on 12/08/17at 19:48; Start 12/08/17 at 16:30; Stop 12/09/17 at 03:03; Status DC Sodium Chloride 500 ml @ 500 mls/hr ONCE ONCE IV Last administered on at 16:52; Start 12/08/17 at 16:30; Stop 12/08/17 at 17:29; Status DC Promethazine HCl (Phenergan Inj) 25 mg ONCE ONCE IM Last administered on 16:52; Start 12/08/17 at 16:30; Stop 12/08/17 at 16:31; Status DC Lorazepam (Ativan Inj) 1 mg ONCE ONCE IV PUSH Last administered on 12/08/17at 17 :49; Start 12/08/17 at 17:45; Stop 12/08/17 at 17:46; Status DC Iohexol (Omnipaque 350 Inj) 90 ml STK-MED ONCE IVCONTRAST Last administered on 12/08/17at 18:11; Start 12/08/17 at 18:11; Stop 12/08/17 at 18:12; Status DC Ketorolac Tromethamine (Toradol Inj) 30 mg ONCE ONCE IV PUSH Last administered on 12/08/17at 19:48; Start 12/08/17 at 19:45; Stop 12/08/17 at 19:46; Status DC Sodium Chloride 1,000 ml @ 100 mls/hr Q10H IV Last administered on 12/16/17at 05 :16; Start 12/08/17 at 20:12 Sodium Chloride (NS Flush) 2 ml UNSCH PRN IV FLUSH FLUSH AFTER USING IV ACCESS ; Start 12/08/17 at 20:15 Sodium Chloride (NS Flush) 2 ml BID IV FLUSH Last administered on 12/16/17at 09: 21; Start 12/08/17 at 21:00 Naloxone HCl (Narcan Inj) 0.4 mg UNSCH PRN IV PUSH SEE LABEL COMMENTS Last administered on 12/11/17 04:04; Start 12/08/17 at 20:15 Metoclopramide HCl (Reglan Inj) 5 mg Q8H PRN IV PUSH nausea Last administered on 12/14/17 20:20; Start 12/08/17 at 20:15 Estradiol (Estradiol) 0.5 mg DAILY PO Last administered on 12/15/17 08:51; Start 12/09/17 at 09:00 Levothyroxine Sodium (Synthroid) 112 mcg DAILY@0600 PO Last administered on 12/15 04:41; Start 12/09/17 at 06:00 Loratadine (Claritin) 10 mg DAILY PO Last administered on 12/15/17 08:51; Start 12/09/17 at 09:00 Non-Formulary Medication 25 mg DAILY PO ; Start 12/09/17 at 09:00; Status UNV Trazodone HCl (Desyrel) 100 mg HS PO Last administered on 12/15/17 21:02; Start 12/09/17 at 21:00 Morphine Sulfate (Morphine Inj) 2 mg Q3H PRN IV pain>5 Last administered on 12/09at 08:05; Start 12/09/17 at 02:30; Stop 12/09/17 at 10:33; Status DC Trazodone HCl (Desyrel) 100 mg ONCE ONCE PO Last administered on 12/09/17 03: 11; Start 12/09/17 at 03:00; Stop 12/09/17 at 03:02; Status DC Hydromorphone HCl (Dilaudid Pf Inj) 1 mg Q3H PRN IV PAIN SCALE 6 TO 10 Last administered on 12/11/17at 01:03; Start 12/09/17 at 11:00; Stop 12/11/17 at 06:53; Status DC Sodium Chloride 500 ml @ 30 mls/hr [id number] PRN IV SEE LABEL COMMENTS; Start 12/10/17 at 00:15; Stop 12/10/17 at 20:05; Status DC Bupivacaine HCl/ Epinephrine Bitart (Sensorcaine-Epinephrine Pf 0.5% Inj) 30 ml STK-MED ONCE .ROUTE ; Start 12/10/17 at 15:04; Stop 12/10/17 at 15:05; Status DC Acetaminophen 100 ml @ As Directed STK-MED ONCE IV ; Start 12/10/17 at 16:02; Stop 12/10/17 at 16:03; Status DC Metronidazole 100 ml @ As Directed STK-MED ONCE IV Last administered on at 16:34; Start 12/10/17 at 16:17; Stop 12/10/17 at 16:18; Status DC Cefazolin Sodium/ Dextrose 50 ml @ As Directed STK-MED ONCE .ROUTE Last administered on 12/10/17at 16:28; Start 12/10/17 at 16:17; Stop 12/10/17 at 16:18; Status DC Fentanyl Citrate (fentaNYL INJ) 100 mcg STK-MED ONCE .ROUTE ; Start 12/10/17 at 18:50; Stop 12/10/17 at 18:51; Status DC Cefazolin Sodium/ Dextrose 50 ml @ 100 mls/hr Q8H IV Last administered on at 08:00; Start 12/11/17 at 00:00 Metronidazole 100 ml @ 100 mls/hr Q8H IV Last administered on 12/16/17at 10:09; Start 12/11/17 at 00:00 Sugammadex Sodium (Bridion Inj) 200 mg STK-MED ONCE IV PUSH ; Start 12/10/17 at 19:40; Stop 12/10/17 at 19:41; Status DC Midazolam HCl (Versed Inj) 2 mg STK-MED ONCE .ROUTE ; Start 12/10/17 at 19:59; Stop 12/10/17 at 20:00; Status DC Fentanyl Citrate (fentaNYL INJ) 300 mcg STK-MED ONCE .ROUTE ; Start 12/10/17 at 20:00; Stop 12/10/17 at 20:01; Status DC Meperidine HCl (*DEMEROL INJ PERIprocedural ONLY) 25 mg STK-MED ONCE .ROUTE Last administered on 12/10/17 20:04; Start 12/10/17 at 20:01; Stop 12/10/17 at 20: 02; Status DC Miscellaneous Information ([facility] [place] [facility] ALL NURSING DEPARTME... UNSCH PRN .XX SEE LABEL COMMENTS; Start 12/10/17 at 20:15; Stop 12/11/17 at 20:14 ; Status DC Hydromorphone HCl (*DILAUDID PF INJ PERIprocedure ONLY) 0.5 mg STK-MED ONCE .ROUTE Last administered on 12/10/17at 20:13; Start 12/10/17 at 20:12; Stop at 20:13; Status DC Hydromorphone HCl (*DILAUDID PF INJ PERIprocedure ONLY) 0.5 mg STK-MED ONCE .ROUTE Last administered on 12/10/17 20:23; Start 12/10/17 at 20:21; Stop at 20:22; Status DC Hydromorphone HCl (*DILAUDID PF INJ PERIprocedure ONLY) 0.5 mg STK-MED ONCE .ROUTE Last administered on 12/10/17at 20:33; Start 12/10/17 at 20:31; Stop at 20:32; Status DC Hydromorphone HCl (*DILAUDID PF INJ PERIprocedure ONLY) 0.5 mg STK-MED ONCE .ROUTE Last administered on 12/10/17at 20:53; Start 12/10/17 at 20:51; Stop at 20:52; Status DC Hydromorphone HCl (*DILAUDID PF INJ PERIprocedure ONLY) 1 mg STK-MED ONCE .ROUTE ; Start 12/10/17 at 21:01; Stop 12/10/17 at 21:02; Status DC Hydromorphone HCl (Dilaudid Pf Inj) 1 mg NOW ONCE IV Last administered on at 21:05; Start 12/10/17 at 21:30; Stop 12/10/17 at 21:31; Status DC Hydromorphone HCl (Dilaudid Pf Inj) 1 mg ONCE ONCE IV ; Start 12/10/17 at 21:45 ; Stop 12/10/17 at 21:46; Status DC Albuterol/ Ipratropium (Duoneb Neb) 1 ampule Q4HR NEB PRN NEB SHORTNESS OF BREATH Last administered on 12/15/17at 22:06; Start 12/11/17 at 04:00 Hydromorphone HCl (Dilaudid Pf Inj) 0.5 mg Q3H PRN IV PAIN SCALE 6 TO 10 Last administered on 12/13/17at 13:38; Start 12/11/17 at 08:00 Acetaminophen 100 ml @ 400 mls/hr Q6H IV Last administered on 12/16/17at 05:06; Start 12/11/17 at 10:00 Ketorolac Tromethamine (Toradol Inj) 30 mg Q6HR IV PUSH Last administered on 12/16/17at 05:06; Start 12/11/17 at 12:00; Stop 12/16/17 at 11:59 Potassium Chloride (KCl) 30 meq ONCE ONCE PO Last administered on 12/11/17at 11: 47; Start 12/11/17 at 11:30; Stop 12/11/17 at 11:31; Status DC Ondansetron HCl (Zofran Odt) 4 mg Q6H PRN SL nausea Last administered on at 10:08; Start 12/12/17 at 01:15 Enoxaparin Sodium (Lovenox Inj) 40 mg Q24H SQ Last administered on 12/16/17at 09: 22; Start 12/12/17 at 10:00 Lidocaine HCl (Xylocaine-Mpf 1% Inj) 5 ml STK-MED ONCE OTHER ; Start 12/10/17 at 12:00; Stop 12/12/17 at 14:35; Status DC Rocuronium Baldwin (Zemuron Inj) 100 mg STK-MED ONCE IV PUSH ; Start 12/10/17 at 12:00; Stop 12/12/17 at 14:35; Status DC Neostigmine Methylsulfate (Prostigmine Inj) 5 mg STK-MED ONCE IV PUSH ; Start at 12:00; Stop 12/12/17 at 14:35; Status DC Glycopyrrolate (Robinul Inj) 1 mg STK-MED ONCE IV PUSH ; Start 12/10/17 at 12:00 ; Stop 12/12/17 at 14:35; Status DC Ephedrine Sulfate (ePHEDrine/NS 25 MG/5 ML SYR) 25 mg STK-MED ONCE IV ; Start at 12:00; Stop 12/12/17 at 14:35; Status DC Dexamethasone Sodium Phosphate (Decadron Inj) 4 mg STK-MED ONCE IV ; Start at 12:00; Stop 12/12/17 at 14:35; Status DC Ondansetron HCl (Zofran Inj) 4 mg STK-MED ONCE IV PUSH ; Start 12/10/17 at 12:00 ; Stop 12/12/17 at 14:35; Status DC Propofol (Diprivan 200 Mg/20 ml Inj) 400 mg STK-MED ONCE IV ; Start 12/10/17 at 12:00; Stop 12/12/17 at 14:35; Status DC Ondansetron HCl (Zofran Odt) 4 mg STK-MED ONCE PO ; Start 12/10/17 at 12:00; Stop 12/12/17 at 14:35; Status DC Lorazepam (Ativan Inj) 1 mg Q6H PRN IV PUSH ANXIETY Last administered on at 10:09; Start 12/13/17 at 10:00 Potassium Chloride 100 ml @ 50 mls/hr Q2H IV ; Start 12/13/17 at 15:00; Stop 12/13/17 at 15:04; Status DC Potassium Chloride (KCl) 80 meq ONCE ONCE PO Last administered on 12/13/17at 15: 27; Start 12/13/17 at 15:15; Stop 12/13/17 at 15:16; Status DC Diatrizoate Meglum/ Diatrizoate Sod ( Gastroview Liq) 18 ml ONCE ONCE PO Last administered on 12/15/17at 09:41; Start 12/15/17 at 09:15; Stop 12/15/17 at 09: 16; Status DC Ondansetron HCl (Zofran Odt) 4 mg NOW ONCE PO Last administered on 12/15/17at 11:23; Start 12/15/17 at 11:30; Stop 12/15/17 at 11:31; Status DC Potassium Chloride 100 ml @ 50 mls/hr Q2H IV Last administered on 12/15/17at 23: 15; Start 12/15/17 at 12:15; Stop 12/15/17 at 20:14; Status DC Iohexol (Omnipaque 350 Inj) 92 ml STK-MED ONCE IVCONTRAST Last administered on 12/15/17at 18:06; Start 12/15/17 at 18:06; Stop 12/15/17 at 18:07; Status DC Scopolamine (Transderm-Scop 1.5 Mg Patch.72 Hr) 1 patch Q3D T-DERMAL Last administered on 12/15/17at 21:05; Start 12/15/17 at 20:00 Promethazine HCl (Phenergan Supp) 12.5 mg Q6H PRN RECTAL nausea; Start 12/15/17 at 18:30 Miscellaneous Information 1 Q3D T-DERMAL ; Start 12/15/17 at 20:00 Potassium Chloride 100 ml @ 50 mls/hr Q2H IV ; Start 12/16/17 at 07:30; Stop 12/16/17 at 13:29; Status Cancel Potassium Chloride 100 ml @ 50 mls/hr Q2H IV Last administered on 12/16/17at 09: 18; Start 12/16/17 at 08:00; Stop 12/16/17 at 13:59 Potassium Chloride 100 ml @ 50 mls/hr Q2H IV ; Start 12/16/17 at 09:15; Stop 12/16/17 at 19:14 A/P Problem List: (1) Small bowel obstruction ICD Code: K56.609 - Unspecified intestinal obstruction, unspecified as to partial versus complete obstruction (2) Hypothyroidism ICD Code: E03.9 - Hypothyroidism, unspecified Assessment and Plan 67 y/o female with a history of immunocompromise, 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 SBO Abdominal CT reviewed and shows Abnormal bowel gas pattern with multiple loops of borderline dilated small bowel with air-fluid levels as well as a transition zone in the anterior lower abdomen. The small bowel past this point is decompressed as is the colon. This is of concern for early or partial small bowel obstruction. There is mild inflammatory change and there is ascitic fluid in the pelvis. -IVF -Pain management with IV morphine / persistent small bowel obstruction status post diagnostic lap reported to expiratory laparotomy with lysis of adhesions, small bowel resection. -Started on Ofirmev Toradol added by general surgery. Agree with management. -Start on clear liquid diet 6/ management as per general surgery. Continue clear liquid diet, encourage out of bed, Hope discontinued. Encourage out of bed. I S and ambulation. TO HAVE CT OF ABDOMEN TODAY 12-15 CT SHOWS PARTIAL SBO ONLY HYPOKALEMIA- WILL REPLACE WITH IV SINCE NOT TOLERATING A PO DIET TODAY AM LABS MULTIPLE FOOD TYPE ALLERGIES Hypothyroid, chronic -Continue Levothyroxine.. SORE THROAT VISCOUS LIDOCAINE DVT prophylaxis: SCDs, Lovenox started as per general surgery recommendations. Discharge Planning Continue to monitor in the medical floor. Discharge Planning Pending clearance by surgery still not ready for discharge WILL NEED SNF AT [facility] Marc Navarro DO Dec 16, 2017 11:05
--- NOTE | 2017-12-16 11:20 | HHI.PR ---
cc: Edouard Carter MD Subjective Subjective Notes DAILY PROGRESS NOTE FOR SURGICAL ATTENDING, DR. EDOUARD CARTER I have nausea Objective Vitals/I&O Vital Signs Date Time Temp Pulse Resp B/P (MAP) Pulse Ox O2 Delivery O2 Flow Rate FiO2 12/16/17 08:00 98.0 64 18 147/67 (93) 96 12/15/17 18:07 Nasal Cannula 2.00 12/12/17 10:50 21 Labs Laboratory Tests Test 12/16/17 05:25 White Blood Count 9.5 Red Blood Count 3.83 Hemoglobin 11.3 Hematocrit 32.9 Mean Corpuscular Volume 86.1 Mean Corpuscular Hemoglobin 29.7 Mean Corpuscular Hemoglobin Concent 34.5 Red Cell Distribution Width 14.0 Platelet Count 272 Mean Platelet Volume 9.2 Neutrophils (%) (Auto) 58.3 Lymphocytes (%) (Auto) 29.7 Monocytes (%) (Auto) 9.6 Eosinophils (%) (Auto) 1.4 Basophils (%) (Auto) 1.0 Neutrophils # (Auto) 5.5 Lymphocytes # (Auto) 2.8 Monocytes # (Auto) 0.9 Eosinophils # (Auto) 0.1 Basophils # (Auto) 0.1 CBC Comment DIFF FINAL Differential Comment Blood Urea Nitrogen 4 Creatinine 0.52 Random Glucose 86 Total Protein 5.4 Albumin 2.4 Calcium Level 7.2 Phosphorus Level 1.2 Magnesium Level 1.8 Alkaline Phosphatase 63 Aspartate Amino Transf (AST/SGOT) 80 Alanine Aminotransferase (ALT/SGPT) 30 Total Bilirubin 0.3 Sodium Level 141 Potassium Level 2.9 Chloride Level 105 Carbon Dioxide Level 24.1 Anion Gap 12 Estimat Glomerular Filtration Rate 118 Protein Corrected Calcium 8.1 Radiology Last Impressions Abdomen/Pelvis CT 12/15/17 0000 Signed Impressions: CONCLUSION: 1. Status post abdominal surgery with 2 anastomosis suture seen in the right m id and lower abdomen. 2. Mildly dilated proximal small bowel with distal small bowel being decompres sed. Some focal ileus versus partial obstruction could've this appearance. Oral contrast is clearly seen within the rectum ruling out a complete obstruction. 3. Suspected postoperative induration in the mesentery around the anastomotic suture regions and a small amount of free fluid in the mesentery. No abscess is seen. 4. Bilateral pleural effusions being greater on the right. 5. Mild hepatic steatosis. 6. 2.4 cm Left adrenal gland mass. Abdomen X-Ray 12/13/17 1000 Signed Impressions: CONCLUSION: Probable mild postop ileus. Head CT 12/11/17 0000 Signed Impressions: CONCLUSION: 1. No acute intracranial hemorrhage. 2. Chronic bilateral white matter changes. Chest X-Ray 12/08/17 1621 Signed Impressions: CONCLUSION: No acute cardiopulmonary disease. Cardiovascular: Regular Abdomen: Other, Post-op tenderness Extremities: SCD's on Wound Wound : Wound Location: Abdomen Drainage: Clear Dressing: Dry A/P Problem List: (1) S/P exploratory laparotomy ICD Codes: Z98.890 - Other specified postprocedural states Status: Acute (2) Postoperative nausea ICD Codes: R11.0 - Nausea; Z98.890 - Other specified postprocedural states Status: Acute (3) Small bowel obstruction ICD Codes: K56.609 - Unspecified intestinal obstruction, unspecified as to partial versus complete obstruction Status: Acute (4) Hypokalemia ICD Codes: E87.6 - Hypokalemia Status: Acute (5) 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 Hypokalemia We will plan medication for hypokalemia and postop nausea Has a small amount of drainage from the wound which we will treat conservative at this point She would like to restart her trazodone Attending Statement NOTE FOR SURGICAL ATTENDING, DR. EDOUARD CARTER I attest that I had a [id number] encounter with the patient on the same day, and personally performed and documented my assessment and findings in the medical record. The following services were provided during this hospital visit: Chart data review, vital sign assessments/reviewing monitor data Review of consultations notes if present. Medication orders/review and/or management Ordering and/or reviewing lab tests Ordering and/or interpreting/reviewing x-rays and/or diagnostic studies Care of the patient and discussion of the patient with the care team Documentation time To help prompt me to consider important information that might be impacting today's encounter and assessment, Information from prior notes written by myself or my colleagues may have been "brought forward/copy and pasted" into today's note. Problem Qualifiers (1) Hypothyroidism: Qualified Codes: E03.9 - Hypothyroidism, unspecified Edouard Carter MD Dec 16, 2017 11:20
[2017-12-16 12:00] VITALS: BP 168/77; PULSE 67; RESP 17; TEMP 97.8; O2SAT 97
[2017-12-16] MEDS: RESP: ALBUTEROL 2.5 MG/IPRATROPIUM 0.5 MG NEB (PRN) NEB (13:32)
[2017-12-16 13:36] VITALS: O2SAT 96
[2017-12-16 16:00] VITALS: BP 165/74; PULSE 68; RESP 16; TEMP 97.7; O2SAT 97
[2017-12-16] MEDS: HYDROmorphone HCL PF 0.5 MG/0.5 ML SYRINGE IV PRN (19:01)
[2017-12-16 20:00] VITALS: BP 158/73; PULSE 70; RESP 20; TEMP 98.6; O2SAT 98
[2017-12-16] MEDS: traZODone HCL 100 MG TAB PO SCH ×2 (21:00→21:41)
[2017-12-17] MEDS: metroNIDAZOLE 500 MG INJ 100 ML IV SCH ×3 (00:50→14:50)
[2017-12-17] MEDS: ONDANSETRON ODT 4 MG TAB SL PRN ×3 (00:58→18:04)
[2017-12-17] MEDS: RESP: ALBUTEROL 2.5 MG/IPRATROPIUM 0.5 MG NEB (PRN) NEB (00:59)
[2017-12-17] MEDS: ACETAMINOPHEN 1000 MG/100 ML 100 ML IV SCH ×4 (03:28→21:30)
[2017-12-17] MEDS: SODIUM CHLOR 0.9% 1000 ML INJ 1,000 ML IV SCH ×2 (03:28→13:11)
[2017-12-17] MEDS: HYDROmorphone HCL PF 0.5 MG/0.5 ML SYRINGE IV PRN ×5 (03:28→21:30)
[2017-12-17] MEDS: LEVOTHYROXINE SODIUM 112 MCG TAB PO SCH (06:05)
[2017-12-17 06:52] LABS: BICARBONATE 24.6 MEQ/L (21.0-32.0); CALCIUM 7.3 MG/DL (8.5-10.1); CREATININE 0.52 MG/DL (0.50-1.00); MAGNESIUM 1.8 MG/DL (1.5-2.5)
[2017-12-17 07:04] LABS: TOTAL PROTEIN 5.8 GM/DL (6.4-8.2)
[2017-12-17] MEDS: LORATADINE 10 MG TAB PO SCH (08:35)
[2017-12-17] MEDS: ESTRADIOL 1 MG TAB PO SCH (08:35)
[2017-12-17] MEDS: ENOXAPARIN SODIUM 40 MG/0.4 ML SYRINGE SQ SCH (08:35)
[2017-12-17] MEDS: SODIUM CHLORIDE 0.9% FLUSH 10 ML FLUSH IV FLUSH SCH ×2 (08:38→21:00)
[2017-12-17 08:43] VITALS: BP 147/74; PULSE 81; RESP 20; TEMP 98; O2SAT 93
[2017-12-17 09:50] VITALS: O2SAT 94
[2017-12-17] MEDS ORDERED: POTASSIUM CHLOR 40 MEQ PREMIX 100 ML IV SCH (10:00)
[2017-12-17] MEDS: ceFAZolin 2 GM PREMIX 50 ML IV SCH ×3 (10:53→22:52)
[2017-12-17 10:57] VITALS: BP 145/74; PULSE 77; RESP 18; TEMP 97.8; O2SAT 94
[2017-12-17] MEDS: POTASSIUM CHLOR 20 MEQ PREMIX 100 ML IV SCH ×2 (11:06→13:11)
--- NOTE | 2017-12-17 12:00 | HHI.PR ---
Subjective Remarks 6-6Poor oral intake still not eating much Physical therapy and Occupational Therapy A.m. labs 6-7 STILL NOT EATING MUCH OUT OF CONCERN OF PRESERVATIVES AND MSG IN FOODS DW RN AND PT AND CM ACCESS PORT PT AND OT AM LABS INCREASE DIET 6-8 TO HAVE CAT SCAN OF ABDOMEN TODAY REPLACE POTASSIUM THAT IS LOW NOT CLEARED BY SURGERY FOR DISCHARGE AM LABS NOT TRYING TO DO ADLS 6-9 CAT SCAN SHOWED PARTIAL SBO WANTS SOMETHING FOR SORE THROAT - WILL TRY LIDOCAINE DW RN AND PT AND CM AM LABS WILL NEED SNF ONCE CLEARED BY SURGERY REPLACE POTASSIUM VIA IV 6-10 WILL REPLACE POTASSIUM AGAIN UP AND MOVING AROUND BETTER WITH WALKER HAD BM TODAY DW RN AND PT AND CM Objective Vitals Vital Signs Date Time Temp Pulse Resp B/P (MAP) Pulse Ox O2 Delivery O2 Flow Rate FiO2 12/17/17 10:57 97.8 77 18 145/74 (97) 94 12/17/17 10:13 20 12/17/17 08:43 98.0 81 20 147/74 (98) 93 12/16/17 20:55 21 12/16/17 20:00 98.6 70 20 158/73 (101) 98 12/16/17 16:56 16 12/16/17 16:00 97.7 68 16 165/74 (104) 97 12/16/17 13:36 96 12/16/17 12:00 97.8 67 17 168/77 (107) 97 I/O 12/16/17 12/16/17 12/16/17 12/17/17 12/17/17 12/17/17 07:00 15:00 23:00 07:00 15:00 23:00 Intake Total 300 ml 200 ml Output Total 1200 ml Balance 300 ml -1000 ml Intake Oral 150 ml IV Total 150 ml 200 ml Output Urine Total 1200 ml # Voids 1 8 # Bowel Movements 1 8 Result Diagram: 12/16/17 0525 12/17/17 0600 Other Results Laboratory Tests Test 12/15/17 10:45 12/16/17 05:25 12/17/17 06:00 White Blood Count 9.8 TH/MM3 9.5 TH/MM3 Red Blood Count 4.29 MIL/MM3 3.83 MIL/MM3 Hemoglobin 12.4 GM/DL 11.3 GM/DL Hematocrit 36.7 % 32.9 % Mean Corpuscular Volume 85.5 FL 86.1 FL Mean Corpuscular Hemoglobin 28.8 PG 29.7 PG Mean Corpuscular Hemoglobin Concent 33.7 % 34.5 % Red Cell Distribution Width 13.9 % 14.0 % Platelet Count 275 TH/MM3 272 TH/MM3 Mean Platelet Volume 9.3 FL 9.2 FL Neutrophils (%) (Auto) 66.8 % 58.3 % Lymphocytes (%) (Auto) 23.4 % 29.7 % Monocytes (%) (Auto) 8.4 % 9.6 % Eosinophils (%) (Auto) 1.0 % 1.4 % Basophils (%) (Auto) 0.4 % 1.0 % Neutrophils # (Auto) 6.5 TH/MM3 5.5 TH/MM3 Lymphocytes # (Auto) 2.3 TH/MM3 2.8 TH/MM3 Monocytes # (Auto) 0.8 TH/MM3 0.9 TH/MM3 Eosinophils # (Auto) 0.1 TH/MM3 0.1 TH/MM3 Basophils # (Auto) 0.0 TH/MM3 0.1 TH/MM3 CBC Comment DIFF FINAL DIFF FINAL Differential Comment Blood Urea Nitrogen 4 MG/DL 4 MG/DL 3 MG/DL Creatinine 0.52 MG/DL 0.52 MG/DL 0.52 MG/DL Random Glucose 100 MG/DL 86 MG/DL 90 MG/DL Total Protein 6.1 GM/DL 5.4 GM/DL 5.8 GM/DL Albumin 2.6 GM/DL 2.4 GM/DL Calcium Level 8.0 MG/DL 7.2 MG/DL 7.3 MG/DL Phosphorus Level 0.9 MG/DL 1.2 MG/DL Magnesium Level 1.9 MG/DL 1.8 MG/DL 1.8 MG/DL Alkaline Phosphatase 67 U/L 63 U/L Aspartate Amino Transf (AST/SGOT) 57 U/L 80 U/L Alanine Aminotransferase (ALT/SGPT) 21 U/L 30 U/L Total Bilirubin 0.3 MG/DL 0.3 MG/DL Sodium Level 142 MEQ/L 141 MEQ/L 141 MEQ/L Potassium Level 2.7 MEQ/L 2.9 MEQ/L 3.2 MEQ/L Chloride Level 105 MEQ/L 105 MEQ/L 105 MEQ/L Carbon Dioxide Level 22.6 MEQ/L 24.1 MEQ/L 24.6 MEQ/L Anion Gap 14 MEQ/L 12 MEQ/L 11 MEQ/L Estimat Glomerular Filtration Rate 118 ML/MIN 118 ML/MIN 118 ML/MIN Protein Corrected Calcium 8.1 MG/DL 8.0 MG/DL Imaging Last Impressions Abdomen/Pelvis CT 12/15/17 0000 Signed Impressions: CONCLUSION: 1. Status post abdominal surgery with 2 anastomosis suture seen in the right m id and lower abdomen. 2. Mildly dilated proximal small bowel with distal small bowel being decompres sed. Some focal ileus versus partial obstruction could've this appearance. Oral contrast is clearly seen within the rectum ruling out a complete obstruction. 3. Suspected postoperative induration in the mesentery around the anastomotic suture regions and a small amount of free fluid in the mesentery. No abscess is seen. 4. Bilateral pleural effusions being greater on the right. 5. Mild hepatic steatosis. 6. 2.4 cm Left adrenal gland mass. Abdomen X-Ray 12/13/17 1000 Signed Impressions: CONCLUSION: Probable mild postop ileus. Head CT 12/11/17 0000 Signed Impressions: CONCLUSION: 1. No acute intracranial hemorrhage. 2. Chronic bilateral white matter changes. Chest X-Ray 12/08/17 1621 Signed Impressions: CONCLUSION: No acute cardiopulmonary disease. Objective Remarks GENERAL: Awake alert and oriented 3 talkative and cooperative SKIN: Warm and dry. HEAD: Atraumatic. Normocephalic. EYES: Pupils equal and round. No scleral icterus. No injection or drainage. ENT: No nasal bleeding or discharge. Mucous membranes pink and moist. NECK: Trachea midline. No JVD. CARDIOVASCULAR: Regular rate and rhythm. S1, S2 NO S3 OR S4 NO HEAVE OR THRILL OR RUB RESPIRATORY: No accessory muscle use. Clear to auscultation. Breath sounds equal bilaterally. GASTROINTESTINAL: Abdomen soft, non-tender, nondistended. Hepatic and splenic margins not palpable. Obese LESS DISTENDED MUSCULOSKELETAL: Extremities without clubbing, cyanosis, or edema. No obvious deformities. NEUROLOGICAL: Awake and alert. No obvious cranial nerve deficits. Motor grossly within normal limits. 4 out of 5 muscle strength in the arms and legs. Normal speech. PSYCHIATRIC: Appropriate mood and affect; insight and judgment normal. Procedures 12/10/2017 PREOPERATIVE DIAGNOSIS: Small bowel obstruction, adhesions. 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 SURGEON: Yuan ePrez MD POCKET CLOSER: CRC PROCEDURE PERFORMED: 1. Diagnostic laparoscopy. 2. Laparoscopic converted to open abdominal, lysis of adhesions, greater than 60 minutes. 3. Small bowel resection x 2. Medications and IVs Current Medications Sodium Chloride (NS Flush) 2 ml UNSCH PRN IVF FLUSH AFTER USING IV ACCESS Last administered on 12/08/17 19:48; Start 12/08/17 at 16:30; Stop 12/09/17 at 03:03; Status DC Sodium Chloride 500 ml @ 500 mls/hr ONCE ONCE IV Last administered on at 16:52; Start 12/08/17 at 16:30; Stop 12/08/17 at 17:29; Status DC Promethazine HCl (Phenergan Inj) 25 mg ONCE ONCE IM Last administered on 16:52; Start 12/08/17 at 16:30; Stop 12/08/17 at 16:31; Status DC Lorazepam (Ativan Inj) 1 mg ONCE ONCE IV PUSH Last administered on 12/08/17at 17 :49; Start 12/08/17 at 17:45; Stop 12/08/17 at 17:46; Status DC Iohexol (Omnipaque 350 Inj) 90 ml STK-MED ONCE IVCONTRAST Last administered on 12/08/17at 18:11; Start 12/08/17 at 18:11; Stop 12/08/17 at 18:12; Status DC Ketorolac Tromethamine (Toradol Inj) 30 mg ONCE ONCE IV PUSH Last administered on 12/08/17 19:48; Start 12/08/17 at 19:45; Stop 12/08/17 at 19:46; Status DC Sodium Chloride 1,000 ml @ 100 mls/hr Q10H IV Last administered on 12/17/17at 03:28; Start 12/08/17 at 20:12 Sodium Chloride (NS Flush) 2 ml UNSCH PRN IV FLUSH FLUSH AFTER USING IV ACCESS ; Start 12/08/17 at 20:15 Sodium Chloride (NS Flush) 2 ml BID IV FLUSH Last administered on 12/16/17at 09: 21; Start 12/08/17 at 21:00 Naloxone HCl (Narcan Inj) 0.4 mg UNSCH PRN IV PUSH SEE LABEL COMMENTS Last administered on 6/4/18at 04:04; Start 12/08/17 at 20:15 Metoclopramide HCl (Reglan Inj) 5 mg Q8H PRN IV PUSH nausea Last administered on 12/14/17at 20:20; Start 12/08/17 at 20:15 Estradiol (Estradiol) 0.5 mg DAILY PO Last administered on 12/17/17at 08:35; Start 12/09/17 at 09:00 Levothyroxine Sodium (Synthroid) 112 mcg DAILY@0600 PO Last administered on 04/26at 06:05; Start 12/09/17 at 06:00 Loratadine (Claritin) 10 mg DAILY PO Last administered on 12/17/17 08:35; Start 12/09/17 at 09:00 Non-Formulary Medication 25 mg DAILY PO ; Start 12/09/17 at 09:00; Status UNV Trazodone HCl (Desyrel) 100 mg HS PO Last administered on 12/15/17at 21:02; Start 12/09/17 at 21:00 Morphine Sulfate (Morphine Inj) 2 mg Q3H PRN IV pain>5 Last administered on 12/09at 08:05; Start 12/09/17 at 02:30; Stop 12/09/17 at 10:33; Status DC Trazodone HCl (Desyrel) 100 mg ONCE ONCE PO Last administered on 12/09/17at 03: 11; Start 12/09/17 at 03:00; Stop 12/09/17 at 03:02; Status DC Hydromorphone HCl (Dilaudid Pf Inj) 1 mg Q3H PRN IV PAIN SCALE 6 TO 10 Last administered on 12/11/17at 01:03; Start 12/09/17 at 11:00; Stop 12/11/17 at 06:53; Status DC Sodium Chloride 500 ml @ 30 mls/hr [id number] PRN IV SEE LABEL COMMENTS; Start 12/10/17 at 00:15; Stop 12/10/17 at 20:05; Status DC Bupivacaine HCl/ Epinephrine Bitart (Sensorcaine-Epinephrine Pf 0.5% Inj) 30 ml STK-MED ONCE .ROUTE ; Start 12/10/17 at 15:04; Stop 12/10/17 at 15:05; Status DC Acetaminophen 100 ml @ As Directed STK-MED ONCE IV ; Start 12/10/17 at 16:02; Stop 12/10/17 at 16:03; Status DC Metronidazole 100 ml @ As Directed STK-MED ONCE IV Last administered on at 16:34; Start 12/10/17 at 16:17; Stop 12/10/17 at 16:18; Status DC Cefazolin Sodium/ Dextrose 50 ml @ As Directed STK-MED ONCE .ROUTE Last administered on 12/10/17at 16:28; Start 12/10/17 at 16:17; Stop 12/10/17 at 16:18; Status DC Fentanyl Citrate (fentaNYL INJ) 100 mcg STK-MED ONCE .ROUTE ; Start 12/10/17 at 18:50; Stop 12/10/17 at 18:51; Status DC Cefazolin Sodium/ Dextrose 50 ml @ 100 mls/hr Q8H IV Last administered on 12/17at 10:53; Start 12/11/17 at 00:00 Metronidazole 100 ml @ 100 mls/hr Q8H IV Last administered on 12/17/17at 08:37 ; Start 12/11/17 at 00:00 Sugammadex Sodium (Bridion Inj) 200 mg STK-MED ONCE IV PUSH ; Start 12/10/17 at 19:40; Stop 12/10/17 at 19:41; Status DC Midazolam HCl (Versed Inj) 2 mg STK-MED ONCE .ROUTE ; Start 12/10/17 at 19:59; Stop 12/10/17 at 20:00; Status DC Fentanyl Citrate (fentaNYL INJ) 300 mcg STK-MED ONCE .ROUTE ; Start 12/10/17 at 20:00; Stop 12/10/17 at 20:01; Status DC Meperidine HCl (*DEMEROL INJ PERIprocedural ONLY) 25 mg STK-MED ONCE .ROUTE Last administered on 12/10/17at 20:04; Start 12/10/17 at 20:01; Stop 12/10/17 at 20: 02; Status DC Miscellaneous Information ([facility] Nursing Information) ALL NURSING DEPARTME... UNSCH PRN .XX SEE LABEL COMMENTS; Start 12/10/17 at 20:15; Stop 12/11/17 at 20:14 ; Status DC Hydromorphone HCl (*DILAUDID PF INJ PERIprocedure ONLY) 0.5 mg STK-MED ONCE .ROUTE Last administered on 12/10/17at 20:13; Start 12/10/17 at 20:12; Stop at 20:13; Status DC Hydromorphone HCl (*DILAUDID PF INJ PERIprocedure ONLY) 0.5 mg STK-MED ONCE .ROUTE Last administered on 12/10/17at 20:23; Start 12/10/17 at 20:21; Stop at 20:22; Status DC Hydromorphone HCl (*DILAUDID PF INJ PERIprocedure ONLY) 0.5 mg STK-MED ONCE .ROUTE Last administered on 12/10/17at 20:33; Start 12/10/17 at 20:31; Stop at 20:32; Status DC Hydromorphone HCl (*DILAUDID PF INJ PERIprocedure ONLY) 0.5 mg STK-MED ONCE .ROUTE Last administered on 12/10/17at 20:53; Start 12/10/17 at 20:51; Stop at 20:52; Status DC Hydromorphone HCl (*DILAUDID PF INJ PERIprocedure ONLY) 1 mg STK-MED ONCE .ROUTE ; Start 12/10/17 at 21:01; Stop 12/10/17 at 21:02; Status DC Hydromorphone HCl (Dilaudid Pf Inj) 1 mg NOW ONCE IV Last administered on at 21:05; Start 12/10/17 at 21:30; Stop 12/10/17 at 21:31; Status DC Hydromorphone HCl (Dilaudid Pf Inj) 1 mg ONCE ONCE IV ; Start 12/10/17 at 21:45 ; Stop 12/10/17 at 21:46; Status DC Albuterol/ Ipratropium (Duoneb Neb) 1 ampule Q4HR NEB PRN NEB SHORTNESS OF BREATH Last administered on 12/17/17at 00:59; Start 12/11/17 at 04:00 Hydromorphone HCl (Dilaudid Pf Inj) 0.5 mg Q3H PRN IV PAIN SCALE 6 TO 10 Last administered on 12/17/17at 08:35; Start 12/11/17 at 08:00 Acetaminophen 100 ml @ 400 mls/hr Q6H IV Last administered on 12/17/17at 03:28 ; Start 12/11/17 at 10:00 Ketorolac Tromethamine (Toradol Inj) 30 mg Q6HR IV PUSH Last administered on 12/16/17at 05:06; Start 12/11/17 at 12:00; Stop 12/16/17 at 11:59; Status DC Potassium Chloride (KCl) 30 meq ONCE ONCE PO Last administered on 12/11/17at 11: 47; Start 12/11/17 at 11:30; Stop 12/11/17 at 11:31; Status DC Ondansetron HCl (Zofran Odt) 4 mg Q6H PRN SL nausea Last administered on at 08:35; Start 12/12/17 at 01:15 Enoxaparin Sodium (Lovenox Inj) 40 mg Q24H SQ Last administered on 12/17/17at 08 :35; Start 12/12/17 at 10:00 Lidocaine HCl (Xylocaine-Mpf 1% Inj) 5 ml STK-MED ONCE OTHER ; Start 12/10/17 at 12:00; Stop 12/12/17 at 14:35; Status DC Rocuronium [place] (Zemuron Inj) 100 mg STK-MED ONCE IV PUSH ; Start 12/10/17 at 12:00; Stop 12/12/17 at 14:35; Status DC Neostigmine Methylsulfate (Prostigmine Inj) 5 mg STK-MED ONCE IV PUSH ; Start at 12:00; Stop 12/12/17 at 14:35; Status DC Glycopyrrolate (Robinul Inj) 1 mg STK-MED ONCE IV PUSH ; Start 12/10/17 at 12:00 ; Stop 12/12/17 at 14:35; Status DC Ephedrine Sulfate (ePHEDrine/NS 25 MG/5 ML SYR) 25 mg STK-MED ONCE IV ; Start at 12:00; Stop 12/12/17 at 14:35; Status DC Dexamethasone Sodium Phosphate (Decadron Inj) 4 mg STK-MED ONCE IV ; Start at 12:00; Stop 12/12/17 at 14:35; Status DC Ondansetron HCl (Zofran Inj) 4 mg STK-MED ONCE IV PUSH ; Start 12/10/17 at 12:00 ; Stop 12/12/17 at 14:35; Status DC Propofol (Diprivan 200 Mg/20 ml Inj) 400 mg STK-MED ONCE IV ; Start 12/10/17 at 12:00; Stop 12/12/17 at 14:35; Status DC Ondansetron HCl (Zofran Odt) 4 mg STK-MED ONCE PO ; Start 12/10/17 at 12:00; Stop 12/12/17 at 14:35; Status DC Lorazepam (Ativan Inj) 1 mg Q6H PRN IV PUSH ANXIETY Last administered on at 21:59; Start 12/13/17 at 10:00 Potassium Chloride 100 ml @ 50 mls/hr Q2H IV ; Start 12/13/17 at 15:00; Stop 12/13/17 at 15:04; Status DC Potassium Chloride (KCl) 80 meq ONCE ONCE PO Last administered on 12/13/17at 15: 27; Start 12/13/17 at 15:15; Stop 12/13/17 at 15:16; Status DC Diatrizoate Meglum/ Diatrizoate Sod ( Gastroview Liq) 18 ml ONCE ONCE PO Last administered on 12/15/17at 09:41; Start 12/15/17 at 09:15; Stop 12/15/17 at 09: 16; Status DC Ondansetron HCl (Zofran Odt) 4 mg NOW ONCE PO Last administered on 12/15/17at 11:23; Start 12/15/17 at 11:30; Stop 12/15/17 at 11:31; Status DC Potassium Chloride 100 ml @ 50 mls/hr Q2H IV Last administered on 12/15/17at 23: 15; Start 12/15/17 at 12:15; Stop 12/15/17 at 20:14; Status DC Iohexol (Omnipaque 350 Inj) 92 ml STK-MED ONCE IVCONTRAST Last administered on 12/15/17at 18:06; Start 12/15/17 at 18:06; Stop 12/15/17 at 18:07; Status DC Scopolamine (Transderm-Scop 1.5 Mg Patch.72 Hr) 1 patch Q3D T-DERMAL Last administered on 12/15/17at 21:05; Start 12/15/17 at 20:00 Promethazine HCl (Phenergan Supp) 12.5 mg Q6H PRN RECTAL nausea; Start 12/15/17 at 18:30 Miscellaneous Information 1 Q3D T-DERMAL ; Start 12/15/17 at 20:00 Potassium Chloride 100 ml @ 50 mls/hr Q2H IV ; Start 12/16/17 at 07:30; Stop 12/16/17 at 13:29; Status Cancel Potassium Chloride 100 ml @ 50 mls/hr Q2H IV Last administered on 12/16/17at 19: 01; Start 12/16/17 at 08:00; Stop 12/16/17 at 13:59; Status DC Potassium Chloride 100 ml @ 50 mls/hr Q2H IV Last administered on 12/16/17at 16: 51; Start 12/16/17 at 09:15; Stop 12/16/17 at 19:14; Status DC Lidocaine HCl (Xylocaine 2% Viscous) 15 ml Q4H PRN SWISH-SWAL SORE THROAT; Start 12/16/17 at 11:00 Potassium Chloride 100 ml @ 25 mls/hr Q4H IV ; Start 12/17/17 at 10:00; Stop at 10:00; Status DC Potassium Chloride 100 ml @ 50 mls/hr Q2H IV Last administered on 12/17/17at 11 :06; Start 12/17/17 at 10:00; Stop 12/17/17 at 13:59 A/P Problem List: (1) Small bowel obstruction ICD Code: K56.609 - Unspecified intestinal obstruction, unspecified as to partial versus complete obstruction Status: Acute (2) Hypothyroidism ICD Code: E03.9 - Hypothyroidism, unspecified Status: Chronic Assessment and Plan 67 y/o female with a history of immunocompromise, 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 SBO Abdominal CT reviewed and shows Abnormal bowel gas pattern with multiple loops of borderline dilated small bowel with air-fluid levels as well as a transition zone in the anterior lower abdomen. The small bowel past this point is decompressed as is the colon. This is of concern for early or partial small bowel obstruction. There is mild inflammatory change and there is ascitic fluid in the pelvis. -IVF -Pain management with IV morphine 6/ persistent small bowel obstruction status post diagnostic lap reported to expiratory laparotomy with lysis of adhesions, small bowel resection. -Started on Ofirmev Toradol added by general surgery. Agree with management. -Start on clear liquid diet 6/ management as per general surgery. Continue clear liquid diet, encourage out of bed, Hope discontinued. Encourage out of bed. I S and ambulation. TO HAVE CT OF ABDOMEN TODAY 12-15 CT SHOWS PARTIAL SBO ONLY HYPOKALEMIA- WILL REPLACE WITH IV SINCE NOT TOLERATING A PO DIET TODAY =-WILL REPLACE AGAIN AM LABS MULTIPLE FOOD TYPE ALLERGIES Hypothyroid, chronic -Continue Levothyroxine.. SORE THROAT VISCOUS LIDOCAINE DVT prophylaxis: SCDs, Lovenox started as per general surgery recommendations. Discharge Planning Continue to monitor in the medical floor. Discharge Planning Pending clearance by surgery still not ready for discharge WILL NEED SNF AT [facility] Problem Qualifiers (1) Hypothyroidism: Qualified Codes: E03.9 - Hypothyroidism, unspecified Marc Navarro DO Dec 17, 2017 11:59
--- NOTE | 2017-12-17 13:54 | HHI.PR ---
Subjective Subjective Notes Passing flatus, no BM yet Wants to know when she is going home Objective Vitals/I&O Vital Signs Date Time Temp Pulse Resp B/P (MAP) Pulse Ox O2 Delivery O2 Flow Rate FiO2 12/17/17 10:57 97.8 77 18 145/74 (97) 94 12/17/17 09:50 21 12/15/17 18:07 Nasal Cannula 2.00 Labs Laboratory Tests Test 12/17/17 06:00 Blood Urea Nitrogen 3 Creatinine 0.52 Random Glucose 90 Total Protein 5.8 Calcium Level 7.3 Magnesium Level 1.8 Sodium Level 141 Potassium Level 3.2 Chloride Level 105 Carbon Dioxide Level 24.6 Anion Gap 11 Estimat Glomerular Filtration Rate 118 Protein Corrected Calcium 8.0 Radiology Last Impressions Abdomen/Pelvis CT 12/15/17 0000 Signed Impressions: CONCLUSION: 1. Status post abdominal surgery with 2 anastomosis suture seen in the right m id and lower abdomen. 2. Mildly dilated proximal small bowel with distal small bowel being decompres sed. Some focal ileus versus partial obstruction could've this appearance. Oral contrast is clearly seen within the rectum ruling out a complete obstruction. 3. Suspected postoperative induration in the mesentery around the anastomotic suture regions and a small amount of free fluid in the mesentery. No abscess is seen. 4. Bilateral pleural effusions being greater on the right. 5. Mild hepatic steatosis. 6. 2.4 cm Left adrenal gland mass. Abdomen X-Ray 12/13/17 1000 Signed Impressions: CONCLUSION: Probable mild postop ileus. Head CT 12/11/17 0000 Signed Impressions: CONCLUSION: 1. No acute intracranial hemorrhage. 2. Chronic bilateral white matter changes. Chest X-Ray 12/08/17 1621 Signed Impressions: CONCLUSION: No acute cardiopulmonary disease. Abdomen: Non-distended, Non-tender Narrative Exam Moderate amount serous drainage on bandage; no purulence Minimal erythema around [place]; no cellulitis A/P Problem List: (1) S/P exploratory laparotomy ICD Codes: Z98.890 - Other specified postprocedural states Status: Acute (2) Postoperative nausea ICD Codes: R11.0 - Nausea; Z98.890 - Other specified postprocedural states Status: Acute (3) Small bowel obstruction ICD Codes: K56.609 - Unspecified intestinal obstruction, unspecified as to partial versus complete obstruction Status: Acute (4) Hypokalemia ICD Codes: E87.6 - Hypokalemia Status: Acute (5) 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 (postprocedural) (postinfection) Status: Chronic (6) Hypothyroidism ICD Codes: E03.9 - Hypothyroidism, unspecified Status: Chronic Assessment and Plan A/P Problem List: (1) S/P exploratory laparotomy ICD Codes: Z98.890 - Other specified postprocedural states Status: Acute (2) Postoperative nausea ICD Codes: R11.0 - Nausea; Z98.890 - Other specified postprocedural states Status: Acute (3) Small bowel obstruction ICD Codes: K56.609 - Unspecified intestinal obstruction, unspecified as to partial versus complete obstruction Status: Acute (4) Hypokalemia ICD Codes: E87.6 - Hypokalemia Status: Acute (5) 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 Hypokalemia; getting more K+ - boluses x 2 today Has drainage from the wound which we will continue to treat conservatively at this point Place band-aids over trocar sites; clothing catching on them Problem Qualifiers (1) Hypothyroidism: Qualified Codes: E03.9 - Hypothyroidism, unspecified Ihsan Talbot MD Dec 17, 2017 13:54
[2017-12-17 16:00] VITALS: BP 152/72; PULSE 77; RESP 16; TEMP 98.8; O2SAT 94
[2017-12-17 20:28] VITALS: BP 161/90; PULSE 78; RESP 18; TEMP 99.7; O2SAT 96
[2017-12-17 21:11] VITALS: O2SAT 96
[2017-12-17] MEDS: traZODone HCL 100 MG TAB PO SCH (21:31)
--- NOTE | 2017-12-17 21:57 | HHI.PR ---
Subjective Remarks NOT SEEN Objective Vitals Vital Signs Date Time Temp Pulse Resp B/P (MAP) Pulse Ox O2 Delivery O2 Flow Rate FiO2 12/17/17 21:11 96 21 12/17/17 20:28 99.7 78 18 161/90 (113) 96 12/17/17 18:38 20 12/17/17 16:00 98.8 77 16 152/72 (98) 94 12/17/17 10:57 97.8 77 18 145/74 (97) 94 12/17/17 09:50 94 21 12/17/17 08:43 98.0 81 20 147/74 (98) 93 I/O 12/16/17 12/16/17 12/16/17 12/17/17 12/17/17 12/17/17 07:00 15:00 23:00 07:00 15:00 23:00 Intake Total 300 ml 200 ml 500 ml Output Total 1200 ml 900 ml Balance 300 ml -1000 ml -400 ml Intake Oral 150 ml 500 ml IV Total 150 ml 200 ml Output Urine Total 1200 ml 900 ml # Voids 1 8 6 # Bowel Movements 1 8 1 Result Diagram: 12/16/17 0525 12/17/17 0600 Imaging Last Impressions Abdomen/Pelvis CT 12/15/17 0000 Signed Impressions: CONCLUSION: 1. Status post abdominal surgery with 2 anastomosis suture seen in the right m id and lower abdomen. 2. Mildly dilated proximal small bowel with distal small bowel being decompres sed. Some focal ileus versus partial obstruction could've this appearance. Oral contrast is clearly seen within the rectum ruling out a complete obstruction. 3. Suspected postoperative induration in the mesentery around the anastomotic suture regions and a small amount of free fluid in the mesentery. No abscess is seen. 4. Bilateral pleural effusions being greater on the right. 5. Mild hepatic steatosis. 6. 2.4 cm Left adrenal gland mass. Abdomen X-Ray 12/13/17 1000 Signed Impressions: CONCLUSION: Probable mild postop ileus. Head CT 12/11/17 0000 Signed Impressions: CONCLUSION: 1. No acute intracranial hemorrhage. 2. Chronic bilateral white matter changes. Chest X-Ray 12/08/17 1621 Signed Impressions: CONCLUSION: No acute cardiopulmonary disease. Objective Remarks GENERAL: Awake alert and oriented 3 talkative and cooperative SKIN: Warm and dry. HEAD: Atraumatic. Normocephalic. EYES: Pupils equal and round. No scleral icterus. No injection or drainage. ENT: No nasal bleeding or discharge. Mucous membranes pink and moist. NECK: Trachea midline. No JVD. CARDIOVASCULAR: Regular rate and rhythm. S1, S2 NO S3 OR S4 NO HEAVE OR THRILL OR RUB RESPIRATORY: No accessory muscle use. Clear to auscultation. Breath sounds equal bilaterally. GASTROINTESTINAL: Abdomen soft, non-tender, nondistended. Hepatic and splenic margins not palpable. Obese LESS DISTENDED MUSCULOSKELETAL: Extremities without clubbing, cyanosis, or edema. No obvious deformities. NEUROLOGICAL: Awake and alert. No obvious cranial nerve deficits. Motor grossly within normal limits. 4 out of 5 muscle strength in the arms and legs. Normal speech. PSYCHIATRIC: Appropriate mood and affect; insight and judgment normal. Procedures 1. Diagnostic laparoscopy. 2. Laparoscopic converted to open abdominal, lysis of adhesions, greater than 60 minutes. 3. Small bowel resection x 2. A/P Problem List: (1) Small bowel obstruction ICD Code: K56.609 - Unspecified intestinal obstruction, unspecified as to partial versus complete obstruction Status: Acute (2) Hypothyroidism ICD Code: E03.9 - Hypothyroidism, unspecified Status: Chronic Assessment and Plan 67 y/o female with a history of immunocompromise, 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 SBO Abdominal CT reviewed and shows Abnormal bowel gas pattern with multiple loops of borderline dilated small bowel with air-fluid levels as well as a transition zone in the anterior lower abdomen. The small bowel past this point is decompressed as is the colon. This is of concern for early or partial small bowel obstruction. There is mild inflammatory change and there is ascitic fluid in the pelvis. -IVF -Pain management with IV Dilaudid 6/4 persistent small bowel obstruction status post diagnostic lap reported to expiratory laparotomy with lysis of adhesions, small bowel resection. -Still on Ofirmev, IV Flagyl, Ancef and full liquid diet 6-9 CT SHOWS PARTIAL SBO ONLY HYPOKALEMIA- WILL REPLACE WITH IV SINCE NOT TOLERATING PO DIET TODAY =-WILL REPLACE AGAIN Hypothyroid, chronic -Continue Levothyroxine.. SORE THROAT VISCOUS LIDOCAINE DVT prophylaxis: SCDs, Lovenox Problem Qualifiers (1) Hypothyroidism: Qualified Codes: E03.9 - Hypothyroidism, unspecified Reggie Prado MD Dec 17, 2017 21:57
[2017-12-17] MEDS: NS + KCL 20 MEQ INJ 1,000 ML IV SCH (22:52)
[2017-12-18] MEDS: metroNIDAZOLE 500 MG INJ 100 ML IV SCH ×3 (00:06→14:53)
[2017-12-18 00:32] VITALS: BP 164/73; PULSE 77; RESP 16; TEMP 98.8; O2SAT 94
[2017-12-18] MEDS: ACETAMINOPHEN 1000 MG/100 ML 100 ML IV SCH ×2 (03:50→08:12)
[2017-12-18] MEDS: HYDROmorphone HCL PF 0.5 MG/0.5 ML SYRINGE IV PRN ×6 (03:50→21:19)
[2017-12-18] MEDS: LEVOTHYROXINE SODIUM 112 MCG TAB PO SCH (06:04)
[2017-12-18 06:26] LABS: AUTOMATED NEUTROPHIL # 7.1 TH/MM3 (1.8-7.7); BASOPHIL # 0.1 TH/MM3 (0-0.2); BASOPHIL % 0.4 % (0.0-2.0); EOSINOPHIL # 0.2 TH/MM3 (0-0.4); EOSINOPHIL % 1.4 % (0.0-4.0); HEMATOCRIT 37.6 % (35.0-46.0); HEMOGLOBIN 12.6 GM/DL (11.6-15.3); LYMPH % 29.2 % (9.0-44.0); LYMPHOCYTE # 3.5 TH/MM3 (1.0-4.8); MEAN CELL VOLUME 86.1 FL (80.0-100.0); MEAN CORPUSCULAR HEMOGLOBIN 28.8 PG (27.0-34.0); MEAN CORPUSCULAR HGB CONC 33.5 % (32.0-36.0); MEAN PLATELET VOLUME 8.4 FL (7.0-11.0); MONO % 9.8 % (0.0-8.0); MONOCYTE # 1.2 TH/MM3 (0-0.9); NEUT % 59.2 % (16.0-70.0); PLATELET COUNT 352 TH/MM3 (150-450); RED BLOOD COUNT 4.37 MIL/MM3 (4.00-5.30); RED CELL DISTRIBUTION WIDTH 14.5 % (11.6-17.2)
[2017-12-18 06:52] LABS: ALBUMIN 2.7 GM/DL (3.4-5.0); AST (GOT) 22 U/L (15-37); BICARBONATE 26.9 MEQ/L (21.0-32.0); BLOOD UREA NITROGEN 3 MG/DL (7-18); CALCIUM 7.6 MG/DL (8.5-10.1); CHLORIDE 104 MEQ/L (98-107); CREATININE 0.53 MG/DL (0.50-1.00); GLOMERULAR FILTRATION RATE 115 ML/MIN (>89); GLUCOSE,RANDOM 99 MG/DL (74-106); MAGNESIUM 1.8 MG/DL (1.5-2.5); SODIUM (NA) 140 MEQ/L (136-145)
[2017-12-18 06:54] LABS: ALT (GPT) 19 U/L (10-53)
[2017-12-18 06:59] LABS: ALKALINE PHOSPHATASE 66 U/L (45-117); PHOSPHORUS 2.3 MG/DL (2.5-4.9); TOTAL BILIRUBIN ADULT 0.4 MG/DL (0.2-1.0); TOTAL PROTEIN 5.8 GM/DL (6.4-8.2)
[2017-12-18 08:00] VITALS: BP 173/79; PULSE 71; RESP 20; TEMP 98.4; O2SAT 95
[2017-12-18] MEDS: LORATADINE 10 MG TAB PO SCH (08:12)
[2017-12-18] MEDS: ESTRADIOL 1 MG TAB PO SCH (08:12)
[2017-12-18] MEDS: ENOXAPARIN SODIUM 40 MG/0.4 ML SYRINGE SQ SCH (08:12)
[2017-12-18] MEDS: ceFAZolin 2 GM PREMIX 50 ML IV SCH ×2 (08:12→14:53)
[2017-12-18] MEDS: SODIUM CHLORIDE 0.9% FLUSH 10 ML FLUSH IV FLUSH SCH ×2 (08:21→21:00)
[2017-12-18] MEDS: NS + KCL 20 MEQ INJ 1,000 ML IV SCH (09:55)
[2017-12-18 10:06] VITALS: O2SAT 96
[2017-12-18 12:00] VITALS: BP 150/88; PULSE 68; RESP 16; TEMP 98.3; O2SAT 95
--- NOTE | 2017-12-18 12:45 | HHI.PR ---
Subjective Remarks Follow-up SBO. States she is feeling better out of bed. She passed gas 2. Requesting diet. Discussed with RN and general surgery Objective Vitals Vital Signs Date Time Temp Pulse Resp B/P (MAP) Pulse Ox O2 Delivery O2 Flow Rate FiO2 12/18/17 10:06 96 21 12/18/17 00:32 98.8 77 16 164/73 (103) 94 12/17/17 21:11 96 21 12/17/17 20:28 99.7 78 18 161/90 (113) 96 12/17/17 18:38 20 12/17/17 16:00 98.8 77 16 152/72 (98) 94 I/O 12/17/17 12/17/17 12/17/17 12/18/17 12/18/17 12/18/17 07:00 15:00 23:00 07:00 15:00 23:00 Intake Total 200 ml 600 ml 1410 ml 1200 ml Output Total 1200 ml 1300 ml Balance -1000 ml -700 ml 1410 ml 1200 ml Intake Oral 500 ml 580 ml IV Total 200 ml 100 ml 830 ml 1200 ml Output Urine Total 1200 ml 1300 ml # Voids 6 4 # Bowel Movements 1 1 Result Diagram: 12/18/17 0610 12/18/17 0610 Imaging Last Impressions Abdomen/Pelvis CT 12/15/17 0000 Signed Impressions: CONCLUSION: 1. Status post abdominal surgery with 2 anastomosis suture seen in the right m id and lower abdomen. 2. Mildly dilated proximal small bowel with distal small bowel being decompres sed. Some focal ileus versus partial obstruction could've this appearance. Oral contrast is clearly seen within the rectum ruling out a complete obstruction. 3. Suspected postoperative induration in the mesentery around the anastomotic suture regions and a small amount of free fluid in the mesentery. No abscess is seen. 4. Bilateral pleural effusions being greater on the right. 5. Mild hepatic steatosis. 6. 2.4 cm Left adrenal gland mass. Abdomen X-Ray 12/13/17 1000 Signed Impressions: CONCLUSION: Probable mild postop ileus. Head CT 12/11/17 0000 Signed Impressions: CONCLUSION: 1. No acute intracranial hemorrhage. 2. Chronic bilateral white matter changes. Chest X-Ray 12/08/17 1621 Signed Impressions: CONCLUSION: No acute cardiopulmonary disease. Objective Remarks GENERAL: Awake alert and oriented 3 SKIN: Warm and dry. CARDIOVASCULAR: Regular rate and rhythm. S1, S2 RESPIRATORY: No accessory muscle use. Clear to auscultation. Breath sounds equal bilaterally. GASTROINTESTINAL: Abdomen soft, nondistended. Dry dressing MUSCULOSKELETAL: Extremities without clubbing, cyanosis, or edema. No obvious deformities. NEUROLOGICAL: Awake and alert. No obvious cranial nerve deficits. Motor grossly within normal limits. 4 out of 5 muscle strength in the arms and legs. Normal speech. Procedures 1. Diagnostic laparoscopy. 2. Laparoscopic converted to open abdominal, lysis of adhesions, greater than 60 minutes. 3. Small bowel resection x 2. A/P Problem List: (1) Small bowel obstruction ICD Code: K56.609 - Unspecified intestinal obstruction, unspecified as to partial versus complete obstruction Status: Acute (2) Hypothyroidism ICD Code: E03.9 - Hypothyroidism, unspecified Status: Chronic Assessment and Plan 67 y/o female with a history of immunocompromised status, 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 SBO s/p laparotomy with lysis of adhesions, small bowel resection. Improving discussed with general surgery advanced diet change to p.o. Tylenol and continue IV Flagyl and Ancef secondary to immunocompromise status. -Still on Ofirmev, IV Flagyl, Ancef and full liquid diet Hypokalemia. Improving will replace with additional 30 mg p.o. 1 H Hypothyroid, chronic -Continue Levothyroxine.. Throat discomfort from intubation. Stable Mild AST elevation. Improved Slight BP elevation secondary to pain. Continue to monitor DVT prophylaxis: SCDs, Lovenox Discharge Planning Possible discharge in the morning Problem Qualifiers (1) Hypothyroidism: Qualified Codes: E03.9 - Hypothyroidism, unspecified Reggie Prado MD Dec 18, 2017 12:45
[2017-12-18] MEDS ORDERED: POTASSIUM CHLORIDE 10 MEQ CONTROLLED RELEASE TAB PO ONE (14:15)
--- NOTE | 2017-12-18 15:00 | HHI.PR ---
Subjective Subjective Notes Resting in bed "I'm starving!" Objective Vitals/I&O Vital Signs Date Time Temp Pulse Resp B/P (MAP) Pulse Ox O2 Delivery O2 Flow Rate FiO2 12/18/17 12:00 98.3 68 16 150/88 (108) 95 12/18/17 10:06 21 12/15/17 18:07 Nasal Cannula 2.00 Labs Laboratory Tests Test 12/18/17 06:10 White Blood Count 12.0 Red Blood Count 4.37 Hemoglobin 12.6 Hematocrit 37.6 Mean Corpuscular Volume 86.1 Mean Corpuscular Hemoglobin 28.8 Mean Corpuscular Hemoglobin Concent 33.5 Red Cell Distribution Width 14.5 Platelet Count 352 Mean Platelet Volume 8.4 Neutrophils (%) (Auto) 59.2 Lymphocytes (%) (Auto) 29.2 Monocytes (%) (Auto) 9.8 Eosinophils (%) (Auto) 1.4 Basophils (%) (Auto) 0.4 Neutrophils # (Auto) 7.1 Lymphocytes # (Auto) 3.5 Monocytes # (Auto) 1.2 Eosinophils # (Auto) 0.2 Basophils # (Auto) 0.1 CBC Comment DIFF FINAL Differential Comment Blood Urea Nitrogen 3 Creatinine 0.53 Random Glucose 99 Total Protein 5.8 Albumin 2.7 Calcium Level 7.6 Phosphorus Level 2.3 Magnesium Level 1.8 Alkaline Phosphatase 66 Aspartate Amino Transf (AST/SGOT) 22 Alanine Aminotransferase (ALT/SGPT) 19 Total Bilirubin 0.4 Sodium Level 140 Potassium Level 3.4 Chloride Level 104 Carbon Dioxide Level 26.9 Anion Gap 9 Estimat Glomerular Filtration Rate 115 Date/Time Source Procedure Growth Status 12/18/17 11:10 Wound Abdomen Gram Stain Pending Received 12/18/17 11:10 Wound Abdomen Wound Culture Pending Received Radiology Last Impressions Abdomen/Pelvis CT 12/15/17 0000 Signed Impressions: CONCLUSION: 1. Status post abdominal surgery with 2 anastomosis suture seen in the right m id and lower abdomen. 2. Mildly dilated proximal small bowel with distal small bowel being decompres sed. Some focal ileus versus partial obstruction could've this appearance. Oral contrast is clearly seen within the rectum ruling out a complete obstruction. 3. Suspected postoperative induration in the mesentery around the anastomotic suture regions and a small amount of free fluid in the mesentery. No abscess is seen. 4. Bilateral pleural effusions being greater on the right. 5. Mild hepatic steatosis. 6. 2.4 cm Left adrenal gland mass. Abdomen X-Ray 12/13/17 1000 Signed Impressions: CONCLUSION: Probable mild postop ileus. Head CT 12/11/17 0000 Signed Impressions: CONCLUSION: 1. No acute intracranial hemorrhage. 2. Chronic bilateral white matter changes. Chest X-Ray 12/08/17 1621 Signed Impressions: CONCLUSION: No acute cardiopulmonary disease. 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 I reviewed and agree with the findings presented. I attest that I had a [id number] encounter with the patient on the same day, and personally performed and documented my assessment and findings in the medical record. Problem Qualifiers (1) Hypothyroidism: Qualified Codes: E03.9 - Hypothyroidism, unspecified Radha Childers/[employer] Dec 18, 2017 15:00 Yuan Perez MD Dec 20, 2017 22:26
[2017-12-18] MEDS: ACETAMINOPHEN 325 MG TAB PO SCH ×2 (15:18→21:19)
[2017-12-18 16:00] VITALS: BP 172/83; PULSE 68; RESP 18; TEMP 98.3; O2SAT 96
[2017-12-18] MEDS: ONDANSETRON ODT 4 MG TAB SL PRN (18:20)
[2017-12-18 20:00] VITALS: BP 146/77; PULSE 74; RESP 18; TEMP 98.5; O2SAT 94
[2017-12-18] MEDS: REMOVE OLD SCOPOLAMINE PATCH T-DERMAL SCH (20:00)
[2017-12-18] MEDS: CEPHALEXIN MONOHYDRATE 500 MG CAP PO SCH (21:19)
[2017-12-18] MEDS: traZODone HCL 100 MG TAB PO SCH (21:21)
[2017-12-18] MEDS: metroNIDAZOLE 500 MG TAB PO SCH (21:21)
[2017-12-18] MEDS: SCOPOLAMINE 1.5 MG PATCH T-DERMAL SCH (21:23)
[2017-12-19] VITALS: BP 143/67; PULSE 75; RESP 18; TEMP 98; O2SAT 93
[2017-12-19] MEDS: NS + KCL 20 MEQ INJ 1,000 ML IV SCH ×2 (01:05→09:45)
[2017-12-19] MEDS: ACETAMINOPHEN 325 MG TAB PO SCH ×2 (04:40→08:18)
[2017-12-19] MEDS: HYDROmorphone HCL PF 0.5 MG/0.5 ML SYRINGE IV PRN ×2 (04:41→08:18)
[2017-12-19] MEDS: ONDANSETRON ODT 4 MG TAB SL PRN (04:46)
[2017-12-19] MEDS: metroNIDAZOLE 500 MG TAB PO SCH (06:12)
[2017-12-19] MEDS: CEPHALEXIN MONOHYDRATE 500 MG CAP PO SCH (06:13)
[2017-12-19] MEDS: LEVOTHYROXINE SODIUM 112 MCG TAB PO SCH (06:13)
[2017-12-19] MEDS: ESTRADIOL 1 MG TAB PO SCH (07:43)
[2017-12-19] MEDS: LORATADINE 10 MG TAB PO SCH (07:43)
[2017-12-19] MEDS: SODIUM CHLORIDE 0.9% FLUSH 10 ML FLUSH IV FLUSH SCH (07:44)
[2017-12-19] MEDS: ENOXAPARIN SODIUM 40 MG/0.4 ML SYRINGE SQ SCH (08:18)
--- NOTE | 2017-12-19 08:34 | HHI.PR ---
Subjective Remarks Follow-up SBO. Complains of heartburn but tolerating p.o. She is stooling with semi-formed stool. She wants to go to rehab Objective Vitals Vital Signs Date Time Temp Pulse Resp B/P (MAP) Pulse Ox O2 Delivery O2 Flow Rate FiO2 12/19/17 00:00 98.0 75 18 143/67 (92) 93 12/18/17 20:00 98.5 74 18 146/77 (100) 94 12/18/17 16:00 98.3 68 18 172/83 (112) 96 12/18/17 12:00 98.3 68 16 150/88 (108) 95 12/18/17 10:06 96 21 I/O 12/18/17 12/18/17 12/18/17 12/19/17 12/19/17 12/19/17 07:00 15:00 23:00 07:00 15:00 23:00 Intake Total 1410 ml 1300 ml 1343 ml 1000 ml Balance 1410 ml 1300 ml 1343 ml 1000 ml Intake Oral 580 ml 620 ml IV Total 830 ml 1300 ml 723 ml 1000 ml # Voids 4 4 4 # Bowel Movements 1 0 1 Result Diagram: 12/18/17 0610 12/18/17 0610 Imaging Last Impressions Abdomen/Pelvis CT 12/15/17 0000 Signed Impressions: CONCLUSION: 1. Status post abdominal surgery with 2 anastomosis suture seen in the right m id and lower abdomen. 2. Mildly dilated proximal small bowel with distal small bowel being decompres sed. Some focal ileus versus partial obstruction could've this appearance. Oral contrast is clearly seen within the rectum ruling out a complete obstruction. 3. Suspected postoperative induration in the mesentery around the anastomotic suture regions and a small amount of free fluid in the mesentery. No abscess is seen. 4. Bilateral pleural effusions being greater on the right. 5. Mild hepatic steatosis. 6. 2.4 cm Left adrenal gland mass. Abdomen X-Ray 12/13/17 1000 Signed Impressions: CONCLUSION: Probable mild postop ileus. Head CT 12/11/17 0000 Signed Impressions: CONCLUSION: 1. No acute intracranial hemorrhage. 2. Chronic bilateral white matter changes. Chest X-Ray 12/08/17 1621 Signed Impressions: CONCLUSION: No acute cardiopulmonary disease. Objective Remarks GENERAL: Awake alert and oriented 3 SKIN: Warm and dry. CARDIOVASCULAR: Regular rate and rhythm. S1, S2 RESPIRATORY: No accessory muscle use. Clear to auscultation. Breath sounds equal bilaterally. GASTROINTESTINAL: Abdomen soft, nondistended. Dry dressing MUSCULOSKELETAL: Extremities without clubbing, cyanosis, or edema. No obvious deformities. NEUROLOGICAL: Awake and alert. No obvious cranial nerve deficits. Motor grossly within normal limits. 4 out of 5 muscle strength in the arms and legs. Normal speech. Procedures 1. Diagnostic laparoscopy. 2. Laparoscopic converted to open abdominal, lysis of adhesions, greater than 60 minutes. 3. Small bowel resection x 2. A/P Problem List: (1) Small bowel obstruction ICD Code: K56.609 - Unspecified intestinal obstruction, unspecified as to partial versus complete obstruction Status: Acute (2) Hypothyroidism ICD Code: E03.9 - Hypothyroidism, unspecified Status: Chronic Assessment and Plan 67 y/o female with a history of immunocompromised status, 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 SBO s/p laparotomy with lysis of adhesions, small bowel resection. Improving discussed with general surgery advanced diet and continue Flagyl and keflex. Pain management with Dilaudid counseled regarding narcotics Hypokalemia. Improving status post replacement Hypothyroid, chronic -Continue Levothyroxine.. Throat discomfort from intubation. Stable Mild AST elevation. Improved Slight BP elevation secondary to pain. Continue to monitor DVT prophylaxis: SCDs, Lovenox Discharge Planning Possible discharge today when cleared by general surgery Problem Qualifiers (1) Hypothyroidism: Qualified Codes: E03.9 - Hypothyroidism, unspecified Reggie Prado MD Dec 19, 2017 08:34
--- NOTE | 2017-12-19 08:36 | HHI.DCPOC ---
Discharge Care Plan Diagnosis: (1) Small bowel obstruction Your Health Problems Are: Difficulty with ADL Exercise Tolerance Goals to Promote Your Health * To prevent worsening of your condition and complications * To maintain your health at the optimal level Directions to Meet Your Goals Take your medications as prescribed Follow your dietary instruction Follow activity as directed Keep your appointments as scheduled Take your immunizations and boosters as scheduled If your symptoms worsen call your PCP, if no PCP go to Urgent Care Center or Emergency Room Smoking is Dangerous to Your Health. Avoid second hand smoke Call the 24-hour hour crisis hotline for domestic abuse at Reggie Prado MD Dec 19, 2017 08:36
[2017-12-19] MEDS ORDERED: DILA2TAB4 PO (10:19)
[2017-12-19] MEDS ORDERED: FAMO1TAB37 PO (10:21)
--- NOTE | 2017-12-19 10:22 | HHI.DS ---
Discharge Summary Admission Date Dec 08, 2017 at 20:20 Discharge Date: Dec 19, 2017 Admitting Diagnosis Small Bowel Obstruction. (1) Small bowel obstruction ICD Code: K56.609 - Unspecified intestinal obstruction, unspecified as to partial versus complete obstruction Diagnosis: Principal Status: Acute (2) Hypothyroidism ICD Code: E03.9 - Hypothyroidism, unspecified Diagnosis: Principal Status: Chronic Procedures 1. Diagnostic laparoscopy. 2. Laparoscopic converted to open abdominal, lysis of adhesions, greater than 60 minutes. 3. Small bowel resection x 2. Brief History - From Admission 67 y/o female with a history of hypothyroid, immunocompromise, 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 Patient states on she began to have sharp, abdominal pain, 9/10 throughout with no radiation and with nausea and vomiting. She did have a liquid BM this morning. Denies any chest pain or sob. CBC/BMP: 12/18/17 0610 12/18/17 0610 Significant Findings Laboratory Tests Test 12/17/17 06:00 12/18/17 06:10 Blood Urea Nitrogen 3 MG/DL (7-18) 3 MG/DL (7-18) Total Protein 5.8 GM/DL (6.4-8.2) 5.8 GM/DL (6.4-8.2) Calcium Level 7.3 MG/DL (8.5-10.1) 7.6 MG/DL (8.5-10.1) Potassium Level 3.2 MEQ/L (3.5-5.1) 3.4 MEQ/L (3.5-5.1) Protein Corrected Calcium 8.0 MG/DL (8.5-10.1) White Blood Count 12.0 TH/MM3 (4.0-11.0) Monocytes (%) (Auto) 9.8 % (0.0-8.0) Monocytes # (Auto) 1.2 TH/MM3 (0-0.9) Albumin 2.7 GM/DL (3.4-5.0) Phosphorus Level 2.3 MG/DL (2.5-4.9) Imaging Last Impressions Abdomen/Pelvis CT 12/15/17 0000 Signed Impressions: CONCLUSION: 1. Status post abdominal surgery with 2 anastomosis suture seen in the right m id and lower abdomen. 2. Mildly dilated proximal small bowel with distal small bowel being decompres sed. Some focal ileus versus partial obstruction could've this appearance. Oral contrast is clearly seen within the rectum ruling out a complete obstruction. 3. Suspected postoperative induration in the mesentery around the anastomotic suture regions and a small amount of free fluid in the mesentery. No abscess is seen. 4. Bilateral pleural effusions being greater on the right. 5. Mild hepatic steatosis. 6. 2.4 cm Left adrenal gland mass. Abdomen X-Ray 12/13/17 1000 Signed Impressions: CONCLUSION: Probable mild postop ileus. Head CT 12/11/17 0000 Signed Impressions: CONCLUSION: 1. No acute intracranial hemorrhage. 2. Chronic bilateral white matter changes. Chest X-Ray 12/08/17 1621 Signed Impressions: CONCLUSION: No acute cardiopulmonary disease. PE at Discharge GENERAL: Awake alert and oriented 3 SKIN: Warm and dry. CARDIOVASCULAR: Regular rate and rhythm. S1, S2 RESPIRATORY: No accessory muscle use. Clear to auscultation. Breath sounds equal bilaterally. GASTROINTESTINAL: Abdomen soft, nondistended. Dry dressing MUSCULOSKELETAL: Extremities without clubbing, cyanosis, or edema. No obvious deformities. NEUROLOGICAL: Awake and alert. No obvious cranial nerve deficits. Motor grossly within normal limits. 4 out of 5 muscle strength in the arms and legs. Normal speech. 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 SBO s/p laparotomy with lysis of adhesions, small bowel resection. Improving discussed with general surgery advanced diet and continue Flagyl and keflex. Pain management with Dilaudid counseled regarding narcotics Hypokalemia. Improving status post replacement Hypothyroid, chronic -Continue Levothyroxine.. Throat discomfort from intubation. Stable Mild AST elevation. Improved Slight BP elevation secondary to pain. Continue to monitor DVT prophylaxis: SCDs, Lovenox Pt Condition on Discharge: Stable Discharge Disposition: Discharge to SNF Discharge Time: > 30 minutes Discharge Instructions DIET: Follow Instructions for: Heart Healthy Diet Activities you can perform: Regular-No Restrictions Activities to Avoid: Driving Follow up Referrals: PCP Follow-up - 1 Week Surgical - 1 Week New Medications: Famotidine (Pepcid) 20 Mg Tab 20 MG PO BID for Manage Heartburn, #60 TAB 0 Refills Hydromorphone (Dilaudid) 2 Mg Tab 2 MG PO Q6H PRN for Pain Management, #12 TAB 0 Refills Continued Medications: Estradiol (Estradiol) 0.5 Mg Tab 0.5 MG PO DAILY for Estrogen Supplements, #30 TAB 0 Refills Guaifenesin (Mucinex) 1,200 Mg Tab.er.12h 1 TAB PO DAILY Immune Globulin (Human) Inj (Privigen Inj) 10 % Inj 30 % IMPLANT DIRECTED Levothyroxine (Synthroid) 112 Mcg Tab 112 MCG PO DAILY for Thyroid, #30 TAB 0 Refills Loratadine (Claritin) 10 Mg Cap 10 MG PO DAILY for Allergy Management, CAP 0 Refills Risedronate (Actonel) 5 Mg Tab 25 MG PO DAILY for Manage Osteoporosis, #30 TAB 0 Refills Trazodone (Trazodone) 100 Mg Tablet 100 MG PO HS for Control Depression, #30 TAB 0 Refills Triamcinolone Nasal (Nasacort Allergy 24Hr Nasal) 55 Mcg Spr 1 SPRAY EACH NARE DAILY for Allergies, #1 BOTTLE 0 Refills Reggie Prado MD Dec 19, 2017 10:22
--- NOTE | 2017-12-19 11:27 | HHI.PR ---
Subjective Subjective Notes Resting in bed Just back from bathroom Glad she found her yogurt her family brought in for her Objective Vitals/I&O Vital Signs Date Time Temp Pulse Resp B/P (MAP) Pulse Ox O2 Delivery O2 Flow Rate FiO2 12/19/17 00:00 98.0 75 18 143/67 (92) 93 12/18/17 10:06 21 12/15/17 18:07 Nasal Cannula 2.00 Labs Date/Time Source Procedure Growth Status 12/18/17 11:10 Wound Abdomen Gram Stain - Final Resulted 12/18/17 11:10 Wound Abdomen Wound Culture Pending Resulted Radiology Last Impressions Abdomen/Pelvis CT 12/15/17 0000 Signed Impressions: CONCLUSION: 1. Status post abdominal surgery with 2 anastomosis suture seen in the right m id and lower abdomen. 2. Mildly dilated proximal small bowel with distal small bowel being decompres sed. Some focal ileus versus partial obstruction could've this appearance. Oral contrast is clearly seen within the rectum ruling out a complete obstruction. 3. Suspected postoperative induration in the mesentery around the anastomotic suture regions and a small amount of free fluid in the mesentery. No abscess is seen. 4. Bilateral pleural effusions being greater on the right. 5. Mild hepatic steatosis. 6. 2.4 cm Left adrenal gland mass. Abdomen X-Ray 12/13/17 1000 Signed Impressions: CONCLUSION: Probable mild postop ileus. Head CT 12/11/17 0000 Signed Impressions: CONCLUSION: 1. No acute intracranial hemorrhage. 2. Chronic bilateral white matter changes. Chest X-Ray 12/08/17 1621 Signed Impressions: CONCLUSION: No acute cardiopulmonary disease. Cardiovascular: Regular Lungs: Clear Abdomen: Other (Midline incision with [place]--- open area re-packed ) Extremities: No edema A/P Problem List: (1) S/P exploratory laparotomy ICD Codes: Z98.890 - Other specified postprocedural states Status: Acute (2) Postoperative nausea ICD Codes: R11.0 - Nausea; Z98.890 - Other specified postprocedural states Status: Acute (3) Small bowel obstruction ICD Codes: K56.609 - Unspecified intestinal obstruction, unspecified as to partial versus complete obstruction Status: Acute (4) Hypokalemia ICD Codes: E87.6 - Hypokalemia Status: Acute (5) 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 Perez Attending Statement patient seen at bedside ok to d/c to snf much improved f/u in 1 week Attestation The exam, history, and the medical decision-making described in the above note were completed with the assistance of the mid-level provider. I reviewed and agree with the findings presented. I attest that I had a [id number] encounter with the patient on the same day, and personally performed and documented my assessment and findings in the medical record. Problem Qualifiers (1) Hypothyroidism: Qualified Codes: E03.9 - Hypothyroidism, unspecified Radha Childers/[employer]enger [employer] PELON Dec 19, 2017 11:26 Yuan Perez MD Dec 20, 2017 22:51
[2017-12-19] MEDS ORDERED: CEPH500C PO (11:29)
[2017-12-19 12:18] VITALS: O2SAT 94
== END 2017-12-19 12:39 | DRG 330 ==
LOC: PHED 15:33 → PHEDA 20:20 → N07A 23:21
PROVIDERS: ADMIT Internal Medicine; ATTEND Internal Medicine
PROC: 0DBA0ZZ Excision of Jejunum, Open Approach (ICD-10-PCS; 2017-12-10)
PROC: 0DN80ZZ Release Small Intestine, Open Approach (ICD-10-PCS; 2017-12-10)
PROC: 0WJG4ZZ Inspection of Peritoneal Cavity, Percutaneous Endoscopic Approach (ICD-10-PCS; 2017-12-10)
PROC: 0DBB0ZZ Excision of Ileum, Open Approach (ICD-10-PCS; principal; 2017-12-10 16:16)
DX: K56.51 Intestinal adhesions [bands], with partial obstruction (principal); C85.10 Unspecified B-cell lymphoma, unspecified site; D80.8 Other immunodeficiencies with predominantly antibody defects; D89.89 Other specified disorders involving the immune mechanism, not elsewhere classified; I10 Essential (primary) hypertension; E03.9 Hypothyroidism, unspecified; E87.6 Hypokalemia; J45.909 Unspecified asthma, uncomplicated; K56.7 Ileus, unspecified; F41.9 Anxiety disorder, unspecified; J02.9 Acute pharyngitis, unspecified; Z85.6 Personal history of leukemia; Z53.31 Laparoscopic surgical procedure converted to open procedure
CPT/HCPCS: 70450; 71045; 74018; 74177; 80048; 80053; 81001; 82550; 82552; 83036; 83690; 83735; 84100; 84155; 84439; 84443; 84484; 85025; 85027; 85610; 87070; 87205; 88307; 93005; 94150; 94640; 94664; 99285; J0131; J0690; J1100; J1170; J1650; J1885; J2060; J2175; J2250; J2270; J2310; J2405; J2550; J2710; J2765; J3010; J3480; J7030; J7040; Q9963; Q9967

== ENCOUNTER 2017-12-31 12:38 | Emergency (ER) | payer MEDICARE ==
[~2017-12-31] VITALS: Ht 167.6 cm; Wt 120.0 kg
[~2017-12-31 12:38] MED LIST changes: +ACTO5TAB PO; +CEPH500C PO; +CLAR10CA3 PO; +DILA2TAB4 PO; +ESTR0.5T PO; -ESTR1.25; +FAMO1TAB37 PO; -FLUTI220I; +GUAI1TAB18 PO; +IVIG10P4 IMPLANT; +SYNT112T PO; -SYNT25TA; +TRAZ100T10 PO; -TRAZ300T2; +TRIA1SPR6 EACH NARE; -TRIA3AER
[2017-12-31 12:49] VITALS: BP 127/74; PULSE 79; RESP 18; TEMP 98.3; O2SAT 99
[2017-12-31] MEDS ORDERED: SODIUM CHLOR 0.9% 1000 ML INJ 1,000 ML IV SCH (12:51)
--- NOTE | 2017-12-31 12:51 | PD ---
HPI Chief Complaint: Abdominal Pain Time Seen by Provider: 12:50 Travel History International Travel<30 days: No Contact w/Intl Traveler<30days: No Traveled to known affect area: No History of Present Illness HPI 67-year-old female presents emergency department for evaluation of abdominal pain. Pain is primarily around her umbilicus but radiates to the right upper and lower quadrant. The pain started this morning after breakfast and has persisted throughout the day. Patient recently underwent bowel resection by Dr. Perez. She had a small bowel obstruction December 08. She is discharged from the hospital December 19. She has not yet followed up with Dr. Perez. She states she has been eating normally. She has had no fever or chills. She has been mildly nauseous at times. She denies any change in bowel habits. She denies any chest pain or tightness. She has no other symptoms to report at this time. PFSH Past Medical History Asthma: Yes Autoimmune Disease: Yes (GENERALIZED IMMUNE DIFFICIENCY, leukemia) Anxiety: Yes Cardiovascular Problems: Yes (HTN) Diminished Hearing: No Kidney Stones: Yes Musculoskeletal: Yes (degenrative spine) Neurologic: No Reproductive: No Respiratory: Yes Thyroid Disease: Yes ?: Not Past Surgical History Abdominal Surgery: Yes (lypoma and cyst removed) Hysterectomy: Yes Social History Alcohol Use: No Tobacco Use: No Substance Use: No Allergies-Medications (Allergen,Severity, Reaction): Coded Allergies: morphine (Unverified Allergy, Mild, NAUSEA, 02/21/17) red dye (Verified Allergy, Unknown, "UTI"-IRRITATION, 12/12/17) Uncoded Allergies: NOVACAINE (Allergy, Severe, 08/05/06) Reported Meds & Prescriptions Reported Meds & Active Scripts Active Dilaudid (Hydromorphone HCl) 2 Mg Tab 2 Mg PO Q6H PRN Reported Actonel (Risedronate) 5 Mg Tab 5 Mg PO DAILY Omeprazole 20 Mg Tab 20 Mg PO DAILY Tylenol (Acetaminophen) 325 Mg Tab 325 Mg PO Q6H PRN Zofran (Ondansetron HCl) 4 Mg Tab 4 Mg PO Q8HR PRN Miralax Powder (Polyethylene Glycol 3350 Powder) 17 Gm Powd 17 Gm PO DAILY Mix and dissolve one measuring cap-ful (17 grams) in water or juice. Trazodone (Trazodone HCl) 100 Mg Tablet 100 Mg PO HS Mucinex (Guaifenesin) 1,200 Mg Tab.er.12h 1 Tab PO DAILY Nasacort Allergy 24Hr Nasal (Triamcinolone Nasal) 55 Mcg Spr 1 [place] EACH NARE DAILY Claritin (Loratadine) 10 Mg Cap 10 Mg PO DAILY Estradiol 0.5 Mg Tab 0.5 Mg PO DAILY Synthroid (Levothyroxine Sodium) 112 Mcg Tab 112 Mcg PO DAILY Privigen Inj (Immune Globulin) 10 % Inj 30 % IMPLANT DIRECTED Review of Systems Except as stated in HPI: all other systems reviewed are Neg Physical Exam Narrative GENERAL: Well-nourished female patient, appears nontoxic and without distress. SKIN: Focused skin assessment warm/dry. Midline abdominal incision, well approximated. Mild erythema outlining the incision site otherwise no drainage. No induration. HEAD: Atraumatic. Normocephalic. EYES: Pupils equal and round. No scleral icterus. No injection or drainage. ENT: No nasal bleeding or discharge. Mucous membranes pink and moist. NECK: Trachea midline. No JVD. CARDIOVASCULAR: Regular rate and rhythm. No murmur appreciated. RESPIRATORY: No accessory muscle use. Clear to auscultation. Breath sounds equal bilaterally. GASTROINTESTINAL: Abdomen rotund, soft. Generalized tenderness to palpation, greater on the right than the left. No guarding. No rebound tenderness. Normoactive bowel sounds.. Hepatic and splenic margins not palpable. MUSCULOSKELETAL: No obvious deformities. No clubbing. No cyanosis. No edema. NEUROLOGICAL: Awake and alert. No obvious cranial nerve deficits. Motor grossly within normal limits. Normal speech. PSYCHIATRIC: Appropriate mood and affect; insight and judgment normal. Data Data Last Documented VS Vital Signs Date Time Temp Pulse Resp B/P (MAP) Pulse Ox O2 Delivery O2 Flow Rate FiO2 12/31/17 18:04 12/31/17 14:17 18 12/31/17 12:53 97 Room Air 12/31/17 12:49 98.3 79 Orders Orders Complete Blood Count With Diff (12/31/17 12:51) Comprehensive Metabolic Panel (12/31/17 12:51) Lipase (12/31/17 12:51) Lactic Acid (12/31/17 12:51) Prothrombin Time / Inr (Pt) (12/31/17 12:51) Act Partial Throm Time (Ptt) (12/31/17 12:51) Urinalysis - C+S If Indicated (12/31/17 12:51) Ct Abd/Pel W Iv Contrast(Rout) (12/31/17 12:51) Iv Access Insert/Monitor (12/31/17 12:51) Ecg Monitoring (12/31/17 12:51) Oximetry (12/31/17 12:51) Sodium Chlor 0.9% 1000 Ml Inj (Ns 1000 M (12/31/17 12:51) Sodium Chloride 0.9% Flush (Ns Flush) (12/31/17 13:00) Abdomen, Upright Only (12/31/17 12:51) Ketorolac Inj (Toradol Inj) (12/31/17 13:00) Iohexol 350 Inj (Omnipaque 350 Inj) (12/31/17 14:00) Ed Discharge Order (12/31/17 16:42) Labs Laboratory Tests Test 12/31/17 13:00 12/31/17 13:05 White Blood Count 7.4 TH/MM3 Red Blood Count 4.69 MIL/MM3 Hemoglobin 13.5 GM/DL Hematocrit 40.5 % Mean Corpuscular Volume 86.5 FL Mean Corpuscular Hemoglobin 28.8 PG Mean Corpuscular Hemoglobin Concent 33.3 % Red Cell Distribution Width 14.3 % Platelet Count 412 TH/MM3 Mean Platelet Volume 8.8 FL Neutrophils (%) (Auto) 57.8 % Lymphocytes (%) (Auto) 33.0 % Monocytes (%) (Auto) 7.9 % Eosinophils (%) (Auto) 0.8 % Basophils (%) (Auto) 0.5 % Neutrophils # (Auto) 4.3 TH/MM3 Lymphocytes # (Auto) 2.5 TH/MM3 Monocytes # (Auto) 0.6 TH/MM3 Eosinophils # (Auto) 0.1 TH/MM3 Basophils # (Auto) 0.0 TH/MM3 CBC Comment DIFF FINAL Differential Comment Prothrombin Time 10.3 SEC Prothromb Time International Ratio 1.0 RATIO Activated Partial Thromboplast Time 37.1 SEC Urine Color Straw Urine Turbidity CLEAR Urine pH 8.0 Urine Specific [place] 1.004 Urine Protein NEG mg/dL Urine Glucose (UA) NEG mg/dL Urine Ketones NEG mg/dL Urine Occult Blood NEG Urine Nitrite NEG Urine Bilirubin NEG Urine Urobilinogen LESS THAN 2 mg/dL Urine Leukocyte Esterase NEG Urine RBC LESS THAN 1 /hpf Urine WBC LESS THAN 1 /hpf Urine Squamous Epithelial Cells <1 /hpf Microscopic Urinalysis Comment CATH-CULT NOT IND Blood Urea Nitrogen 11 MG/DL Creatinine 0.82 MG/DL Random Glucose 108 MG/DL Total Protein 6.5 GM/DL Albumin 3.2 GM/DL Calcium Level 8.8 MG/DL Alkaline Phosphatase 88 U/L Aspartate Amino Transf (AST/SGOT) 14 U/L Alanine Aminotransferase (ALT/SGPT) 18 U/L Total Bilirubin 0.3 MG/DL Sodium Level 141 MEQ/L Potassium Level 3.7 MEQ/L Chloride Level 105 MEQ/L Carbon Dioxide Level 28.5 MEQ/L Anion Gap 8 MEQ/L Estimat Glomerular Filtration Rate 70 ML/MIN Lipase 160 U/L Lactic Acid Level 0.9 mmol/L MDM Medical Decision Making Medical Screen Exam Complete: Yes Emergency Medical Condition: Yes Medical Record Reviewed: Yes Differential Diagnosis Postop pain versus colitis versus diverticulitis versus postop abscess versus obstruction Narrative Course 67-year-old female presents emergency department for evaluation of abdominal pain. Patient appears well. Her vital signs are stable. She has had generalized abdominal pain to palpation. The incision site appears to be healing well. I discussed the patient with my attending physician who is also assessed the patient. CT imaging and lab work is ordered. Patient is treated for pain. Laboratory Tests Test 12/31/17 13:00 12/31/17 13:05 White Blood Count 7.4 TH/MM3 Red Blood Count 4.69 MIL/MM3 Hemoglobin 13.5 GM/DL Hematocrit 40.5 % Mean Corpuscular Volume 86.5 FL Mean Corpuscular Hemoglobin 28.8 PG Mean Corpuscular Hemoglobin Concent 33.3 % Red Cell Distribution Width 14.3 % Platelet Count 412 TH/MM3 Mean Platelet Volume 8.8 FL Neutrophils (%) (Auto) 57.8 % Lymphocytes (%) (Auto) 33.0 % Monocytes (%) (Auto) 7.9 % Eosinophils (%) (Auto) 0.8 % Basophils (%) (Auto) 0.5 % Neutrophils # (Auto) 4.3 TH/MM3 Lymphocytes # (Auto) 2.5 TH/MM3 Monocytes # (Auto) 0.6 TH/MM3 Eosinophils # (Auto) 0.1 TH/MM3 Basophils # (Auto) 0.0 TH/MM3 CBC Comment DIFF FINAL Differential Comment Prothrombin Time 10.3 SEC Prothromb Time International Ratio 1.0 RATIO Activated Partial Thromboplast Time 37.1 SEC Urine Color Straw Urine Turbidity CLEAR Urine pH 8.0 Urine Specific [place] 1.004 Urine Protein NEG mg/dL Urine Glucose (UA) NEG mg/dL Urine Ketones NEG mg/dL Urine Occult Blood NEG Urine Nitrite NEG Urine Bilirubin NEG Urine Urobilinogen LESS THAN 2 mg/dL Urine Leukocyte Esterase NEG Urine RBC LESS THAN 1 /hpf Urine WBC LESS THAN 1 /hpf Urine Squamous Epithelial Cells <1 /hpf Microscopic Urinalysis Comment CATH-CULT NOT IND Blood Urea Nitrogen 11 MG/DL Creatinine 0.82 MG/DL Random Glucose 108 MG/DL Total Protein 6.5 GM/DL Albumin 3.2 GM/DL Calcium Level 8.8 MG/DL Alkaline Phosphatase 88 U/L Aspartate Amino Transf (AST/SGOT) 14 U/L Alanine Aminotransferase (ALT/SGPT) 18 U/L Total Bilirubin 0.3 MG/DL Sodium Level 141 MEQ/L Potassium Level 3.7 MEQ/L Chloride Level 105 MEQ/L Carbon Dioxide Level 28.5 MEQ/L Anion Gap 8 MEQ/L Estimat Glomerular Filtration Rate 70 ML/MIN Lipase 160 U/L Lactic Acid Level 0.9 mmol/L Last Impressions Abdomen/Pelvis CT 12/31/17 1251 Signed Impressions: CONCLUSION: 1. Postoperative changes of bowel and anastomosis as above. No obstruction, fr ee fluid or free air. No renal calculi or hydronephrosis. Stable left adrenal n odule. Abdomen X-Ray 12/31/17 1251 Signed Impressions: CONCLUSION: Nonobstructive bowel gas pattern. Findings are discussed with my attending physician. They have been reviewed with patient. Patient will be discharged back to the senior living facility. She is encouraged to follow-up with Dr. Perez her surgeon. She agrees to return immediately with acute worsening symptoms. Diagnosis Primary Impression: Abdominal pain Qualified Codes: R10.33 - Periumbilical pain Additional Impression: Post-op pain Referrals: Yuan Perez MD Primary Care Physician Patient Instructions: Abdominal Pain (ED), General Instructions Additional Instructions: Contact Dr. Perez for follow-up Continue all postop instructions Return immediately with acute worsening of symptoms Med/Other Pt SpecificInfo: No Change to Meds Disposition: 03 DISCHARGE TO SNF Condition: Stable Nabila [place] 24, 2018 12:50
[2017-12-31 12:53] VITALS: O2SAT 97
[2017-12-31] MEDS ORDERED: SODIUM CHLORIDE 0.9% FLUSH 10 ML FLUSH IV FLUSH PRN (13:00)
[2017-12-31] MEDS ORDERED: KETOROLAC TROMETHAMINE 30 MG/ML (IVP) VIAL IV PUSH ONE (13:00)
[2017-12-31 13:16] LABS: AUTOMATED NEUTROPHIL # 4.3 TH/MM3 (1.8-7.7); BASOPHIL % 0.5 % (0.0-2.0); EOSINOPHIL # 0.1 TH/MM3 (0-0.4); EOSINOPHIL % 0.8 % (0.0-4.0); HEMATOCRIT 40.5 % (35.0-46.0); HEMOGLOBIN 13.5 GM/DL (11.6-15.3); LYMPHOCYTE # 2.5 TH/MM3 (1.0-4.8); MEAN CELL VOLUME 86.5 FL (80.0-100.0); MEAN CORPUSCULAR HEMOGLOBIN 28.8 PG (27.0-34.0); MEAN CORPUSCULAR HGB CONC 33.3 % (32.0-36.0); MEAN PLATELET VOLUME 8.8 FL (7.0-11.0); MONO % 7.9 % (0.0-8.0); MONOCYTE # 0.6 TH/MM3 (0-0.9); NEUT % 57.8 % (16.0-70.0); PLATELET COUNT 412 TH/MM3 (150-450); RED BLOOD COUNT 4.69 MIL/MM3 (4.00-5.30); RED CELL DISTRIBUTION WIDTH 14.3 % (11.6-17.2); WHITE BLOOD COUNT 7.4 TH/MM3 (4.0-11.0)
[2017-12-31 13:29] LABS: BILIRUBIN, URINE NEG (NEG); BLOOD, URINE NEG (NEG); GLUCOSE,URINE NEG (NEG); KETONE, URINE NEG (NEG); NITRITE,URINE NEG (NEG); SQUAMOUS EPITHELIAL CELL URINE <1 /hpf (0-5); URINE COLOR Straw (YELLW/STRAW); URINE LEUKOCYTE ESTERASE NEG (NEG)
[2017-12-31 13:36] LABS: ALBUMIN 3.2 GM/DL (3.4-5.0); AST (GOT) 14 U/L (15-37); BICARBONATE 28.5 MEQ/L (21.0-32.0); BLOOD UREA NITROGEN 11 MG/DL (7-18); CALCIUM 8.8 MG/DL (8.5-10.1); CHLORIDE 105 MEQ/L (98-107); CREATININE 0.82 MG/DL (0.50-1.00); GLOMERULAR FILTRATION RATE 70 ML/MIN (>89); GLUCOSE,RANDOM 108 MG/DL (74-106); SODIUM (NA) 141 MEQ/L (136-145)
[2017-12-31 13:37] LABS: ALT (GPT) 18 U/L (10-53); PROTHROMBIN TIME - PATIENT 10.3 SEC (9.8-11.6)
[2017-12-31 13:39] LABS: ALKALINE PHOSPHATASE 88 U/L (45-117); TOTAL BILIRUBIN ADULT 0.3 MG/DL (0.2-1.0); TOTAL PROTEIN 6.5 GM/DL (6.4-8.2)
--- NOTE | 2017-12-31 13:54 | RADRPT ---
EXAM DATE: 12/31/2017 1:45 PM EDT AGE/SEX: 67 years / Female INDICATIONS: Lower abdomen pain. CLINICAL DATA: This is the patient's initial encounter. Patient reports that signs and symptoms have been present for 4 - 6 days and indicates a pain score of 6/10. MEDICAL/SURGICAL HISTORY: . Cardiovascular disease. Hypertension. Thyroid disease. Leukemia. As thma. Colitis . Hysterectomy. Abdominal surgery 12/09/2017. [place] [facility] [place] 12/15/2017. . FINDINGS: A single erect view of the abdomen demonstrates the lower lungs to be clear.No evidence of free intra peritoneal gas.The visualized bowel loops are unremarkable. Clips in the left abdomen. CONCLUSION: Nonobstructive bowel gas pattern. Electronically signed by: William Tenorio MD 12/31/2017 1:52 PM EDT
[2017-12-31] MEDS ORDERED: IOHEXOL 350 MG/ML 10 ML VIAL (for RAD DIAG) IVCONTRAST ONE (14:00)
[2017-12-31 14:17] VITALS: RESP 18
[2017-12-31] MEDS ORDERED: ZOFR4TAB PO (14:36)
[2017-12-31] MEDS ORDERED: MIRA3350 PO (14:36)
[2017-12-31] MEDS ORDERED: ACTO5TAB PO (14:36)
[2017-12-31] MEDS ORDERED: OMEP20TA93 PO (14:36)
[2017-12-31] MEDS ORDERED: TYLE325T PO (14:36)
--- NOTE | 2017-12-31 16:16 | RADRPT ---
EXAM DATE: 12/31/2017 2:08 PM EDT AGE/SEX: 67 years / Female INDICATIONS: Right sided abdomen pain for three weeks. CLINICAL DATA: This is the patient's initial encounter. Patient reports that signs and symptoms have been present for 3 weeks and indicates a pain score of 6/10. MEDICAL/SURGICAL HISTORY: Leukemia. Hysterectomy. Colon resection. ORAL CONTRAST: No oral contrast ingested. RADIATION DOSE: 14.65 CTDI (mGy) COMPARISON: [facility] [place], [place] ABDOMEN & PELVIS W CONTRAST, 12/15/2017. . TECHNIQUE: Multiple contiguous axial images were obtained through the abdomen and pelvis following b olus infusion of 90 ml Omnipaque 350 (iohexol) nonionic water-soluble contrast as a single exam dos e. No oral contrast ingested. Using automated exposure control and adjustment of the mA and/or kV ac cording to patient size, radiation dose was kept as low as reasonably achievable to obtain optimal di agnostic quality images. DICOM format image data is available electronically for review and comparis on. FINDINGS: Lung bases clear except for minimal dependent atelectasis. Stable small calcification and 1 cm low-at tenuation lesion right lobe liver. Splenic granulomata are also noted. 2.4 cm left adrenal nodule is stable. Right adrenal, kidneys and pancreas demonstrate no acute findings. No calcified gallstones. His prior laparotomy with 2 areas of anastomosis noted in the right mid and lower abdomen. Currently no bowel obstruction. Previous edematous changes in the anterior abdominal wall have improved. There is some residual fluid within the laparotomy scar measuring about 2.5 cm similar to prior exam. Previ ous fluid in the mesentery has resolved. No free fluid or free air. CONCLUSION: 1. Postoperative changes of bowel and anastomosis as above. No obstruction, free fluid or free air. No renal calculi or hydronephrosis. Stable left adrenal nodule. Electronically signed by: Toño Fregoso MD 12/31/2017 4:15 PM EDT
--- NOTE | 2017-12-31 19:58 | PD ---
Physical Exam Date Seen by Provider: Dec 31, 2017 Time Seen by Provider: 13:30 Narrative I, Dr. Angeles, have reviewed the advance practice practitioner's documentation and am in agreement, met with the patient face to face, made the diagnosis, and the medical decision making was done by me. *My assessment and Findings: Patient seen and evaluated with nurse practitioner , please see nurse practitioner chart for further details. She has history of CLL, currently in [place], had previously followed up with Dr. Trimble, small bowel obstruction status post resection several weeks ago, and is here for further abdominal pains, is diffusely tender. Lab work and CAT scan did not show any signs of acute processes. Case had been discussed with Dr. Perez who is planning to follow-up with her. In addition, patient is fairly concerned that she has not had her IVIG recently because she is stuck here in [place] and her oncologist is in [place], case was also discussed with Dr. Ravi who states that the patient can follow-up in oncology clinic for this issue, call Monday. Laboratory Tests Test 12/31/17 13:00 12/31/17 13:05 Activated Partial Thromboplast Time 37.1 SEC (24.3-30.1) Random Glucose 108 MG/DL (74-106) Albumin 3.2 GM/DL (3.4-5.0) Aspartate Amino Transf (AST/SGOT) 14 U/L (15-37) Estimat Glomerular Filtration Rate 70 ML/MIN (>89) Last 24 hours Impressions Abdomen/Pelvis CT 12/31/17 1251 Signed Impressions: CONCLUSION: 1. Postoperative changes of bowel and anastomosis as above. No obstruction, fr ee fluid or free air. No renal calculi or hydronephrosis. Stable left adrenal n odule. Abdomen X-Ray 12/31/17 1251 Signed Impressions: CONCLUSION: Nonobstructive bowel gas pattern. Data Data Last Documented VS Vital Signs Date Time Temp Pulse Resp B/P (MAP) Pulse Ox O2 Delivery O2 Flow Rate FiO2 12/31/17 18:04 12/31/17 14:17 18 12/31/17 12:53 97 Room Air 12/31/17 12:49 98.3 79 Orders Orders Complete Blood Count With Diff (12/31/17 12:51) Comprehensive Metabolic Panel (12/31/17 12:51) Lipase (12/31/17 12:51) Lactic Acid (12/31/17 12:51) Prothrombin Time / Inr (Pt) (12/31/17 12:51) Act Partial Throm Time (Ptt) (12/31/17 12:51) Urinalysis - C+S If Indicated (12/31/17 12:51) Ct Abd/Pel W Iv Contrast(Rout) (12/31/17 12:51) Iv Access Insert/Monitor (12/31/17 12:51) Ecg Monitoring (12/31/17 12:51) Oximetry (12/31/17 12:51) Sodium Chlor 0.9% 1000 Ml Inj (Ns 1000 M (12/31/17 12:51) Sodium Chloride 0.9% Flush (Ns Flush) (12/31/17 13:00) Abdomen, Upright Only (12/31/17 12:51) Ketorolac Inj (Toradol Inj) (12/31/17 13:00) Iohexol 350 Inj (Omnipaque 350 Inj) (12/31/17 14:00) Ed Discharge Order (12/31/17 16:42) Labs Laboratory Tests Test 12/31/17 13:00 12/31/17 13:05 White Blood Count 7.4 TH/MM3 Red Blood Count 4.69 MIL/MM3 Hemoglobin 13.5 GM/DL Hematocrit 40.5 % Mean Corpuscular Volume 86.5 FL Mean Corpuscular Hemoglobin 28.8 PG Mean Corpuscular Hemoglobin Concent 33.3 % Red Cell Distribution Width 14.3 % Platelet Count 412 TH/MM3 Mean Platelet Volume 8.8 FL Neutrophils (%) (Auto) 57.8 % Lymphocytes (%) (Auto) 33.0 % Monocytes (%) (Auto) 7.9 % Eosinophils (%) (Auto) 0.8 % Basophils (%) (Auto) 0.5 % Neutrophils # (Auto) 4.3 TH/MM3 Lymphocytes # (Auto) 2.5 TH/MM3 Monocytes # (Auto) 0.6 TH/MM3 Eosinophils # (Auto) 0.1 TH/MM3 Basophils # (Auto) 0.0 TH/MM3 CBC Comment DIFF FINAL Differential Comment Prothrombin Time 10.3 SEC Prothromb Time International Ratio 1.0 RATIO Activated Partial Thromboplast Time 37.1 SEC Urine Color Straw Urine Turbidity CLEAR Urine pH 8.0 Urine Specific [place] 1.004 Urine Protein NEG mg/dL Urine Glucose (UA) NEG mg/dL Urine Ketones NEG mg/dL Urine Occult Blood NEG Urine Nitrite NEG Urine Bilirubin NEG Urine Urobilinogen LESS THAN 2 mg/dL Urine Leukocyte Esterase NEG Urine RBC LESS THAN 1 /hpf Urine WBC LESS THAN 1 /hpf Urine Squamous Epithelial Cells <1 /hpf Microscopic Urinalysis Comment CATH-CULT NOT IND Blood Urea Nitrogen 11 MG/DL Creatinine 0.82 MG/DL Random Glucose 108 MG/DL Total Protein 6.5 GM/DL Albumin 3.2 GM/DL Calcium Level 8.8 MG/DL Alkaline Phosphatase 88 U/L Aspartate Amino Transf (AST/SGOT) 14 U/L Alanine Aminotransferase (ALT/SGPT) 18 U/L Total Bilirubin 0.3 MG/DL Sodium Level 141 MEQ/L Potassium Level 3.7 MEQ/L Chloride Level 105 MEQ/L Carbon Dioxide Level 28.5 MEQ/L Anion Gap 8 MEQ/L Estimat Glomerular Filtration Rate 70 ML/MIN Lipase 160 U/L Lactic Acid Level 0.9 mmol/L [facility] Medical Record Reviewed: Yes Supervised Visit with HECTOR: Yes Diagnosis Primary Impression: Abdominal pain Additional Impression: Post-op pain Referrals: Yuan Perez MD Primary Care Physician Patient Instructions: General Instructions, Abdominal Pain (ED) Departure Forms: Tests/Procedures Additional Instruction: Contact Dr. Perez for follow-up Continue all postop instructions Return immediately with acute worsening of symptoms Disposition: 03 DISCHARGE TO SNF Condition: Stable Catrina Angeles MD Dec 31, 2017 19:58
== END 2017-12-31 18:06 ==
LOC: NEPE 12:38
DX: R10.33 Periumbilical pain (principal); G89.18 Other acute postprocedural pain; R11.0 Nausea; I10 Essential (primary) hypertension; E07.9 Disorder of thyroid, unspecified; F41.9 Anxiety disorder, unspecified; Z98.890 Other specified postprocedural states; Z87.09 Personal history of other diseases of the respiratory system; Z87.39 Personal history of other diseases of the musculoskeletal system and connective tissue; Z87.442 Personal history of urinary calculi
CPT/HCPCS: 74018; 74177; 80053; 81001; 83605; 83690; 85025; 85610; 85730; 96361; 96374; 99285; J1885; J7030; Q9967